=== PATIENT | female | born 1950 | race Caucasian/White ===

== ENCOUNTER 2017-01-07 12:59 | Emergency (ER) | payer SELFPAY ==
[2016-08-10 17:13] VITALS: BMI 21.3
[~2017-01-07 12:59] MED LIST: CARAFATE1 G PO; KLONOPIN1 MG PO; PEPCID INJ20 MG/2 ML PO
[2017-01-07 14:33] LABS: APPEARANCE HAZY (CLEAR); BACTERIA FEW /hpf (NONE SEEN); BILIRUBIN NEGATIVE (NEGATIVE); COLOR YELLOW (YELLOW); GLUCOSE NEGATIVE (NEGATIVE); GRANULAR CAST RARE /lpf (NONE SEEN); HYALINE CAST RARE /lpf (NONE SEEN); KETONE NEGATIVE (NEGATIVE); LEUKOCYTE ESTERASE NEGATIVE (NEGATIVE); MUCUS <1+ /lpf (NONE SEEN); NITRITE NEGATIVE (NEGATIVE); PROTEIN TRACE mg/dL (NEGATIVE); RED CELLS - URINE 0-5 /hpf (0-5); UROBILINOGEN NORMAL (NORMAL); WHITE CELLS - URINE 0-5 /hpf (0-5)
== END 2017-01-07 15:41 | disposition home or self-care (01) ==
LOC: D.ER 12:59
PROVIDERS: Emergency Medicine
DX: R10.9 Unspecified abdominal pain (principal); K29.00 Acute gastritis without bleeding; M79.1 Myalgia

== ENCOUNTER 2017-02-20 10:49 | Inpatient (IN) | payer SELFPAY ==
[~2017-02-20] VITALS: Ht 172.7 cm; Wt 64.4 kg
[2017-02-20 11:18] LABS: APPEARANCE CLEAR (CLEAR); BILIRUBIN NEGATIVE (NEGATIVE); COLOR STRAW (YELLOW); GLUCOSE NEGATIVE (NEGATIVE); KETONE NEGATIVE (NEGATIVE); LEUKOCYTE ESTERASE TRACE (NEGATIVE); NITRITE NEGATIVE (NEGATIVE); PROTEIN NEGATIVE (NEGATIVE); UROBILINOGEN NORMAL (NORMAL)
[2017-02-20 11:19] LABS: BACTERIA MODERATE /hpf (NONE SEEN); EPITHELIAL CELLS RARE /hpf (0-5); MUCUS <1+ /lpf (NONE SEEN); RED CELLS - URINE 0-5 /hpf (0-5); WHITE CELLS - URINE OCC /hpf (0-5)
[2017-02-20 11:22] LABS: BASOPHILS 0.2 % (0.0-2.0); EOSINOPHILS 0.2 % (0-7); HEMATOCRIT 42.8 % (36.0-48.0); HEMOGLOBIN 14.5 g/dL (12-16); IMMATURE GRANULOCYTES 0.3 % (0-5); LYMPHOCYTES 15.1 % (15-50); MCH 30.4 pg (26.0-34.0); MCHC 33.9 g/dL (31.0-37.0); MCV 89.7 fL (80.0-100.0); MEAN PLATELET VOLUME 11.1 fL (7.4-10.4); MONOCYTES 8.4 % (2-11); NEUTROPHILS 75.8 % (40-80); RBC 4.77 10x6/uL (4.00-5.40); RDW 13.6 % (11.5-14.5)
[2017-02-20 11:23] LABS: PLATELET COUNT 224 10x3/uL (130-400)
[2017-02-20 11:37] LABS: ALBUMIN 3.7 g/dL (3.4-5.0); ANION GAP 14.9 mmol/L (8-16); BILIRUBIN - TOTAL 1.02 mg/dL (0.2-1.3); CALCIUM 9.4 mg/dL (8.5-10.1); CARBON DIOXIDE 26.5 mmol/L (21.0-32.0); CREATININE - SERUM 0.9 mg/dL (0.6-1.3); POTASSIUM - SERUM 3.4 mmol/L (3.5-5.1); PROTEIN - SERUM 7.9 g/dL (6.4-8.2)
--- NOTE | 2017-02-20 13:50 | NUR ---
PATIENT RECEIVED TO FLOOR FROM ER VIA STRETCHER. PATIENT TRANSFERRED SELF TO STRETCHER. IV TO RIGHT HAND WITH NS@[address] AND VERIFIED WITH AIR BOLUS. CONNECT TO LIWS. PATIENT ORIENTED TO ROOM. STATES UNDERSTANDING. RATES PAIN 10/10. ASSESSMENT COMPLETE. SIDE RAILS UP X2. BED IN LOW POSITION. CALL LIGHT IN REACH.
--- NOTE | 2017-02-20 13:56 | NUR ---
2MG MORPHINE ADMINISTERED SLOW IVP PER PRN ORDER. WELL TOLERATED. DENIES FURTHER NEEDS. SIDE RAILS UP X2. BED IN LOW POSITION. CALL LIGHT IN REACH.
[2017-02-20 14:04] VITALS: BP 137/81; BMI 21.6
[2017-02-20 14:15] VITALS: BP 137/84
--- NOTE | 2017-02-20 16:30 | NUR ---
ALERT IN BED RESTING QUIETLY. RESPIRATIONS EVEN AND UNLABORED. SIDE RAILS UP X2. BED IN LOW POSITION. CALL LIGHT IN REACH.
--- NOTE | 2017-02-20 17:43 | NUR ---
PATIENT ALERT IN BED. C/O PAIN 07/17. MORPHINE ADMINISTERED PER ORDER. DENIES FURTHER NEEDS. SIDE RAILS UP X2. BED IN LOW POSITION. CALL LIGHT IN REACH.
--- NOTE | 2017-02-20 19:40 | NUR ---
RECIEVED SHIFT REPORT. PT IS LYING IN BED. ALERT AND ORIENTED AND ABLE TO VERBALIZE NEEDS. IV IS PATENT AND FLUIDS ARE RUNNING PER ORDER. NGT TO RIGHT NARE PATENT AND CONNECTED TO LIWS. PT IS AMBULATORY BUT WAS INSTRUCTED TO CALL FOR ANY ASSISTANCE NEEDED. PT STATES PAIN IS 7/10. NO NEEDS ARE VERBALIZED AT THIS TIME. WILL CONTINUE TO MONITOR. SIDE RAILS ARE UP X 2. BED IS IN LOWEST POSITION. CALL LIGHT IS WITHIN REACH.
[2017-02-20 20:00] VITALS: BP 127/63
--- NOTE | 2017-02-20 20:19 | NUR ---
CALLED SOLID PLASTERER IVY FOR PT REQUESTING HER HOME MEDICATION OF KLONOPIN. SOLID PLASTERER STATED THAT SHE WAS IN REPORT AND WOULD TAKE CARE OF IT.
--- NOTE | 2017-02-20 20:52 | NUR ---
SHIFT ASSESSMENT COMPLETED. PT C/O PAIN 05/16. ADMINISTERED PRESCRIBED PRN MORPHINE PER ORDER. DENIES FURTHER NEEDS. WILL MONITOR. SIDE RAILS X 2. BED LOW. CALL LIGHT IN REACH.
[2017-02-21] VITALS: BP 122/62
--- NOTE | 2017-02-21 01:20 | NUR ---
PT IV RESITED BY ANOTHER NURSE ON FLOOR. PT IV TO RIGHT HAND CATHETER TIP WAS OUT AND PUMP CONTINUED TO SAY OCCLUDED. D/C'D WITH CATHETER TIP INTACT. FLUIDS HOOKED BACK UP PER ORDER. SIDE RAILS X 2. BED LOW. CALL LIGHT IN REACH.
[2017-02-21 04:00] VITALS: BP 130/66
[2017-02-21 06:12] LABS: BASOPHILS 0.3 % (0.0-2.0); EOSINOPHILS 0.9 % (0-7); HEMATOCRIT 36.8 % (36.0-48.0); HEMOGLOBIN 12.2 g/dL (12-16); IMMATURE GRANULOCYTES 0.1 % (0-5); LYMPHOCYTES 27.7 % (15-50); MCH 30.3 pg (26.0-34.0); MCHC 33.2 g/dL (31.0-37.0); MCV 91.5 fL (80.0-100.0); MEAN PLATELET VOLUME 11.6 fL (7.4-10.4); MONOCYTES 11.4 % (2-11); NEUTROPHILS 59.6 % (40-80); PLATELET COUNT 206 10x3/uL (130-400); RBC 4.02 10x6/uL (4.00-5.40); RDW 13.5 % (11.5-14.5)
[2017-02-21 06:23] LABS: CALC OSMOLALITY 279 mosm/kg (275-300); CALCIUM 8.7 mg/dL (8.5-10.1); CHLORIDE - SERUM 106 mmol/L (98-107); CREATININE - SERUM 0.8 mg/dL (0.6-1.3); GLUCOSE 114 mg/dL (74-106); POTASSIUM - SERUM 3.2 mmol/L (3.5-5.1); SODIUM 141 mmol/L (136-145); eGFR NON AFRICAN AMERICAN 76 mL/min (90-120)
[2017-02-21 06:28] LABS: UREA NITROGEN 6 mg/dL (7-18)
--- NOTE | 2017-02-21 07:00 | NUR ---
REPORT RECIEVED ASSUMED CARE. PATIENT IN BED WITH IV INTACT. NO COMPLAINTS AT THIS TIME. NGT LIWS. CALL LIGHT WITHIN REACH.
[2017-02-21 08:26] VITALS: BP 121/73
--- NOTE | 2017-02-21 08:45 | NUR ---
PATIENT IV INFILTRATED. REMOVED WITH CATH TIP INTACT.
--- NOTE | 2017-02-21 11:01 | NUR ---
IV ACCESS-20 GAUGE INSERTED IN LEFT UPPER ARM FOR ACCESS. AMY LEONARD RN
--- NOTE | 2017-02-21 11:15 | NUR ---
PATIENT RECIEVED PAIN MED IVP SLOWLY OVER 2 MINUTES. NGT LIWS. NO COMPLAINTS. CALL LIGHT WITHIN REACH.
[2017-02-21 11:39] VITALS: BP 119/72
--- NOTE | 2017-02-21 13:35 | NUR ---
Patient Name: FABIAN CORTEZ Admission Status: ER Accout number: [id number] Admission Date: 02-20-2017 : 1950 Admission Diagnosis: Attending: SESAR Current LOS: 1 Anticipated DC Date: 02-24-2017 Planned Disposition: Home Primary Insurance: UNINSURED DISCOUNT PLAN Discharge Planning Comments: CM MET WITH PATIENT REGARDING D/C NEEDS AND PLANS. PATIENT STATED SHE LIVES WITH HER SISTER (MERLY) AND SHE WILL DRIVE HER HOME AT DISCHARGE. PATIENT STATED SHE HAS 8 STEPS W/RAILS TO ENTER HOME AND NO STAIRS INSIDE. PATIENT STATED SHE IS INDEPENDENT WITH HER CARE AND HAS NO DME AT HOME. PATIENTS PCP IS DR. GRAF AND PHARMACY IS [facility] [address]. PATIENT HAS NOT HAD HOME HEALTH AND DOES NOT WANT IT WHEN DISCHARGED. CM WILL CONTINUE TO FOLLOW PATIENT WITH D/C NEEDS AND PLANS. PCP DR[facility] [id number] MERLY MORRELL (SISTER) [phone] Spanish Linguist: Rukhsana Heath Is the patient Alert and Oriented? Yes 0 * How many steps to enter\exit or inside your home? 8 W/RAILS 0 * PCP DR. GRAF 0 * Pharmacy [facility] [address] 0 * Preadmission Environment Home with Family 0 * ADLs Independent 0 * Equipment None 0 * List name and contact numbers for known caregivers / representatives who currently or will assist patient after discharge: MERLY MORRELL (SISTER) [phone] 0 * Community resources currently utilized None 0 * Additional services required to return to the preadmission environment? Yes 0 * Can the patient safely return to the preadmission environment? Yes 0 * Has this patient been hospitalized within the prior 30 days at any hospital? No 0 Grand Total: 0
[2017-02-21 13:43] VITALS: Ht 172.7 cm; Wt 64.4 kg
[2017-02-21 15:26] VITALS: BP 120/78
--- NOTE | 2017-02-21 16:42 | NUR ---
PATIENT IN BED WITH IV INTACT. NGT LIWS. NO COMPLAINTS OR SIGNS OF DISTRESS AT THIS TIME. CALL LIGHTW ARMEN TY.
--- NOTE | 2017-02-21 18:50 | NUR ---
PATIENT IN BED WITH IV INTACT. COMPLAINTS OF NAUSEA REGLAN TO BE GIVEN. NGT INTACT AND TO LIWS. CALL LIGHT WITHIN REACH.
--- NOTE | 2017-02-21 19:35 | NUR ---
RECIEVED SHIFT REPORT. PT IS LYING IN BED. ALERT AND ORIENTED AND ABLE TO VERBALIZE NEEDS. IV IS PATENT AND FLUIDS ARE RUNNING PER ORDER. NGT TO RIGHT NARE PATENT AND CONNECTED TO LIWS. PT IS AMBULATORY BUT WAS INSTRUCTED TO CALL FOR ANY ASSISTANCE NEEDED. PT STATES PAIN IS 9/10. PT REQUESTING PRN ATIVAN AND MORPHINE. INSTRUCTED PT THAT I WOULD RETURN WITH MEDICATION AFTER MY ROUNDS. VERBALIZED UNDERSTANDING. NO FURTHER NEEDS VOICED AT THIS TIME. WILL CONTINUE TO MONITOR. SIDE RAILS ARE UP X 2. BED IS IN LOWEST POSITION. CALL LIGHT IS WITHIN REACH.
[2017-02-21 20:00] VITALS: BP 139/73
--- NOTE | 2017-02-21 20:17 | NUR ---
SHIFT ASSESSMENT COMPLETED. PT C/O PAIN 07/17 AND ANXIETY. ADMINISTERED PRN MORPHINE AND ATIVAN PER ORDER. DENIES FURTHER NEEDS. WILL MONITOR. SIDE RAILS X 2. BED LOW. CALL LIGHT IN REACH.
[2017-02-22] VITALS: BP 136/81
[2017-02-22 06:03] LABS: BASOPHILS 0.3 % (0.0-2.0); EOSINOPHILS 1.6 % (0-7); HEMATOCRIT 36.2 % (36.0-48.0); LYMPHOCYTES 33.7 % (15-50); MCH 30.2 pg (26.0-34.0); MCHC 33.1 g/dL (31.0-37.0); MEAN PLATELET VOLUME 11.2 fL (7.4-10.4); MONOCYTES 9.8 % (2-11); NEUTROPHILS 54.6 % (40-80); PLATELET COUNT 208 10x3/uL (130-400); RBC 3.98 10x6/uL (4.00-5.40); RDW 13.2 % (11.5-14.5); WBC 6.8 10x3/uL (4.8-10.8)
--- NOTE | 2017-02-22 07:00 | NUR ---
REPORT RECIEVED ASSUMED CARE. PATIENT IN BED WITH IV INTACT. NO COMPLAINTS. NGT LIWS. CALL LIGHT WITHIN REACH.
[2017-02-22 07:07] LABS: ALKALINE PHOSPHATASE 83 U/L (46-116); AMYLASE - SERUM 23 U/L (25-115); CALCIUM 9.1 mg/dL (8.5-10.1); CARBON DIOXIDE 28.5 mmol/L (21.0-32.0); CHLORIDE - SERUM 108 mmol/L (98-107); CREATININE - SERUM 0.6 mg/dL (0.6-1.3); GLUCOSE 116 mg/dL (74-106); LIPASE 77 U/L (73-393); MAGNESIUM - SERUM 1.8 mg/dL (1.8-2.4); PHOSPHOROUS 3.3 mg/dL (2.5-4.9); POTASSIUM - SERUM 3.6 mmol/L (3.5-5.1); SODIUM 143 mmol/L (136-145); THYROID STIMULATING HORMONE 2.04 uIU/mL (0.36-3.74); eGFR NON AFRICAN AMERICAN > 90 mL/min (90-120)
[2017-02-22 07:17] LABS: ALBUMIN 2.7 g/dL (3.4-5.0); ALT (SGPT) 16 U/L (10-68); CALC OSMOLALITY 282 mosm/kg (275-300); PROTEIN - SERUM 5.6 g/dL (6.4-8.2); UREA NITROGEN 3 mg/dL (7-18)
[2017-02-22 08:19] VITALS: BP 116/80
[2017-02-22 12:16] VITALS: BP 127/85
[2017-02-22 16:44] VITALS: BP 124/70
--- NOTE | 2017-02-22 18:30 | NUR ---
IV REMOVED BY STUDNET AND INSTRUCTOR DUE TO PATIENT IV HURTING. CATH TIP INTACT. PATIENT CALL LIGHT WITHIN REACH.
--- NOTE | 2017-02-22 18:50 | NUR ---
TRIED RESTARTING PATIENTS IV IN LUE X 3 STICKS. UNABLE TO START. TREVON TURNER WILL COME OVER AND TRY TO START PATIENT IV. PATIENT IN BED WITH NGT TO LIWS. FRIEND AT BEDSIDE. CALL LIGHT WITHIN REACH.
--- NOTE | 2017-02-22 19:40 | NUR ---
RECIEVED SHIFT REPORT. PT IS LYING IN BED. ALERT AND ORIENTED AND ABLE TO VERBALIZE NEEDS. PT WITHOUT IV ACCESS AT THIS TIME. DAY SHIFT ATTEMPTED MULTIPLE TIMES WITH NO SUCCESS. NGT TO RIGHT NARE INTACT AND CONNECTED TO LIWS. PT IS AMBULATORY BUT WAS INSTRUCTED TO CALL FOR ANY ASSISTANCE NEEDED. PT STATES PAIN IS 9/10. INSTRUCTED PT THAT SOON AN IV IS IN PLACE PAIN MEDICATION COULD BE ADMINISTERED. UNDERSTANDING VERBALIZED. NO NEEDS ARE VERBALIZED AT THIS TIME. WILL CONTINUE TO MONITOR. VISITOR AT BEDSIDE. SIDE RAILS ARE UP X 1. BED IS IN LOWEST POSITION. CALL LIGHT IS WITHIN REACH.
[2017-02-22 20:00] VITALS: BP 151/74
--- NOTE | 2017-02-22 20:44 | NUR ---
SHIFT ASSESSMENT COMPLETED. IV STARTTED BY ED NURSE. PT C/O PAIN 07/17. ADMINISTERED PRN MORPHINE PER ORDER. FLUIDS HOOKED BACK UP PER ORDER. DENIES FURTHER NEEDS. VISITOR AT BEDSIDE. WILL MONITOR. SIDE RAILS X 2. BED LOW. CALL LIGHT IN REACH.
[2017-02-23] VITALS: BP 114/65
[2017-02-23 04:00] VITALS: BP 113/68
[2017-02-23 05:37] LABS: BASOPHILS 0.8 % (0.0-2.0); EOSINOPHILS 1.8 % (0-7); HEMATOCRIT 36.4 % (36.0-48.0); IMMATURE GRANULOCYTES 0.3 % (0-5); LYMPHOCYTES 38.4 % (15-50); MCH 30.2 pg (26.0-34.0); MCV 91.5 fL (80.0-100.0); MEAN PLATELET VOLUME 12.1 fL (7.4-10.4); MONOCYTES 9.2 % (2-11); NEUTROPHILS 49.5 % (40-80); PLATELET COUNT 170 10x3/uL (130-400); RBC 3.98 10x6/uL (4.00-5.40); RDW 13.1 % (11.5-14.5); WBC 6.5 10x3/uL (4.8-10.8)
[2017-02-23 06:03] LABS: ALBUMIN 2.6 g/dL (3.4-5.0); ALKALINE PHOSPHATASE 75 U/L (46-116); ALT (SGPT) 13 U/L (10-68); CALCIUM 9.2 mg/dL (8.5-10.1); CARBON DIOXIDE 26.2 mmol/L (21.0-32.0); CREATININE - SERUM 0.7 mg/dL (0.6-1.3); GLUCOSE 107 mg/dL (74-106); UREA NITROGEN 3 mg/dL (7-18); eGFR NON AFRICAN AMERICAN 89 mL/min (90-120)
[2017-02-23 06:43] LABS: CALC OSMOLALITY 279 mosm/kg (275-300); CHLORIDE - SERUM 107 mmol/L (98-107); POTASSIUM - SERUM 3.2 mmol/L (3.5-5.1); SODIUM 142 mmol/L (136-145)
[2017-02-23 08:15] VITALS: BP 118/61
[2017-02-23 12:11] VITALS: BP 126/80
--- NOTE | 2017-02-23 13:16 | NUR ---
NUTRITION MONITORING & EVAL NOW WITH CLEAR LIQUID DIET>AAT. WILL MONITOR DIET ADVANCEMENT, PO INTAKE. RD FOLLOWING
[2017-02-23 20:00] VITALS: BP 136/68
--- NOTE | 2017-02-23 20:07 | NUR ---
PATIENT REQUESTED PAIN MEDICATION WHEN IT IS DUE. BED IN LOWEST POSITION AND CALL LIGHT WITHIN REACH. ENCOURAGED PATIENT TO CALL IF SHE HAS FURTHER NEEDS.
[2017-02-24] VITALS: BP 136/79
[2017-02-24 03:00] VITALS: BP 132/81
[2017-02-24 05:50] LABS: ALBUMIN 2.8 g/dL (3.4-5.0); ALKALINE PHOSPHATASE 77 U/L (46-116); ALT (SGPT) 13 U/L (10-68); BILIRUBIN - TOTAL 0.37 mg/dL (0.2-1.3); CALC OSMOLALITY 285 mosm/kg (275-300); CALCIUM 9.3 mg/dL (8.5-10.1); CARBON DIOXIDE 24.7 mmol/L (21.0-32.0); CHLORIDE - SERUM 111 mmol/L (98-107); CREATININE - SERUM 0.7 mg/dL (0.6-1.3); GLUCOSE 101 mg/dL (74-106); POTASSIUM - SERUM 3.4 mmol/L (3.5-5.1); PROTEIN - SERUM 6.4 g/dL (6.4-8.2); SODIUM 145 mmol/L (136-145); UREA NITROGEN 3 mg/dL (7-18); eGFR NON AFRICAN AMERICAN 89 mL/min (90-120)
[2017-02-24 06:19] LABS: BASOPHILS 0.9 % (0.0-2.0); EOSINOPHILS 2.1 % (0-7); HEMOGLOBIN 12.7 g/dL (12-16); IMMATURE GRANULOCYTES 0.6 % (0-5); LYMPHOCYTES 34.7 % (15-50); MCHC 33.4 g/dL (31.0-37.0); MCV 89.6 fL (80.0-100.0); MEAN PLATELET VOLUME 12.3 fL (7.4-10.4); MONOCYTES 8.2 % (2-11); NEUTROPHILS 53.5 % (40-80); RBC 4.24 10x6/uL (4.00-5.40); RDW 13.1 % (11.5-14.5); WBC 6.6 10x3/uL (4.8-10.8)
[2017-02-24 06:20] LABS: PLATELET COUNT 129 10x3/uL (130-400)
--- NOTE | 2017-02-24 07:20 | NUR ---
PATIENT RECEIVED IN BED ALERT. NO SIGNS OF DISTRESS NOTED. SIDE RAILS UP X2. BED IN LOW POSITION. CALL LIGHT IN REACH. DENIES NEEDS.
--- NOTE | 2017-02-24 07:43 | NUR ---
ALERT IN BED. KLONOPIN ADMINISTERED PER PRN ORDER. NGT CLAMPED. DENIES FURTHER NEEDS. SIDE RAILS UP X2. BED IN LOW POSITION. CALL LIGHT IN REACH.
--- NOTE | 2017-02-24 08:00 | NUR ---
PATIENT UP AMBULATING IN HALLWAY WITHOUT ASSIST. NO SIGNS OF DISTRESS NOTED. WILL CONTINUE TO MONITOR.
[2017-02-24 09:08] VITALS: BP 114/86
--- NOTE | 2017-02-24 11:02 | NUR ---
PATIENT C/O PAIN 06/16. MORPHINE ADMINISTERED PER PRN ORDER. DENIES FURTHER NEEDS. SIDE RAILS UP X2. BED IN LOW POSITION. CALL LIGHT IN REACH.
--- NOTE | 2017-02-24 11:05 | NUR ---
NGT D/C PER ORDER. TIP INTACT. WELL TOLERATED.
[2017-02-24 12:55] VITALS: BP 123/80
--- NOTE | 2017-02-24 12:55 | NUR ---
PATIENT SITTING UPRIGHT IN BED ALERT. NO SIGNS OF DISTRESS NOTED. STATES SHE'S TOLERATING CLEAR LIQUIDS WITHOUT DIFFICULTY. SIDE RAILS UP X2. BED IN LOW POSITION. CALL LIGHT IN REACH. DENIES NEEDS.
--- NOTE | 2017-02-24 14:30 | NUR ---
ALERT IN BED. NORCO ADMINISTERED PER PRN ORDER. POTASSIUM REPLACED PER PROTOCOL. DENIES NEEDS. BED IN LOW POSITION. SIDE RAILS UP X2. BED IN LOW POSITION. CALL LIGHT IN REACH.
--- NOTE | 2017-02-24 16:30 | NUR ---
PATIENT IN RIGHT LATERAL POSITION RESTING WITH EYES CLOSED. RESPIRATIONS EVEN AND UNLABORED. SIDE RAILS UP X2. BED IN LOW POSITION. CALL LIGHT IN REACH.
[2017-02-24 16:59] VITALS: BP 112/70
--- NOTE | 2017-02-24 18:07 | NUR ---
PATIENT IN MID KABA POSITION RESTING QUIETLY WITH EYES CLOSED. RESPIRATIONS EVEN AND UNLABORED. SIDE RAILS UP X2. BED IN LOW POSITION. CALL LIGHT IN REACH.
--- NOTE | 2017-02-24 19:38 | NUR ---
SITTING UP IN BED AWAKE, ASSESSMENT COMPLETED, NO ACUTE DISTRESS NOTED, DENIES NEEDS, LAB IN ROOM, SR'S UP, CL IN REACH, WILL MONITOR
[2017-02-24 20:00] VITALS: BP 114/61
--- NOTE | 2017-02-24 20:17 | NUR ---
PRN KLONOPIN GIVEN PER MAR, ABDIRIZAK WELL, DENIES FURTHER NEEDS AT THIS TIME, CL IN REACH
--- NOTE | 2017-02-24 22:37 | NUR ---
PRN NORCO GIVEN FOR C/O R SIDE PAIN 05/16, ABDIRIZAK WELL, DENIES OTHER NEEDS, FALL PRECAUTIONS IN PLACE, CL IN REACH
[2017-02-25] VITALS: BP 102/49
--- NOTE | 2017-02-25 00:37 | NUR ---
REGLAN GIVEN PER MAR, ABDIRIZAK WELL, RESTING WITH EYES CLOSED, RESP WITH EASE, SAFETY MEASURES IN PLACE, CL IN REACH
--- NOTE | 2017-02-25 01:58 | NUR ---
RESTING WITH EYES CLOSED, RESP WITH EASE, NO DISTRESS NOTED, SR'S UP X2, CL IN REACH
[2017-02-25 04:00] VITALS: BP 100/58
--- NOTE | 2017-02-25 05:20 | NUR ---
REGLAN GIVEN PER MAR, ABDIRIZAK WELL, LAB IN ROOM, CL IN REACH
[2017-02-25 06:22] LABS: BASOPHILS 0.9 % (0.0-2.0); EOSINOPHILS 2.3 % (0-7); HEMATOCRIT 33.5 % (36.0-48.0); HEMOGLOBIN 11.4 g/dL (12-16); LYMPHOCYTES 47.2 % (15-50); MCH 30.9 pg (26.0-34.0); MCV 90.8 fL (80.0-100.0); MEAN PLATELET VOLUME 11.2 fL (7.4-10.4); MONOCYTES 8.7 % (2-11); NEUTROPHILS 40.9 % (40-80); RBC 3.69 10x6/uL (4.00-5.40); RDW 13.3 % (11.5-14.5); WBC 5.3 10x3/uL (4.8-10.8)
[2017-02-25 06:26] LABS: PLATELET COUNT 255 10x3/uL (130-400)
[2017-02-25 06:49] LABS: ALBUMIN 2.4 g/dL (3.4-5.0); ALKALINE PHOSPHATASE 65 U/L (46-116); ALT (SGPT) 14 U/L (10-68); CALC OSMOLALITY 281 mosm/kg (275-300); CARBON DIOXIDE 26.9 mmol/L (21.0-32.0); CHLORIDE - SERUM 109 mmol/L (98-107); CREATININE - SERUM 0.7 mg/dL (0.6-1.3); GLUCOSE 96 mg/dL (74-106); POTASSIUM - SERUM 3.6 mmol/L (3.5-5.1); PROTEIN - SERUM 5.7 g/dL (6.4-8.2); SODIUM 143 mmol/L (136-145); eGFR NON AFRICAN AMERICAN 89 mL/min (90-120)
[2017-02-25 06:54] LABS: UREA NITROGEN 4 mg/dL (7-18)
--- NOTE | 2017-02-25 06:55 | NUR ---
PATIENT RECEIVED ALERT IN HIGH KABA POSITION. RESPIRATIONS EVEN AND UNLABORED. DENIES NEEDS. SIDE RAILS UP X2. BED IN LOW POSITION. CALL LIGHT IN REACH.
[2017-02-25 07:52] VITALS: BP 139/55
[2017-02-25] MEDS ORDERED: MIRALAX17 GM PO (11:26)
--- NOTE | 2017-02-25 11:45 | NUR ---
IV TO RIGHT FOREARM D/C WITH CATH TIP INTACT. SITE COVERED WITH GAUZE AND BANDAID. D/C TEACHING PROVIDED. STATES UNDERSTANDING.
--- NOTE | 2017-02-25 11:52 | NUR ---
PATIENT D/C HOME WITH SISTER. TRANSFERRED DOWNSTAIRS VIA WHEELCHAIR
--- NOTE | 2017-02-25 14:29 | NUR ---
LATE ENTRY: PATIENT D/C HOME WITH HOUSE CALLS-NO OTHER NEEDS-FAMILY DROVE HER HOME.
== END 2017-02-25 11:52 | disposition home or self-care (01) | DRG 389 ==
LOC: D.ER 10:49 → D.MS 12:00
PROVIDERS: Emergency Medicine; Family Medicine; ADMIT Emergency Medicine
PROC: 0D9670Z Drainage of Stomach with Drainage Device, Via Natural or Artificial Opening (ICD-10-PCS; principal; 2017-02-20)
DX: K56.7 Ileus, unspecified (principal); F10.239 Alcohol dependence with withdrawal, unspecified; F41.9 Anxiety disorder, unspecified; K58.9 Irritable bowel syndrome, unspecified; R00.0 Tachycardia, unspecified

== ENCOUNTER 2017-03-10 21:28 | Inpatient (IN) | payer SELFPAY ==
[~2017-03-10] VITALS: Ht 172.7 cm; Wt 64.4 kg
[~2017-03-10 21:28] MED LIST changes: +MIRALAX17 GM PO
[2017-03-10 23:00] LABS: BASOPHILS 0.6 % (0-2); EOSINOPHILS 1.8 % (0-7); HEMATOCRIT 47.6 % (36.0-48.0); HEMOGLOBIN 15.6 g/dL (12-16); IMMATURE GRANULOCYTES 0.3 % (0-5); LYMPHOCYTES 46.3 % (15-50); MCHC 32.8 g/dL (31.0-37.0); MCV 91.5 fL (80.0-100.0); MONOCYTES 5.4 % (2-11); NEUTROPHILS 45.6 % (40-80); RDW 13.7 % (11.5-14.5); WBC 8.7 10x3/uL (4.8-10.8)
[2017-03-10 23:01] LABS: PLATELET COUNT 400 10x3/uL (130-400)
[2017-03-10 23:19] LABS: ALBUMIN 3.7 g/dL (3.4-5.0); ALKALINE PHOSPHATASE 136 U/L (46-116); ALT (SGPT) 19 U/L (10-68); BILIRUBIN - TOTAL 0.18 mg/dL (0.2-1.3); CALC OSMOLALITY 285 mosm/kg (275-300); CALCIUM 9.4 mg/dL (8.5-10.1); CHLORIDE - SERUM 108 mmol/L (98-107); CREATININE - SERUM 0.7 mg/dL (0.6-1.3); GLUCOSE 107 mg/dL (74-106); POTASSIUM - SERUM 4.5 mmol/L (3.5-5.1); PROTEIN - SERUM 7.7 g/dL (6.4-8.2); SODIUM 144 mmol/L (136-145); UREA NITROGEN 10 mg/dL (7-18); eGFR NON AFRICAN AMERICAN 89 mL/min (90-120)
[2017-03-10 23:22] LABS: CREATINE KINASE 55 UL (21-215); MAGNESIUM - SERUM 2.3 mg/dL (1.8-2.4)
[2017-03-10 23:23] LABS: TROPONIN-I < 0.017 ng/mL (0.000-0.060)
[2017-03-10 23:43] LABS: APPEARANCE CLEAR (CLEAR); BILIRUBIN NEGATIVE (NEGATIVE); COLOR YELLOW (YELLOW); GLUCOSE NEGATIVE (NEGATIVE); KETONE NEGATIVE (NEGATIVE); LEUKOCYTE ESTERASE NEGATIVE (NEGATIVE); NITRITE NEGATIVE (NEGATIVE); PROTEIN NEGATIVE (NEGATIVE); UROBILINOGEN NORMAL (NORMAL)
--- NOTE | 2017-03-11 03:40 | NUR ---
PATIENT RECEIVED TO ROOM VIA STRETCHER. ALERT AND ORIENTED. C/O ABD PAIN 05/16. ORIENTED TO ROOM AND USE OF CALL LIGHT. ORDERED MEDICATIONS STARTED AND EDUCATED ON PHARMACY CONSULTANT USE. DENIES ANY NEEDS AT THIS TIME. BED LOW. CALL LIGHT IN REACH
[2017-03-11 04:00] VITALS: BP 118/48
[2017-03-11 04:09] VITALS: BP 118/48; BMI 21.6
[2017-03-11 08:05] VITALS: BP 119/59
--- NOTE | 2017-03-11 08:09 | NUR ---
PRINTER TECHNICIAN STATED "THE PATIENT SAID THE ATIVAN DID NOTHING FOR HER. AND HER OXYGEN LEVEL IS 88% ON ROOM AIR." WENT IN PATIENT'S ROOM. PATIENT RESTING QUIETLY WITH EYES CLOSED. PATIENT AROUSED EASILY, OXYGEN SATURATION 79% ON ROOM AIR. GRABBED NASAL CANNULA, PUT HER ON 2L/MIN, ABOUT 45 SECONDS LATER, OXYGEN SATURATION 91% ON 2L/MIN. EXPLAINED TO PATIENT THAT SHE IS GETTING A STRONG MEDICATION WITH THE BURRITO MAKER AND THE IV ATIVAN IS ALSO A SEDATIVE AND CAN LEAD TO OVER SEDATION AND RESPIRATORY DEPRESSION. MOVED BURRITO MAKER BUTTON OUT OF REACH. TOLD PATIENT I AM MOVING IT OUT OF REACH FOR NOW. SHE VERBALIZED UNDERSTANDING.
[2017-03-11 11:51] VITALS: BP 125/74
[2017-03-11 11:55] LABS: BASOPHILS 0.6 % (0-2); EOSINOPHILS 0.2 % (0-7); HEMATOCRIT 40.8 % (36.0-48.0); HEMOGLOBIN 13.4 g/dL (12-16); IMMATURE GRANULOCYTES 0.2 % (0-5); LYMPHOCYTES 15.1 % (15-50); MCH 30.2 pg (26.0-34.0); MCHC 32.8 g/dL (31.0-37.0); MCV 92.1 fL (80.0-100.0); MEAN PLATELET VOLUME 10.8 fL (7.4-10.4); MONOCYTES 4.6 % (2-11); NEUTROPHILS 79.3 % (40-80); PLATELET COUNT 341 10x3/uL (130-400); RBC 4.43 10x6/uL (4.00-5.40); RDW 13.8 % (11.5-14.5); WBC 9.5 10x3/uL (4.8-10.8)
--- NOTE | 2017-03-11 12:00 | NUR ---
IV TO LEFT BREAST GROUP HOME OUT. WILL NOT FLUSH. D/V IV. CALLED AMY VASCULAR ACCESS NURSE.
--- NOTE | 2017-03-11 12:05 | NUR ---
OBTAINED ORDER FOR IM ZOFRAN DUE TO PATIENT NAUSEOUS AND NO IV ACCESS AT THIS TIME
[2017-03-11 12:26] VITALS: Ht 172.7 cm; Wt 64.4 kg
[2017-03-11 15:48] VITALS: BP 109/73
[2017-03-11 20:00] VITALS: BP 138/71
[2017-03-12] VITALS: BP 136/71
[2017-03-12 04:00] VITALS: BP 122/60
[2017-03-12 06:52] LABS: BASOPHILS 0.6 % (0-2); EOSINOPHILS 1.9 % (0-7); HEMATOCRIT 37.3 % (36.0-48.0); HEMOGLOBIN 12.1 g/dL (12-16); IMMATURE GRANULOCYTES 0.6 % (0-5); MCHC 32.4 g/dL (31.0-37.0); MCV 92.3 fL (80.0-100.0); MONOCYTES 6.6 % (2-11); NEUTROPHILS 52.3 % (40-80); RBC 4.04 10x6/uL (4.00-5.40); RDW 13.5 % (11.5-14.5)
[2017-03-12 06:54] LABS: PLATELET COUNT 269 10x3/uL (130-400); WBC 6.4 10x3/uL (4.8-10.8)
[2017-03-12 07:10] LABS: ALBUMIN 2.9 g/dL (3.4-5.0); ALKALINE PHOSPHATASE 104 U/L (46-116); ALT (SGPT) 15 U/L (10-68); BILIRUBIN - TOTAL 0.78 mg/dL (0.2-1.3); CALC OSMOLALITY 276 mosm/kg (275-300); CALCIUM 9.2 mg/dL (8.5-10.1); CARBON DIOXIDE 27.6 mmol/L (21.0-32.0); CHLORIDE - SERUM 107 mmol/L (98-107); CREATININE - SERUM 0.6 mg/dL (0.6-1.3); GLUCOSE 102 mg/dL (74-106); POTASSIUM - SERUM 4.3 mmol/L (3.5-5.1); SODIUM 140 mmol/L (136-145); UREA NITROGEN 8 mg/dL (7-18); eGFR NON AFRICAN AMERICAN > 90 mL/min (90-120)
--- NOTE | 2017-03-12 08:25 | NUR ---
PATIENT RESTING IN THE BED. AWAKE, ALERT, AND ORIENTED X4. SCHEDULED MORNING MEDICATIONS GIVEN TO PATIENT. PATIENT TOLERATED WELL. PATIENT DENIES ANY NEEDS AT PRESENT TIME. CALL LIGHT IN PATIENT'S REACH. WILL MONITOR.
[2017-03-12 09:57] VITALS: BP 128/74
--- NOTE | 2017-03-12 11:34 | NUR ---
PATIENT COMPLAINS OF PAIN IN HER ABDOMEN. PATIENT RATES HER PAIN LEVEL AN "8" ON A 0-10 SCALE. PRN DILAUDID GIVEN TO PATIENT FOR PAIN. PATIENT TOLERATED WELL. CALL LIGHT IN PATIENT'S REACH. WILL MONITOR.
[2017-03-12 11:56] VITALS: BP 135/66
--- NOTE | 2017-03-12 14:00 | NUR ---
BECKER CATHETER DC'D. BULB DEFLATED WITH 10 ML OF SALINE NOTED. PATIENT TOLERATED WELL. URINE CULTURE SENT TO THE LAB. WILL MONITOR PATIENT FOR VOIDING.
[2017-03-12 16:32] VITALS: BP 138/64
--- NOTE | 2017-03-12 19:30 | NUR ---
PT. IN BED WITH HOB UP FOR COMFORT. IV AT RT A.C. INFUSING WITHOUT ALARMS. PT. C/O RIGHT KNEE PAIN THAT WAS NOTICIED WHEN SHE FIRST GOT OOB TODAY. PT. STATES SHE FELL AT HOME AND THINKS SHE LANDED ON IT. NO VISIBLE DISCOLORATION BUT SLIGHT SWELLING OBSERVED. CALL LIGHT WITHIN REACH. ASSESSMENT COMPLETED.
[2017-03-12 20:00] VITALS: BP 126/78
--- NOTE | 2017-03-12 23:05 | NUR ---
PT. IN BED WITH HOB UP FOR COMFORT AND WATCHING TV. NO VOICED NEEDS AT THIS TIME AND WILL CONTINUE TO MONITOR PT. FOR PAIN. CALL LIGHT WITHIN REACH.
--- NOTE | 2017-03-13 03:01 | NUR ---
PT. IN BED WITH HOB UP FOR COMFORT WITH EYES CLOSED AND RESP. DEEP AND EVEN. CALL LIGHT WITHIN REACH.
[2017-03-13 04:00] VITALS: BP 129/68
[2017-03-13 06:47] LABS: BASOPHILS 0.3 % (0-2); EOSINOPHILS 1.4 % (0-7); HEMATOCRIT 37.1 % (36.0-48.0); IMMATURE GRANULOCYTES 0.1 % (0-5); LYMPHOCYTES 30.4 % (15-50); MCH 29.9 pg (26.0-34.0); MCHC 32.3 g/dL (31.0-37.0); MCV 92.5 fL (80.0-100.0); MEAN PLATELET VOLUME 10.7 fL (7.4-10.4); MONOCYTES 8.9 % (2-11); NEUTROPHILS 58.9 % (40-80); PLATELET COUNT 254 10x3/uL (130-400); RBC 4.01 10x6/uL (4.00-5.40); RDW 13.2 % (11.5-14.5); WBC 7.4 10x3/uL (4.8-10.8)
[2017-03-13 07:00] VITALS: BP 107/67
[2017-03-13 07:10] LABS: ALBUMIN 2.7 g/dL (3.4-5.0); ALKALINE PHOSPHATASE 91 U/L (46-116); ALT (SGPT) 14 U/L (10-68); BILIRUBIN - TOTAL 0.91 mg/dL (0.2-1.3); CALC OSMOLALITY 276 mosm/kg (275-300); CALCIUM 9.1 mg/dL (8.5-10.1); CHLORIDE - SERUM 106 mmol/L (98-107); CREATININE - SERUM 0.6 mg/dL (0.6-1.3); GLUCOSE 113 mg/dL (74-106); POTASSIUM - SERUM 3.7 mmol/L (3.5-5.1); PROTEIN - SERUM 6.2 g/dL (6.4-8.2); SODIUM 140 mmol/L (136-145); UREA NITROGEN 5 mg/dL (7-18); eGFR NON AFRICAN AMERICAN > 90 mL/min (90-120)
--- NOTE | 2017-03-13 07:20 | NUR ---
PATIENT IS AWAKE, ALERT, AND ORIENTED X4. NO COMPLAINTS OF PAIN AT PRESENT TIME. PATIENT DENIES ANY NEEDS. CALL LIGHT IN PATIENT'S REACH. WILL MONITOR PATIENT.
--- NOTE | 2017-03-13 07:42 | NUR ---
PATIENT IS RESTING IN HER BED. PATIENT IS AWAKE, ALERT, AND ORIENTED X4. SCHEDULED MORNING MEDICATIONS GIVEN TO PATIENT. PATIENT TOLERATED WELL. ASSESSMENT COMPLETED. SEE FLOWSHEET FOR ANY DETAILS. PATIENT DENIES ANY NEEDS AT PRESENT TIME. CALL LIGHT IN PATIENT'S REACH. SCD'S ON PATIENT'S BILATERAL LOWER EXTREMITIES. WILL MONITOR PATIENT.
--- NOTE | 2017-03-13 12:15 | NUR ---
PATIENT TRANSFERRED VIA WHEELCHAIR TO HAVE AN MRI OF HER RIGHT KNEE.
[2017-03-13 12:32] VITALS: BP 126/76
--- NOTE | 2017-03-13 12:49 | NUR ---
PATIENT RETURNED TO HER ROOM VIA WHEELCHAIR FROM THE MRI CENTER.
--- NOTE | 2017-03-13 14:35 | NUR ---
DR HARDEN HERE. BLADDER SCAN PERFORMED SHOWING 204 ML OF URINE IN PATIENT'S BLADDER.
[2017-03-13 14:57] VITALS: BP 125/72
--- NOTE | 2017-03-13 19:30 | NUR ---
RECIEVED SHIFT REPORT. PT IS LYING IN BED. ALERT AND ORIENTED AND ABLE TO VERBALIZE NEEDS. IV IS PATENT AND FLUIDS ARE RUNNING PER ORDER. SCD'S OFF AT THIS TIME. PT IS AMBULATORY BUT WAS INSTRUCTED TO CALL FOR ANY ASSISTANCE NEEDED. PT STATES PAIN IS 9/10. NO NEEDS ARE VERBALIZED AT THIS TIME. WILL CONTINUE TO MONITOR. SIDE RAILS ARE UP X 2. BED IS IN LOWEST POSITION. CALL LIGHT IS WITHIN REACH.
[2017-03-13 20:00] VITALS: BP 125/70
--- NOTE | 2017-03-13 20:39 | NUR ---
SHIFT ASSESSMENT COMPLETED. NIGHT MEDS GIVEN WITH NO PROBLEMS. PT C/O PAIN 06/16. ADMINISTERED PRESCRIBED PRN DILAUDID PER ORDER. DENIES FURTHER NEEDS. WILL MONITOR. SIDE RAILS X 2. BED LOW. CALL LIGHT IN REACH.
[2017-03-14] VITALS: BP 122/66
[2017-03-14 04:00] VITALS: BP 117/72
[2017-03-14 06:13] LABS: BASOPHILS 0.5 % (0-2); EOSINOPHILS 2.2 % (0-7); HEMATOCRIT 36.5 % (36.0-48.0); IMMATURE GRANULOCYTES 0.2 % (0-5); LYMPHOCYTES 34.4 % (15-50); MCH 30.3 pg (26.0-34.0); MCHC 32.9 g/dL (31.0-37.0); MCV 92.2 fL (80.0-100.0); MEAN PLATELET VOLUME 11.1 fL (7.4-10.4); MONOCYTES 8.7 % (2-11); PLATELET COUNT 236 10x3/uL (130-400); RBC 3.96 10x6/uL (4.00-5.40); RDW 13.3 % (11.5-14.5); WBC 6.3 10x3/uL (4.8-10.8)
[2017-03-14 06:36] LABS: ALBUMIN 2.7 g/dL (3.4-5.0); ALKALINE PHOSPHATASE 89 U/L (46-116); ALT (SGPT) 11 U/L (10-68); BILIRUBIN - TOTAL 0.36 mg/dL (0.2-1.3); CALC OSMOLALITY 279 mosm/kg (275-300); CALCIUM 9.3 mg/dL (8.5-10.1); CARBON DIOXIDE 28.9 mmol/L (21.0-32.0); CHLORIDE - SERUM 107 mmol/L (98-107); CREATININE - SERUM 0.7 mg/dL (0.6-1.3); GLUCOSE 109 mg/dL (74-106); POTASSIUM - SERUM 4.2 mmol/L (3.5-5.1); PROTEIN - SERUM 5.8 g/dL (6.4-8.2); SODIUM 141 mmol/L (136-145); eGFR NON AFRICAN AMERICAN 89 mL/min (90-120)
[2017-03-14 06:38] LABS: UREA NITROGEN 7 mg/dL (7-18)
--- NOTE | 2017-03-14 08:11 | NUR ---
FLAGYL IVPB STARTED INFUSING. ADMINISTERED KLONOPIN AND LIBRIUM, ALL OTHER MEDS HELD SINCE PT IN NPO. PT IN BED, DENIES ANY NEEDS AT THIS TIME. CALL LIGHT IN REACH, NAD NOTED, WILL CONTINUE TO MONITOR.
[2017-03-14 08:23] VITALS: BP 123/65
--- NOTE | 2017-03-14 09:56 | NUR ---
ADMINSTERED 0.5 OF DILAUDID FOR PAIN LEVEL OF 8/10. ALSO GAVE 4MG OF ZOFRAN PER PT REQUEST. PT DENIES ANY OTHER NEEDS AT THIS TIME. CALL LIGHT IN REACH, NAD NOTED, WILL CONTINUE TO MONITOR.
--- NOTE | 2017-03-14 10:43 | NUR ---
PT PRE-OP AT THIS TIME, WITH PECID. NAD NOTED, WILL CONTINUE TO MONITOR.
--- NOTE | 2017-03-14 12:30 | NUR ---
PT TRANSFERED TO GI LAB VIA BED, NAD NOTED.
[2017-03-14 13:35] VITALS: BP 113/73
--- NOTE | 2017-03-14 14:18 | NUR ---
PT TRANSFERED BACK TO ROOM 2202 VIA BED, VITAL SIGNS STABLE. PT DENIES ANY NEEDS AT THIS TIME. CALL LIGHT IN REACH, NAD NTOED, WILL CONTINUE TO MONITOR.
--- NOTE | 2017-03-14 16:53 | NUR ---
ADMINISTERED NORCO 10MG FOR PAIN LEVEL OF 8/10. PT STATES THAT SHE WANT THE DILUADID SHOT. INFORMED PT THAT SHE NEEDS TO TRY THE HYDROCODONE BECAUSE SHE IS NOT GOING BE DISCHARGE ON DILAUDID FOR PAIN WHEN SHE GOES HOME. PT DENIES ANY OTHER NEEDS AT THIS TIME. CALL LIGHT IN REACH, NAD NOTED, WILL CONTINUE TO MONITOR.
--- NOTE | 2017-03-14 17:56 | NUR ---
Patient Name: FABIAN CORTEZ Admission Status: ER Accout number: [id number] Admission Date: 03-11-2017 : 1950 Admission Diagnosis: Attending: SAÚL Current LOS: 3 Anticipated DC Date: 03-16-2017 Planned Disposition: Home Primary Insurance: UNINSURED DISCOUNT PLAN Discharge Planning Comments: CM MET WITH PATIENT REGARDING D/C NEEDS AND PLANS. PATIENT STATED SHE LIVES WITH HER SISTER (MERLY MORRELL) AND SHE WILL DRIVE HER HOME AT DISCHARGE. PATIENT HAS 8 STEPS W/RAILS TO ENTER HOME AND NO STAIRS INSIDE. PATIENT IS INDEPENDENT WITH HER CARE AND HAS NO DME AT HOME. PATIENTS PCP IS DR. GRAF AND PHARMACY IS [facility]. ON [address] PATIENT HAS REFUSED HOME HEALTH OR ANY OTHER NEEDS FOR D/C. CM WILL CONTINUE TO FOLLOW PATIENT WITH D/C NEEDS AND PLANS. PCP DR. GRAF [facility]. [phone] MERLY MORRELL (SISTER) [phone] Face Painter: Rukhsana Heath Is the patient Alert and Oriented? Yes 0 * How many steps to enter\exit or inside your home? 8 W/RAILS 0 * PCP DR. GRAF 0 * Pharmacy [facility]. ON [address] 0 * Preadmission Environment Home with Family 0 * ADLs Independent 0 * Equipment None 0 * List name and contact numbers for known caregivers / representatives who currently or will assist patient after discharge: MERLY MORRELL (SISTER) [phone] 0 * Community resources currently utilized None 0 * Additional services required to return to the preadmission environment? Yes 0 * Can the patient safely return to the preadmission environment? Yes 0 * Has this patient been hospitalized within the prior 30 days at any hospital? No 0 Grand Total: 0
--- NOTE | 2017-03-14 18:40 | NUR ---
PT WAS RECEIVED BY WHEELCHAIR TO 1218. PT VOIDED BEFORE GETTING IN BED. PT IS A VERY PLEASNT 66 Y/O FEMALE. GEN- AWAKE AND ALERT. LUNGS CLEAR. HEART- RRR. ABD- SOFT WITH TENDERNESS LOWER ABDOMEN. BS+. EXT - NO EDEMA. WARM AND DRY PULSES PALPABLE. IV R MIDLINE PATENT WITH D5 LR AT 30 CC/HR. PT REQUESTED DILAUDID. STATES SHE RECEIVED A NORCO AND IT DID NOT HELP AT ALL. DILAUDID GIVEN. BED IS LOW, SIDE RAILS UP X 2 AND CALL LIGHT IN REACH.
--- NOTE | 2017-03-14 19:15 | NUR ---
PM ROUNDS MADE, INFORMED PT THAT I WILL RETURN SHORTLY TO DO ASSESSMENT, PT VERBALIZES UNDERSTANDING, DENIES NEEDS AT THIS TIME
[2017-03-14 20:40] VITALS: BP 113/65
--- NOTE | 2017-03-14 20:40 | NUR ---
ASSESSMENT PER FLOW SHEET, VS OBTAINED, IV IN RIGHT AC INTACT WITH NO REDNESS OR EDEMA INFUSING VIA PUMP NS AT 30 ML/HR, PT REPORTS FLATUS, BM TODAY AND VOIDING BY SELF WITH NO DIFFICULTY, PT RATES ABD PAIN 04/16, PT REQUESTED DILAUDID, BUT INFORMED PT THAT I WILL ADM NORCO THIS TIME SINCE THATS WHAT SHE WILL BE GOING ON NORCO, PT VERBALIZES UNDERSTANDING, PT DENIES NEEDS AT THIS TIME
--- NOTE | 2017-03-14 21:10 | NUR ---
INFORMED PT THAT I WILL ADM 2100 WHEN RECEIVED FROM PHARMACY, PT VERBALIZES UNDERSTANDING, SCD'S APPLIED AND WORKING PROPERLY, PT DENIES NEEDS AT THIS TIME
--- NOTE | 2017-03-14 21:58 | NUR ---
PT UP TO BR WITH ASSISTANCE, GAIT STEADY, VOIDED BY SELF WITH NO DIFFICULTY, PT BACK TO BED, INFORMED PT THAT I WAS STILL WAITING ON HER MEDS FROM THE PHARMACY, PT VERBALIZES UNDERSTANDING, SCD'S BACK ON AND WORKING PROPERLY, PT DENIES FURTHER NEEDS
--- NOTE | 2017-03-14 22:30 | NUR ---
PT RESTING WITH EYES CLOSED, AROUSES TO SOFT VERBAL STIMULATION, ADM 2100 MEDS, NORCO, AND ZOFRAN PER MD ORDERS, SEE EMAR, JOS[facility]E HER[facility]ULES, PT DENIES FURTHER NEEDS
--- NOTE | 2017-03-14 23:32 | NUR ---
FLAGYL HUND VIA SECONDARY PER MD ORDERS, SEE EMAR
[2017-03-15 01:12] VITALS: BP 115/69
--- NOTE | 2017-03-15 01:12 | NUR ---
PT AWAKE, SCD'S DISCONNECTED, UP TO BR WITH ASSISTANCE, VOIDED BY SELF WITH NO DIFFICULTY, PT BACK TO BED, VS OBTAINED, SCD'S RECONNECTED AND WORKING PROPERLY, DENIES FURTHER NEEDS OR PAIN
--- NOTE | 2017-03-15 02:00 | NUR ---
PT RESTING WITH EYES CLOSED, RESP QUIET, NO DISTRESS NOTED, LEFT UNDISTURBED AT THIS TIME
--- NOTE | 2017-03-15 02:38 | NUR ---
PT CREW CALLER LIGHT, PT C/O ABD PAIN, ADM DILAUDID SIVP PER MD ORDERS, SEE EMAR, PT REQUESTED AND SERVED LEMON STEBBINS SODA, DENIES FURTHER NEEDS
--- NOTE | 2017-03-15 04:00 | NUR ---
PT RESTING WITH EYES CLOSED, RESP QUIET, NO DISTRESS NOTED, LEFT UNDISTURBED AT THIS TIME
--- NOTE | 2017-03-15 05:00 | NUR ---
PT RESTING WITH EYES CLOSED, RESP QUIET, NO DISTRESS NOTED, LEFT UNDISTURBED AT THIS TIME
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
[2017-03-15 06:43] LABS: BASOPHILS 0.5 % (0-2); EOSINOPHILS 3.4 % (0-7); HEMATOCRIT 38.8 % (36.0-48.0); HEMOGLOBIN 12.5 g/dL (12-16); LYMPHOCYTES 36.3 % (15-50); MCH 29.9 pg (26.0-34.0); MCHC 32.2 g/dL (31.0-37.0); MCV 92.8 fL (80.0-100.0); MONOCYTES 8.8 % (2-11); PLATELET COUNT 232 10x3/uL (130-400); RBC 4.18 10x6/uL (4.00-5.40); RDW 13.4 % (11.5-14.5); WBC 5.6 10x3/uL (4.8-10.8)
[2017-03-15 06:59] LABS: ALBUMIN 2.7 g/dL (3.4-5.0); ALKALINE PHOSPHATASE 77 U/L (46-116); CALCIUM 9.5 mg/dL (8.5-10.1); CARBON DIOXIDE 27.2 mmol/L (21.0-32.0); CHLORIDE - SERUM 107 mmol/L (98-107); CREATININE - SERUM 0.8 mg/dL (0.6-1.3); GLUCOSE 109 mg/dL (74-106); POTASSIUM - SERUM 3.7 mmol/L (3.5-5.1); PROTEIN - SERUM 6.3 g/dL (6.4-8.2); SODIUM 142 mmol/L (136-145); eGFR NON AFRICAN AMERICAN 76 mL/min (90-120)
--- NOTE | 2017-03-15 07:00 | NUR ---
SHIFT REPORT TO ANNA HOLLY RN
[2017-03-15 07:02] LABS: ALT (SGPT) 18 U/L (10-68); CALC OSMOLALITY 282 mosm/kg (275-300); UREA NITROGEN 10 mg/dL (7-18)
[2017-03-15 07:15] VITALS: BP 117/73
--- NOTE | 2017-03-15 07:15 | NUR ---
PT WAS RECEIVED THIS AM LYING IN BED SLEEPING. EASILY AWAKENED. VSS. GEN- AWAKE AND ALERT. LUNGS- CLEAR. HEART- RRR. ABD- SOFT WITH TENDERNESS LOWER ABDOMEN. BS+. EXT- NO EDEMA WITH SCD'S INTACT. IV PATENT R MIDLINE IV WITH NS INFUSING AT 30 CC/HR. BED IS LOW, SIDE RAILS UP X 2 AND CALL LIGHT IN REACH.
--- NOTE | 2017-03-15 09:47 | NUR ---
pt is resting in bed. c/o nausea. zofran given.
--- NOTE | 2017-03-15 11:38 | OP ---
PATIENT NAME: FABIAN CORTEZ MEDICAL RECORD: [id number] :54 LOCATION:[facility].1218 ADMISSION DATE:03/11/17 SURGEON: NIKO HARDEN MD DATE OF OPERATION: 03/14/2017 SURGEON: Niko Harden MD. ANESTHESIA: MAC by Dr. Pepper. PREOPERATIVE DIAGNOSES: Gross hematuria. POSTOPERATIVE DIAGNOSIS: Catheter irritation of the bladder mucosa. PROCEDURES PERFORMED: Cystoscopy, bilateral retrograde pyelogram. COMPLICATIONS: None. ESTIMATED BLOOD LOSS: None. CLINICAL HISTORY: The patient is a 66-year-old female, who presented to the Emergency Room with abdominal pain and diarrhea. On CT scan, she was found to have sigmoid diverticulitis. She has been started on IV antibiotics around the clock. While she was in the hospital, she was found to have urinary retention with a postvoid residual of 800 mL. She had an indwelling Castro catheter for some time and I discussed with her performance of intermittent catheterization. Prior to removing the Castro catheter, we noted that she had gross hematuria. Urine was sent for culture and the culture has shown no growth. Her latest post-void residual was 204 mL and she was taught how to perform self intermittent catheterization. Her CT scan shows no stones in the kidneys and no renal lesions. There is no hydronephrosis. Because she is a 2-pack per day smoker, we are performing cystoscopy to rule out any bladder tumors. Because she is already on IV antibiotics, no further antibiotics were given to the patient. Due to the expected brevity of this procedure, we did not give her general anesthetic, but used only MAC. DESCRIPTION OF PROCEDURE: The patient was given IV sedation. She was then placed in the dorsal lithotomy position and prepped and draped. A 21-Spanish cystoscope with 30-degree lens was used for visualization. She has single ureteral orifices on each side. No bladder tumors were seen. The bladder mucosa was inflamed and on the dome, there were some areas of irritation and previous bleeding from catheter irritation. An open-ended ureteral catheter was inserted into the right ureteral orifice and a retrograde pyelogram was performed with contrast diluted 1:1 with normal saline. No hydronephrosis, no filling defects were seen. The same procedure was repeated on the left side and again everything looked normal. The scope was then removed and the procedure was terminated. The entire procedure took 2-1/2 minutes. TRANSINT:[id number] Voice Confirmation ID: [id number] DOCUMENT ID: [id number] OPERATIVE REPORT [id number] FABIAN CORTEZ ROBERT S MD at 1138 CC: [id number] DICTATION DATE: 03/14/17 1439 MANAGER CATH LAB: 03/15/17 0010 ADM IN [place] [id number] [place] [address]
--- NOTE | 2017-03-15 11:41 | NUR ---
DR HARDEN IS HERE TO SEE PT. HE WOULD LIKE TO SEE HER FOR FOLLOW UP IN 2 WEEKS.
[2017-03-15] MEDS ORDERED: THIAMINE HCL50 MG PO (11:54)
[2017-03-15] MEDS ORDERED: FOLIC ACID1 MG PO (11:54)
[2017-03-15] MEDS ORDERED: LEVAQUIN750 MG PO (11:55)
[2017-03-15] MEDS ORDERED: FLAGYL500 MG PO (11:56)
--- NOTE | 2017-03-15 12:45 | NUR ---
PTS DISCHARGE INSTRUCTIONS WERE GIVEN AND DISCUSSED WITH PT. FU APPT WITH DR HARDEN WAS ALSO GIVEN. SHE HAS AN APPT TODAY WITH DR GRAF FOR HER YEARLY VISIT AND REFILL ON HER MEDS.
--- NOTE | 2017-03-15 13:15 | NUR ---
PTS IV R UPPER ARMD MIDLINE IV D'CD. TIP INTACT. PRESSURE DRESSING APPLIED.
--- NOTE | 2017-03-15 13:50 | NUR ---
PT DISCHARGED HOME. TAKEN TO VEHICLE BY WHEELCHAIR. HER SISTER PICKED HER UP.
--- NOTE | 2017-03-21 13:19 | EC ---
PATIENT:FABIAN CORTEZ DATE OF SERVICE: 03/11/17 SEX: F MEDICAL RECORD: [id number] DATE OF : [birth year] LOCATION:[place] [address] AGE OF PATIENT: 66 ADMISSION DATE: 03/11/17 REFERRING PHYSICIAN: INTERPRETING PHYSICIAN: ANASTASIA PANIAGUA MD ECHOCARDIOGRAM REPORT ECHO CHARGES 4 ECHO COMPLETE CLINICAL DIAGNOSIS: MURMUR/SYNCOPE ECHOCARDIOGRAPHIC MEASUREMENTS (adult normal given) AC root (d.<3.7cm) 3.2 LV Septum d (<1.2 cm> 1.8 Valve Excursion 1.8 LV Septum (systole) 2.4 Left Atria (s.<4.0cm> 3.5 LVPW d(<1.2cm) 1.3 RV (d.<2.3cm) 2.6 LVPW (sytole) 1.7 LV diastole(<5.6CM) 5.9 MV E-F(>70mm/sec) LV systole 3.9 LVOT Diameter 1.8 MV exc.(>10mm) Est.ejection fraction (50-75%) Pericardial Effusion N DOPPLER: LVIT A 67.0 E 121 LA RVSP 48.3 LVOT 108 AOP1/2T Asc. Ao 178 RVOT 87.0 RA PA 82.0 AV Gradient Peak 13.0 AV Mean 6.7 AV Area 2.1 MV Gradient Peak 6.5 MV Mean 2.7 MV Area COMMENTS: Breakdown Mill Operator: Anyi COREA BERKLEY Traffic Recorder:Dillon Ann TAPE# PACS DATE OF SERVICE: 03/12/2017 Adequate 2D echo, color flow, spectral Doppler, and M-mode. LVH present. LV internal dimensions are normal. Wall motion is normal. EF is greater than or equal to 55%. Aortic valve is tricuspid. No stenosis by Doppler interrogation. The left atrium is normal at 3.5 cm. The mitral valve shows no prolapse. Moderate MR. Right-sided chamber is normal. Mild TR. TRANSINT:[id number] Voice Confirmation ID: [id number] DOCUMENT ID: [id number] 03/18/2017 Edited to correct date of service, dmm. ECHOCARDIOGRAM REPORT [id number] LUCASFABIAN WILLSON JAM ANASTASIA PANIAGUA MD at 1319 CC: [id number] DICTATION DATE: 03/13/17816 INGOT PASSER: 03/13/17 1840 DIS IN 03/15/17 [facility] [address] [place] [address]
== END 2017-03-15 13:50 | disposition home or self-care (01) | DRG 392 ==
LOC: D.ER 21:28 → OBSVTIME 03-11 01:32 → D.MS 03-11 01:32 → D.WS 03-14 18:10
PROVIDERS: Emergency Medicine; ADMIT Family Medicine Adult Medicine
PROC: 0T9B70Z Drainage of Bladder with Drainage Device, Via Natural or Artificial Opening (ICD-10-PCS; principal; 2017-03-10)
PROC: 05HB33Z Insertion of Infusion Device into Right Basilic Vein, Percutaneous Approach (ICD-10-PCS; 2017-03-11)
PROC: B54MZZA Ultrasonography of Right Upper Extremity Veins, Guidance (ICD-10-PCS; 2017-03-11)
PROC: BT141ZZ Fluoroscopy of Kidneys, Ureters and Bladder using Low Osmolar Contrast (ICD-10-PCS; 2017-03-14)
DX: K57.92 Diverticulitis of intestine, part unspecified, without perforation or abscess without bleeding (principal); F10.239 Alcohol dependence with withdrawal, unspecified; R55 Syncope and collapse; F41.9 Anxiety disorder, unspecified; K58.9 Irritable bowel syndrome, unspecified; R10.9 Unspecified abdominal pain; R33.9 Retention of urine, unspecified; M25.461 Effusion, right knee; K59.00 Constipation, unspecified

== ENCOUNTER 2017-04-06 12:45 | Emergency (ER) | payer SELFPAY ==
[2017-03-11 12:26] VITALS: BMI 21.5
[~2017-04-06 12:45] MED LIST changes: +FLAGYL500 MG PO; +FOLIC ACID1 MG PO; +LEVAQUIN750 MG PO; +THIAMINE HCL50 MG PO
[2017-04-06 13:58] LABS: MCH 30.8 pg (26.0-34.0); MCHC 33.3 g/dL (31.0-37.0); MCV 92.3 fL (80.0-100.0); MEAN PLATELET VOLUME 10.9 fL (7.4-10.4); RBC 4.55 10x6/uL (4.00-5.40); RDW 13.8 % (11.5-14.5); WBC 6.9 10x3/uL (4.8-10.8)
[2017-04-06 13:59] LABS: PLATELET COUNT 313 10x3/uL (130-400)
[2017-04-06 14:00] LABS: APTT 26.4 SECONDS (22.8-39.4)
[2017-04-06 14:08] LABS: ALBUMIN 3.4 g/dL (3.4-5.0); ALKALINE PHOSPHATASE 97 U/L (46-116); ALT (SGPT) 18 U/L (10-68); BILIRUBIN - TOTAL 0.53 mg/dL (0.2-1.3); CALC OSMOLALITY 283 mosm/kg (275-300); CALCIUM 9.4 mg/dL (8.5-10.1); CARBON DIOXIDE 22.5 mmol/L (21.0-32.0); CHLORIDE - SERUM 108 mmol/L (98-107); CREATININE - SERUM 0.6 mg/dL (0.6-1.3); GLUCOSE 93 mg/dL (74-106); PROTEIN - SERUM 6.8 g/dL (6.4-8.2); SODIUM 143 mmol/L (136-145); UREA NITROGEN 10 mg/dL (7-18); eGFR NON AFRICAN AMERICAN > 90 mL/min (90-120)
[2017-04-06 14:40] LABS: ANISOCYTOSIS OCC; LYMPHOCYTES 53 % (15-50); MONOCYTES 5 % (2-11); NEUTROPHILS 41 % (40-80); PLATELET ESTIMATE NORMAL; ROULEAUX OCC
[2017-04-06 16:12] LABS: APPEARANCE CLEAR (CLEAR); BILIRUBIN NEGATIVE (NEGATIVE); COLOR YELLOW (YELLOW); GLUCOSE NEGATIVE (NEGATIVE); KETONE NEGATIVE (NEGATIVE); LEUKOCYTE ESTERASE NEGATIVE (NEGATIVE); NITRITE NEGATIVE (NEGATIVE); PROTEIN NEGATIVE (NEGATIVE); SPECIFIC GRAVITY 1.015 (1.005-1.020); UROBILINOGEN NORMAL (NORMAL)
== END 2017-04-06 16:55 | disposition home or self-care (01) ==
LOC: D.ER 12:45
PROVIDERS: Emergency Medicine
DX: R10.9 Unspecified abdominal pain (principal)

== ENCOUNTER 2017-04-17 13:15 | Emergency (ER) | payer SELFPAY ==
[2017-03-11 12:26] VITALS: BMI 21.5
[2017-04-17 14:32] LABS: BASOPHILS 0.2 % (0-2); EOSINOPHILS 0.2 % (0-7); HEMATOCRIT 48.2 % (36.0-48.0); HEMOGLOBIN 16.3 g/dL (12-16); IMMATURE GRANULOCYTES 0.1 % (0-5); LYMPHOCYTES 17.9 % (15-50); MCH 30.7 pg (26.0-34.0); MCHC 33.8 g/dL (31.0-37.0); MCV 90.8 fL (80.0-100.0); MEAN PLATELET VOLUME 11.5 fL (7.4-10.4); MONOCYTES 5.4 % (2-11); NEUTROPHILS 76.2 % (40-80); RBC 5.31 10x6/uL (4.00-5.40); RDW 14.1 % (11.5-14.5); WBC 9.1 10x3/uL (4.8-10.8)
[2017-04-17 14:34] LABS: PLATELET COUNT 229 10x3/uL (130-400)
[2017-04-17 14:43] LABS: ALBUMIN 4.2 g/dL (3.4-5.0); ANION GAP 16.7 mmol/L (8-16); BILIRUBIN - TOTAL 1.38 mg/dL (0.2-1.3); CARBON DIOXIDE 23.6 mmol/L (21.0-32.0); CREATININE - SERUM 0.9 mg/dL (0.6-1.3); POTASSIUM - SERUM 4.3 mmol/L (3.5-5.1); PROTEIN - SERUM 8.2 g/dL (6.4-8.2)
[2017-04-17 20:14] LABS: APPEARANCE CLEAR (CLEAR); BILIRUBIN NEGATIVE (NEGATIVE); COLOR YELLOW (YELLOW); GLUCOSE NEGATIVE (NEGATIVE); KETONE NEGATIVE (NEGATIVE); LEUKOCYTE ESTERASE NEGATIVE (NEGATIVE); NITRITE NEGATIVE (NEGATIVE); PROTEIN NEGATIVE (NEGATIVE); SPECIFIC GRAVITY 1.025 (1.005-1.020); UROBILINOGEN NORMAL (NORMAL)
[2017-04-17 20:16] LABS: BACTERIA FEW /hpf (NONE SEEN); EPITHELIAL CELLS 0-5 /hpf (0-5); RED CELLS - URINE 0-5 /hpf (0-5); WHITE CELLS - URINE 0-5 /hpf (0-5)
== END 2017-04-17 21:10 | disposition home or self-care (01) ==
LOC: D.ER 13:15
PROVIDERS: Family Medicine
DX: R10.9 Unspecified abdominal pain (principal); K52.9 Noninfective gastroenteritis and colitis, unspecified; R11.2 Nausea with vomiting, unspecified; R19.7 Diarrhea, unspecified; R68.83 Chills (without fever)

== ENCOUNTER 2017-05-02 14:27 | Emergency (ER) | payer SELFPAY ==
[2017-03-11 12:26] VITALS: BMI 21.5
[2017-05-02 15:21] LABS: BASOPHILS 0.6 % (0-2); EOSINOPHILS 1.2 % (0-7); HEMATOCRIT 42.7 % (36.0-48.0); HEMOGLOBIN 14.5 g/dL (12-16); IMMATURE GRANULOCYTES 0.1 % (0-5); LYMPHOCYTES 34.1 % (15-50); MCH 31.4 pg (26.0-34.0); MCV 92.4 fL (80.0-100.0); MEAN PLATELET VOLUME 10.8 fL (7.4-10.4); MONOCYTES 6.5 % (2-11); NEUTROPHILS 57.5 % (40-80); RBC 4.62 10x6/uL (4.00-5.40); RDW 13.9 % (11.5-14.5); WBC 6.8 10x3/uL (4.8-10.8)
[2017-05-02 15:23] LABS: APPEARANCE CLEAR (CLEAR); BILIRUBIN NEGATIVE (NEGATIVE); COLOR YELLOW (YELLOW); GLUCOSE NEGATIVE (NEGATIVE); KETONE NEGATIVE (NEGATIVE); LEUKOCYTE ESTERASE NEGATIVE (NEGATIVE); NITRITE NEGATIVE (NEGATIVE); PROTEIN NEGATIVE (NEGATIVE); SPECIFIC GRAVITY 1.015 (1.005-1.020); UROBILINOGEN NORMAL (NORMAL)
[2017-05-02 15:27] LABS: PLATELET COUNT 277 10x3/uL (130-400)
[2017-05-02 16:07] LABS: UDS - AMPHET NEGATIVE QUAL (NEGATIVE); UDS - BARB NEGATIVE QUAL (NEGATIVE); UDS - BENZO POSITIVE QUAL (NEGATIVE); UDS - COCAINE NEGATIVE QUAL (NEGATIVE); UDS - METH NEGATIVE QUAL (NEGATIVE); UDS - OPIATE NEGATIVE QUAL (NEGATIVE); UDS - PCP NEGATIVE QUAL (NEGATIVE); UDS - THC NEGATIVE QUAL (NEGATIVE)
[2017-05-02 16:08] LABS: ALBUMIN 4.3 g/dL (3.4-5.0); ALKALINE PHOSPHATASE 103 U/L (46-116); ALT (SGPT) 21 U/L (10-68); BILIRUBIN - TOTAL 0.59 mg/dL (0.2-1.3); CALC OSMOLALITY 274 mosm/kg (275-300); CALCIUM 10.1 mg/dL (8.5-10.1); CARBON DIOXIDE 24.2 mmol/L (21.0-32.0); CHLORIDE - SERUM 103 mmol/L (98-107); CREATININE - SERUM 0.8 mg/dL (0.6-1.3); GLUCOSE 96 mg/dL (74-106); POTASSIUM - SERUM 3.6 mmol/L (3.5-5.1); PROTEIN - SERUM 8.2 g/dL (6.4-8.2); SODIUM 138 mmol/L (136-145); UREA NITROGEN 9 mg/dL (7-18); eGFR NON AFRICAN AMERICAN 76 mL/min (90-120)
== END 2017-05-03 04:33 | disposition short-term general hospital (02) ==
LOC: D.ER 14:27
PROVIDERS: Emergency Medicine
DX: F32.9 Major depressive disorder, single episode, unspecified (principal); R45.851 Suicidal ideations

== ENCOUNTER 2017-06-14 15:48 | Inpatient (IN) | payer MEDICARE ==
[~2017-06-14] VITALS: Ht 172.7 cm; Wt 68.0 kg
[2017-06-14 17:46] LABS: BASOPHILS 0.4 % (0-2); EOSINOPHILS 2.2 % (0-7); HEMATOCRIT 38.5 % (36.0-48.0); HEMOGLOBIN 13.1 g/dL (12-16); IMMATURE GRANULOCYTES 0.2 % (0-5); LYMPHOCYTES 42.1 % (15-50); MCH 30.9 pg (26.0-34.0); MCV 90.8 fL (80.0-100.0); MONOCYTES 3.6 % (2-11); NEUTROPHILS 51.5 % (40-80); RBC 4.24 10x6/uL (4.00-5.40); RDW 13.6 % (11.5-14.5); WBC 5.5 10x3/uL (4.8-10.8)
[2017-06-14 17:48] LABS: ALBUMIN 3.4 g/dL (3.4-5.0); ALKALINE PHOSPHATASE 106 U/L (46-116); ALT (SGPT) 17 U/L (10-68); BILIRUBIN - TOTAL 0.41 mg/dL (0.2-1.3); CALC OSMOLALITY 280 mosm/kg (275-300); CALCIUM 8.8 mg/dL (8.5-10.1); CARBON DIOXIDE 25.9 mmol/L (21.0-32.0); CHLORIDE - SERUM 107 mmol/L (98-107); CREATININE - SERUM 0.8 mg/dL (0.6-1.3); GLUCOSE 92 mg/dL (74-106); MAGNESIUM - SERUM 2.6 mg/dL (1.8-2.4); POTASSIUM - SERUM 3.8 mmol/L (3.5-5.1); PROTEIN - SERUM 7.1 g/dL (6.4-8.2); SODIUM 142 mmol/L (136-145); UREA NITROGEN 8 mg/dL (7-18); eGFR NON AFRICAN AMERICAN 76 mL/min (90-120)
[2017-06-14 17:49] LABS: PLATELET COUNT 95 10x3/uL (130-400)
[2017-06-14 18:09] LABS: PLATELET ESTIMATE DECREASED
[2017-06-14 23:37] LABS: INR 0.98 (0.85-1.17); PROTIME 12.8 SECONDS (11.6-15.0)
[2017-06-15] VITALS: BP 125/73
[2017-06-15 04:00] VITALS: BP 124/43
[2017-06-15 04:51] VITALS: BP 125/73; BMI 22.8
--- NOTE | 2017-06-15 07:25 | NUR ---
PATIENT RECEIVED IN LOW POSITION ALERT. NO SIGNS OF DISTRESS NOTED. DENIES NEEDS. SIDE RAILS UP X2. BED IN LOW POSITION. CALL LIGHT IN REACH.
[2017-06-15 08:38] VITALS: BP 120/62
--- NOTE | 2017-06-15 09:35 | NUR ---
ALERT IN BED. NO SIGNS OF DISTRESS NOTED. SCHEDULED MEDICATION ADMINISTERED. DENIES NEEDS. SIDE RAILS UP X2. BED IN LOW POSITION. CALL LIGHT IN REACH.
[2017-06-15 10:01] LABS: BASOPHILS 0.5 % (0-2); EOSINOPHILS 1.8 % (0-7); HEMATOCRIT 38.9 % (36.0-48.0); HEMOGLOBIN 12.7 g/dL (12-16); IMMATURE GRANULOCYTES 0.2 % (0-5); LYMPHOCYTES 37.8 % (15-50); MCH 30.5 pg (26.0-34.0); MCHC 32.6 g/dL (31.0-37.0); MEAN PLATELET VOLUME 10.9 fL (7.4-10.4); MONOCYTES 7.5 % (2-11); NEUTROPHILS 52.2 % (40-80); RBC 4.16 10x6/uL (4.00-5.40); RDW 13.7 % (11.5-14.5)
[2017-06-15 10:12] LABS: MCV 93.5 fL (80.0-100.0); PLATELET COUNT 261 10x3/uL (130-400)
[2017-06-15] MEDS ORDERED: PAXIL CR25 MG PO (10:14)
[2017-06-15] MEDS ORDERED: SEROQUEL50 MG PO (10:14)
[2017-06-15] MEDS ORDERED: KLONOPIN1 MG PO (10:14)
[2017-06-15 10:35] LABS: ALBUMIN 3.3 g/dL (3.4-5.0); ANION GAP 11.2 mmol/L (8-16); BILIRUBIN - TOTAL 0.75 mg/dL (0.2-1.3); CALCIUM 8.5 mg/dL (8.5-10.1); CARBON DIOXIDE 29.1 mmol/L (21.0-32.0); CREATININE - SERUM 0.9 mg/dL (0.6-1.3); POTASSIUM - SERUM 4.3 mmol/L (3.5-5.1); PROTEIN - SERUM 6.8 g/dL (6.4-8.2)
[2017-06-15 11:06] VITALS: Ht 172.7 cm; Wt 68.0 kg
--- NOTE | 2017-06-15 11:55 | NUR ---
PATIENT C/O PAIN 07/17. DILAUDID ADMINISTERED SLOW IVP PER PRN ORDER. WELL TOLERATED. DENIES FURTHER NEEDS. SIDE RAILS UP X2. BED IN LOW POSITION. CALL LIGHT IN REACH.
[2017-06-15 12:57] VITALS: BP 128/76
--- NOTE | 2017-06-15 14:11 | NUR ---
SCD PLACED BILATERALLY ON PATIENT. INSTRUCTED ON USE. STATES UNDERSTANDING. DENIES NEEDS. SIDE RAILS UP X2. BED IN LOW POSITION. CALL LIGHT IN REACH.
--- NOTE | 2017-06-15 18:33 | NUR ---
ALERT IN BED. C/O PAIN 07/17. DILAUDID PER PRN ORDER. DENIES FURTHER NEEDS. SIDE RAILS UP X2. BED IN LOW POSITION. CALL LIGHT IN REACH.
[2017-06-15 20:00] VITALS: BP 131/86
[2017-06-16] VITALS (12 sets, daily range): BP systolic 114–150; BP diastolic 49–90
--- NOTE | 2017-06-16 00:23 | NUR ---
REC'D. AT [facility]. OF SHIFT IN BATHRM. REFUSED BSC REINFORCED TO CALL FOR ASSIT WHEN NEEDING TO GET UP VOICES UNDERSTANDING WILL CONTINUE TO MONITOR FOR ANY CHGES. IN NEUROVASCULAR STATUS AND FOLLOW CURRENT PLAN OF CARE
--- NOTE | 2017-06-16 03:34 | NUR ---
EYES CLOSED RESPIRATIONS WITH EASE AND UNLABORED.
[2017-06-16 05:50] LABS: BASOPHILS 0.5 % (0-2); EOSINOPHILS 3.4 % (0-7); HEMATOCRIT 37.7 % (36.0-48.0); HEMOGLOBIN 12.4 g/dL (12-16); IMMATURE GRANULOCYTES 0.2 % (0-5); LYMPHOCYTES 47.4 % (15-50); MCH 30.8 pg (26.0-34.0); MCHC 32.9 g/dL (31.0-37.0); MCV 93.5 fL (80.0-100.0); MONOCYTES 6.4 % (2-11); NEUTROPHILS 42.1 % (40-80); PLATELET COUNT 239 10x3/uL (130-400); RBC 4.03 10x6/uL (4.00-5.40); RDW 13.4 % (11.5-14.5); WBC 5.7 10x3/uL (4.8-10.8)
[2017-06-16 06:11] LABS: ALBUMIN 3.2 g/dL (3.4-5.0); ALKALINE PHOSPHATASE 165 U/L (46-116); CALC OSMOLALITY 284 mosm/kg (275-300); CALCIUM 8.8 mg/dL (8.5-10.1); CARBON DIOXIDE 30.1 mmol/L (21.0-32.0); CHLORIDE - SERUM 107 mmol/L (98-107); CREATININE - SERUM 0.8 mg/dL (0.6-1.3); GLUCOSE 92 mg/dL (74-106); PROTEIN - SERUM 6.6 g/dL (6.4-8.2); SODIUM 143 mmol/L (136-145); UREA NITROGEN 13 mg/dL (7-18); eGFR NON AFRICAN AMERICAN 76 mL/min (90-120)
[2017-06-16 06:19] LABS: ALT (SGPT) 49 U/L (10-68)
--- NOTE | 2017-06-16 07:20 | NUR ---
PATIENT RECEIVED ALERT IN MID KABA POSITION. RESPIRATIONS EVEN AND UNLABORED. SIDE RAILS UP X2. BED IN LOW POSITION. CALL LIGHT IN REACH. BED ALARM ON.
--- NOTE | 2017-06-16 08:45 | NUR ---
SITTING UP ON SIDE OF BED ALERT. NO SIGNS OF DISTRESS NOTED. DENIES NEEDS. BED IN LOW POSITION. CALL LIGHT IN REACH.
[2017-06-16 09:21] LABS: APPEARANCE CLEAR (CLEAR); BILIRUBIN NEGATIVE (NEGATIVE); COLOR YELLOW (YELLOW); GLUCOSE NEGATIVE (NEGATIVE); KETONE NEGATIVE (NEGATIVE); LEUKOCYTE ESTERASE 1+ (NEGATIVE); NITRITE NEGATIVE (NEGATIVE); PROTEIN NEGATIVE (NEGATIVE); SPECIFIC GRAVITY 1.015 (1.005-1.020); UROBILINOGEN NORMAL (NORMAL)
[2017-06-16 09:23] LABS: BACTERIA MODERATE /hpf (NONE SEEN); EPITHELIAL CELLS 0-5 /hpf (0-5); MUCUS <1+ /lpf (NONE SEEN)
--- NOTE | 2017-06-16 10:43 | NUR ---
ALERT IN BED. NO SIGNS OF DISTRESS NOTED. PRE PROCEDURE MEDICATION GIVEN WITH SIP OF WATER. WELL TOLERATED. DENIES NEEDS. JEWELRY REMOVED AND PLACED IN BAG WITH PATIENT LABEL. REFUSES TO HAVE PERSONAL BELONGINGS LOCKED IN SAFE. BED IN LOW POSITION. CALL LIGHT IN REACH.
--- NOTE | 2017-06-16 10:50 | NUR ---
Patient Name: FABIAN CORTEZ Admission Status: ER Accout number: [id number] Admission Date: 06-14-2017 : 1950 Admission Diagnosis: Attending: JEFERSON Current LOS: 2 Anticipated DC Date: Planned Disposition: Home Primary Insurance: MEDICARE A & B Discharge Planning Comments: CM met with patient to assess discharge planning needs. Patient lives in [facility] with her sister. Ngozi Elizondo ([phone]). She has a walker, shower chair, cane, and elevated toilet seat. Patient's plan is to return home with her sister (who is a nurse). Spoke a little about therapy options and she stated she would wait and talk to Dr Pham. CM will continue to follow and assist with discharge planning needs. PCP: Ryder Oscar on [address] Ngozi Elizondo ([phone]) sister Scrap Separator: Lissett De Paz * Is the patient Alert and Oriented? Yes 0 * How many steps to enter\exit or inside your home? 6 0 * PCP RYDER 0 * [facility] [address] [facility] * Preadmission Environment Home with Family 0 * ADLs Independent 0 * Equipment Cane Elevated [place] Seat Rolling Walker Shower Chair 0 * List name and contact numbers for known caregivers / representatives who currently or will assist patient after discharge: JOJO Elizondo (sister) [phone] 0 * Additional services required to return to the preadmission environment? Yes 0 * Can the patient safely return to the preadmission environment? Yes 0 * Has this patient been hospitalized within the prior 30 days at any hospital? No 0 Grand Total: 0
--- NOTE | 2017-06-16 11:40 | NUR ---
PATIENT OFF FLOOR TO SURGERY VIA BED.
--- NOTE | 2017-06-16 14:10 | NUR ---
PATIENT RECEIVED TO FLOOR FROM PACU. WAKES EASY. VITAL SIGNS STABLE. SIDE RAILS UP X2. BED IN LOW POSITION. CALL LIGHT IN REACH.
--- NOTE | 2017-06-16 14:20 | NUR ---
SCDS APPLIED BILATERALLY. ICE PACK IN PLACED. HEELS BRIDGED.
--- NOTE | 2017-06-16 14:25 | NUR ---
BUILT IN ALARM ON BED ON NOT WORKING. BOX ALARM ON ATTACHED TO PATIENT.
--- NOTE | 2017-06-16 17:23 | NUR ---
DILAUDID RN EMPLOYEE HEALTH SET UP. USE EXPLAINED. INCENTIVE SPIROMETER AND TEACHING PROVIDED. STATES UNDERSTANDING. DINNER TRAY SET UP. DENIES NEEDS. SIDE RAILS UP X2. BED IN LOW POSITION. CALL LIGHT AND RN EMPLOYEE HEALTH BUTTON IN REACH. BOX ALARM ON AND ATTACHED TO PATIENT.
--- NOTE | 2017-06-16 18:15 | NUR ---
CPM TO RIGHT LEG. INSTRUCTED PATIENT ON USE AND ROUTINE OF USING THEM TWICE A DAILY WHILE IN HOSPITAL. STATES UNDERSATNDING. SIDE RAILS UP X3. BED IN LOW POSITION. CALL LIGHT IN REACH. BOX ALARM ON.
--- NOTE | 2017-06-16 19:31 | NUR ---
AWAKE, ALERT AND ORIENTED X'S 4. NO SIGNS OF DISTRESS NOTED. CPM TO RIGHT LEG. ASSISTED PATIENT ON AND OFF OF THE BEDPAN. BROUGHT PATIENT A SPRITE. PATIENT DENIES FURTHER NEEDS AT THIS TIME. BOX ALARM ON. DOOR OPEN. BED IN LOWEST POSITION, CALL LIGHT IN REACH.
[2017-06-17] VITALS: BP 135/75
--- NOTE | 2017-06-17 03:36 | NUR ---
RESTING QUIETLY WITH EYES CLOSED.
[2017-06-17 04:00] VITALS: BP 126/67
--- NOTE | 2017-06-17 05:30 | NUR ---
CPM WILL NOT COME ON.
--- NOTE | 2017-06-17 06:50 | NUR ---
HEARD PATIENT YELLING HELP. WENT IN PATIENT'S ROOM, SHE IS SITTING ON THE FLOOR BESIDE THE BED, LEANING TO HER RIGHT SIDE, RIGHT KNEE IS BENT, LATERAL LEG IS TOUCHING THE FLOOR. THERE IS A PUDDLE OF BLOOD UNDER THE KNEE. PATIENT'S MIDLINE IS LAYING ON THE BED. MIDLINE CATHETER TIP INTACT, 13CM. WITH ASSIST FROM 2 OTHER NURSES GOT PATIENT BACK IN THE BED, PATIENT DID NOT STRAIGHTEN HER LEGS TO ASSIST WITH STANDING. PATIENT HAS A BOX ALARM STILL ATTACHED TO HER GOWN, BOX ALARM ON, STILL INTACT. HELD PRESSURE TO LEFT ARM UNTIL IT STOPPED BLEEDING. THE OTHER NURSES ASSISTED CLEANING THE BLOOD OFF OF PATIENT'S BODY. REMOVED DRESSING TO RIGHT KNEE. ALL CHRISTINE ARE INTACT. IT IS STILL BLEEDING. CLEANED WITH STERILE WOUND DIRECT OF REAL ESTATE AND STERILE GAUZE. PATTED DRY. APPLIED A NEW AQUACEL DRESSING. APPLIED 4X4 GAUZE, 2 ABD PADS, WRAPPED WITH KERLIX AND AN ERNESTO WRAP. CHANGED PATIENT'S LINENS. APPLIED A TAM MAT ALARM TO BED. CHECKED FUNCTIONING, IT IS TURNED ON. BED IN LOWEST POSITION, CALL LIGHT IN REACH. BED RAILS UP X'S 2. CLEANED THE BLOOD UP OFF OF THE FLOOR. PATIENT ASKED TO URINATE, ASSISTED PATIENT ON AND OFF OF THE BEDPAN. PATIENT DENIES FURTHER NEEDS.
--- NOTE | 2017-06-17 07:22 | NUR ---
LYING IN BED,WITHOUT DISTRESS.PT HAS FELL THIS AM.SOME BLEEDING FROM RIGHT KNEE. CECELIA VARGAS RN IS FOLLOWING UP WITH BOAT DESIGNER AND MD.
[2017-06-17 08:25] LABS: BASOPHILS 0 % (0-2); EOSINOPHILS 0 % (0-7); IMMATURE GRANULOCYTES 0.1 % (0-5); LYMPHOCYTES 13.7 % (15-50); MCH 31.2 pg (26.0-34.0); MCHC 34.4 g/dL (31.0-37.0); MEAN PLATELET VOLUME 11.9 fL (7.4-10.4); MONOCYTES 13.7 % (2-11); NEUTROPHILS 72.5 % (40-80)
[2017-06-17 08:28] LABS: HEMATOCRIT 28.2 % (36.0-48.0); HEMOGLOBIN 9.7 g/dL (12-16); MCV 90.7 fL (80.0-100.0); PLATELET COUNT 185 10x3/uL (130-400); RBC 3.11 10x6/uL (4.00-5.40); WBC 7.3 10x3/uL (4.8-10.8)
[2017-06-17 08:35] LABS: ALBUMIN 2.8 g/dL (3.4-5.0); ALKALINE PHOSPHATASE 106 U/L (46-116); CALCIUM 8.3 mg/dL (8.5-10.1); CARBON DIOXIDE 26.8 mmol/L (21.0-32.0); CHLORIDE - SERUM 101 mmol/L (98-107); CREATININE - SERUM 0.8 mg/dL (0.6-1.3); GLUCOSE 131 mg/dL (74-106); SODIUM 136 mmol/L (136-145); eGFR NON AFRICAN AMERICAN 76 mL/min (90-120)
[2017-06-17 08:40] LABS: CALC OSMOLALITY 272 mosm/kg (275-300); UREA NITROGEN 9 mg/dL (7-18)
[2017-06-17 08:41] LABS: ALT (SGPT) 32 U/L (10-68)
[2017-06-17 08:54] VITALS: BP 116/64
--- NOTE | 2017-06-17 10:08 | NUR ---
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
[2017-06-17 13:03] VITALS: BP 121/60
--- NOTE | 2017-06-17 16:21 | OP ---
PATIENT NAME: FABIAN CORTEZ MEDICAL RECORD: [id number] :[birth year] LOCATION:[id number] ADMISSION DATE:06/14/17 SURGEON: MECCA THOMAS MD DATE OF OPERATION: 06/16/2017 PREOPERATIVE DIAGNOSIS: Severe degenerative arthritis of the right knee. POSTOPERATIVE DIAGNOSIS: Severe degenerative arthritis of the right knee. PROCEDURE: Right total knee arthroplasty. SURGEON: Dayo Thomas MD ANESTHESIA: General. INTRAOPERATIVE COMPLICATIONS: None. SUMMARY OF PATHOLOGIC FINDINGS: The patient had severe tricompartmental osteoarthritis consistent with the preoperative diagnosis. IMPLANTS USED: [place]gemont triathlon total knee arthroplasty, press fit size 4 distal femur, size 16 polyethylene insert, size 4 tibial baseplate, and size 31 patellar component. OPERATIVE SUMMARY IN DETAIL: After obtaining the appropriate preoperative orthopedic surgery consent as well as anesthetic consultation, evaluation and clearance, the patient was brought to the operating room and placed on table in supine position. After general laryngeal mask was administered, tourniquet was placed about the proximal aspect of the right lower extremity. Right lower extremity was prepped and draped in routine sterile fashion. The leg was elevated and exsanguinated, tourniquet inflated to 350 mmHg. Routine midline incision was taken down for paramedian arthrotomy. Patella was everted, distal femur was exposed. Soft tissue excision was done in the usual fashion. Distal femoral intramedullary guide hole was created for distal femoral cutting. Proximal tibia was likewise exposed. Proximal tibial cut was made using intramedullary guidance as well. Appropriate measurements were taken. Chamfer cuts were made on the distal femur. Trials were put into place, taken through a range of motion and found to be stable in all planes. Final distal femoral and proximal tibial preparations were made for a press fit implant. The patella was likewise prepared for press fit patellar implant. Wound was copiously irrigated and the final components were put into place with good press-fit. The tibial, patellar and femoral components of the knee were taken through a range of motion and found to be stable in all planes. Paramedian arthrotomy was closed with #2 Vicryl followed by #1 Vicryl, 2-0 Vicryl and skin with narayan. Sterile dressings were applied. The patient was awakened and taken to recovery in stable condition. All final needle and sponge counts were correct. TRANSINT:[id number] Voice Confirmation ID: [id number] DOCUMENT ID: [id number] OPERATIVE REPORT [id number] FABIAN CORTEZ MD, MECCA BIGGS at 1621 CC: [id number] DICTATION DATE: 06/16/17 1347 TRUCK CHAUFFEUR: 06/16/17 1933 ADM IN [place] [id number] [place] [address]
[2017-06-17 20:00] VITALS: BP 119/71
--- NOTE | 2017-06-17 20:30 | NUR ---
SPOKE WITH , NOTIFIED HIM THAT THE CPM IS NOT WORKING
[2017-06-18] VITALS (7 sets, daily range): BP systolic 108–146; BP diastolic 51–652
[2017-06-18 04:48] LABS: BASOPHILS 0.2 % (0-2); EOSINOPHILS 0.2 % (0-7); HEMATOCRIT 26.8 % (36.0-48.0); IMMATURE GRANULOCYTES 0.1 % (0-5); LYMPHOCYTES 21.2 % (15-50); MCH 30.7 pg (26.0-34.0); MCHC 33.6 g/dL (31.0-37.0); MCV 91.5 fL (80.0-100.0); MONOCYTES 11.2 % (2-11); NEUTROPHILS 67.1 % (40-80); RBC 2.93 10x6/uL (4.00-5.40)
[2017-06-18 04:56] LABS: PLATELET COUNT 231 10x3/uL (130-400)
[2017-06-18 04:58] LABS: ALBUMIN 2.8 g/dL (3.4-5.0); ALKALINE PHOSPHATASE 96 U/L (46-116); ALT (SGPT) 24 U/L (10-68); BILIRUBIN - TOTAL 0.96 mg/dL (0.2-1.3); CALC OSMOLALITY 272 mosm/kg (275-300); CALCIUM 8.8 mg/dL (8.5-10.1); CARBON DIOXIDE 27.4 mmol/L (21.0-32.0); CHLORIDE - SERUM 104 mmol/L (98-107); CREATININE - SERUM 0.7 mg/dL (0.6-1.3); GLUCOSE 118 mg/dL (74-106); POTASSIUM - SERUM 3.4 mmol/L (3.5-5.1); PROTEIN - SERUM 6.6 g/dL (6.4-8.2); SODIUM 137 mmol/L (136-145); UREA NITROGEN 7 mg/dL (7-18); eGFR NON AFRICAN AMERICAN 89 mL/min (90-120)
--- NOTE | 2017-06-18 07:35 | NUR ---
ASSESSMENT COMPLETE. MIDLINE TO R ARM SL. DRESSING INTACT TO R LEG.TAM MAT IN USE. SCD IN USE TO L LEG. DISORIENTED TO TIME,PLACE AND SITUATION.
--- NOTE | 2017-06-18 11:05 | NUR ---
ASSISTED BACK TO BED.
[2017-06-19 04:02] VITALS: BP 120/59
[2017-06-19 06:23] LABS: BASOPHILS 0.1 % (0-2); EOSINOPHILS 0.7 % (0-7); HEMATOCRIT 24.2 % (36.0-48.0); HEMOGLOBIN 7.9 g/dL (12-16); IMMATURE GRANULOCYTES 0.2 % (0-5); MCH 29.9 pg (26.0-34.0); MCHC 32.6 g/dL (31.0-37.0); MCV 91.7 fL (80.0-100.0); MEAN PLATELET VOLUME 11.3 fL (7.4-10.4); MONOCYTES 8.8 % (2-11); NEUTROPHILS 69.2 % (40-80); PLATELET COUNT 209 10x3/uL (130-400); RBC 2.64 10x6/uL (4.00-5.40); RDW 12.9 % (11.5-14.5); WBC 8.4 10x3/uL (4.8-10.8)
[2017-06-19 06:35] LABS: ALBUMIN 2.4 g/dL (3.4-5.0); ALKALINE PHOSPHATASE 90 U/L (46-116); ALT (SGPT) 19 U/L (10-68); BILIRUBIN - TOTAL 0.66 mg/dL (0.2-1.3); CALC OSMOLALITY 270 mosm/kg (275-300); CALCIUM 8.6 mg/dL (8.5-10.1); CARBON DIOXIDE 27.3 mmol/L (21.0-32.0); CHLORIDE - SERUM 103 mmol/L (98-107); CREATININE - SERUM 0.6 mg/dL (0.6-1.3); GLUCOSE 112 mg/dL (74-106); POTASSIUM - SERUM 3.9 mmol/L (3.5-5.1); PROTEIN - SERUM 5.8 g/dL (6.4-8.2); SODIUM 136 mmol/L (136-145); UREA NITROGEN 7 mg/dL (7-18); eGFR NON AFRICAN AMERICAN > 90 mL/min (90-120)
--- NOTE | 2017-06-19 07:35 | NUR ---
ASSESSMENT COMPLETE. R MIDLINE SL. DRESSING C/D/I TO R KNEE. SCD IN USE TO L LEG. TAM MAT IN USE. COMPLAINING OF PAIN TO L KNEE.
[2017-06-19 08:32] VITALS: BP 121/68
--- NOTE | 2017-06-19 10:23 | NUR ---
1ST UNIT PRBC INFUSION STARTED. VSS. SITTING UP IN CHAIR. DENIES ANY NEEDS AT THIS TIME.
[2017-06-19 11:56] VITALS: BP 121/72
[2017-06-19 16:42] VITALS: BP 128/60
--- NOTE | 2017-06-19 17:20 | NUR ---
2ND UNIT PRBC INFUSION COMPLETED. VSS. DENIES ANY NEEDS AT THIS TIME.
[2017-06-19 19:00] VITALS: BP 103/55
--- NOTE | 2017-06-19 20:27 | NUR ---
ALERT AND ORIENTED X'S 4. RIGHT LEG IN CPM. ASSISTED PATIENT ON AND OFF OF THE BED MARKHAM, SHE VOIDED 300ML. TAM MAT ALARM ON. CALL LIGHT IN REACH. BED RAILS UP X'S 2.
--- NOTE | 2017-06-19 21:30 | NUR ---
ENTERED PATIENT'S ROOM, SHE HAD THE STRAPS OFF OF THE CPM AND HER FOOT OUT. ASSISTED HER GETTING ALL THE WAY OFF OF THE CPM. SHE STATED "I AM SORRY, I JUST COULD NOT STAND TO BE ON THERE FOR 1 MORE MINUTE." REMINDED HER TO USE THE CALL LIGHT IF SHE NEEDS ASSISTANCE. SHE VERBALIZED UNDERSTANDING.
--- NOTE | 2017-06-19 22:55 | NUR ---
RESTING QUIETLY WITH EYES CLOSED. NO SIGNS OF DISTRESS NOTED. BED IN LOWEST POSITION, CALL LIGHT IN REACH. BED RAILS UP X'S 2. TAM MAT ALARM ON. DOOR OPEN.
[2017-06-20] VITALS: BP 117/62
[2017-06-20 04:00] VITALS: BP 123/62
--- NOTE | 2017-06-20 05:30 | NUR ---
APPLIED CPM TO RIGHT LEG. ASSISTED PATIENT GETTING SET UP TO BRUSH HER TEETH. STAYED WITH HER UNTIL SHE FINISHED. CLEANED UP. PATIENT DENIES FURTHER NEEDS. BED IN LOWEST POSITION, CALL LIGHT IN REACH. BED RIALS UP X'S 2.
[2017-06-20 06:21] LABS: BASOPHILS 0.1 % (0-2); EOSINOPHILS 2.3 % (0-7); IMMATURE GRANULOCYTES 1.3 % (0-5); LYMPHOCYTES 27.4 % (15-50); MCHC 34.4 g/dL (31.0-37.0); MCV 90.1 fL (80.0-100.0); MEAN PLATELET VOLUME 11.7 fL (7.4-10.4); NEUTROPHILS 59.9 % (40-80); PLATELET COUNT 209 10x3/uL (130-400); RDW 13.9 % (11.5-14.5); WBC 7.9 10x3/uL (4.8-10.8)
[2017-06-20 06:24] LABS: HEMATOCRIT 31.7 % (36.0-48.0); HEMOGLOBIN 10.9 g/dL (12-16); RBC 3.52 10x6/uL (4.00-5.40)
[2017-06-20 06:37] LABS: BILIRUBIN - TOTAL 0.98 mg/dL (0.2-1.3); CARBON DIOXIDE 20.7 mmol/L (21.0-32.0)
[2017-06-20 06:38] LABS: ALKALINE PHOSPHATASE 4 U/L (46-116); ALT (SGPT) 2 U/L (10-68)
[2017-06-20 06:39] LABS: PROTEIN - SERUM 2.4 g/dL (6.4-8.2)
--- NOTE | 2017-06-20 07:20 | NUR ---
PATIENT RECEIVED IN MID KABA POSITION RESTING WITH EYES CLOSED. RESPIRATIONS EVEN AND UNLABORED. WAKES EASY. SCHEDULED MEDICATION ADMINISTERED. SIDE RAILS UP X2. BED IN LOW POSITION. CALL LIGHT IN REACH. TAM ALARM ON.
[2017-06-20 07:43] LABS: CALC OSMOLALITY 278 mosm/kg (275-300); CREATININE - SERUM 0.5 mg/dL (0.6-1.3); GLUCOSE 108 mg/dL (74-106); SODIUM 140 mmol/L (136-145); UREA NITROGEN 10 mg/dL (7-18); eGFR NON AFRICAN AMERICAN > 90 mL/min (90-120)
[2017-06-20 07:44] LABS: CALCIUM 8.8 mg/dL (8.5-10.1); CHLORIDE - SERUM 105 mmol/L (98-107); POTASSIUM - SERUM 4.1 mmol/L (3.5-5.1)
[2017-06-20 07:45] LABS: ALBUMIN 2.5 g/dL (3.4-5.0)
--- NOTE | 2017-06-20 08:24 | NUR ---
PATIENT ALERT IN BED. NO SIGNS OF DISTRESS NOTED. SCHEDULED MEDICATION ADMINSITERED. SIDE RAILS UP X3. BED IN LOW POSITION. CALL LIGHT IN REACH. TAM ALARM ON. DENIES NEEDS.
[2017-06-20 08:38] VITALS: BP 99/55
--- NOTE | 2017-06-20 10:06 | NUR ---
PATIENT SITTING UP IN CHAIR AT BEDSIDE. NO SIGNS OF DISTRESS NOTED. RATES PAIN 8/10. PERCOCET PER PRN ORDER. TAM ALARM ON. CALL LIGHT IN REACH. DOOR OPEN.
--- NOTE | 2017-06-20 11:19 | NUR ---
Rehab Prescreening Consult recieved and the chart has been reviewed. She meets IRF criteria, but the nurses notes indicate she is confused, disoriented and tries to get out of the bed. Discussed this with the RADHA Ching. She must be alert and able to co-operative enough to do 3 hrs of therapy every day 5 days a week. Vale Davila RN Clinical Liaison, Rehab
--- NOTE | 2017-06-20 11:26 | NUR ---
OT NOTE: PROVIDED PT WITH BS COMMODE TO PERFORM TOILETING WITH ASSIST OF STAFF. SAFETY AWARENESS EDUCATION PERFORMED WITH PT WITH INSTRUCTION TO USE CALL BUTTON BEFORE GETTING UP AND WHEN NEEDING TO USE BS COMMODE. REFER TO NANNETTE FOR FULL REPORT. DARIA HIGH, OTR/L
[2017-06-20 13:30] VITALS: BP 93/52
--- NOTE | 2017-06-20 14:00 | NUR ---
PATIENT IN MID KABA POSITION RESTING WITH EYES CLOSED. RESPIRATIONS EVEN AND UNLABORED. SIDE RAILS UP X2. BED IN LOW POSITION. CALL LIGHT IN REACH.
--- NOTE | 2017-06-20 16:56 | NUR ---
ALERT IN BED. C/O PAIN 07/17. PERCOCET PER PRN ORDER. NO FURTHER NEEDS VOICED. SIDE RAILS UP X3. BED IN LOW POSITION. CALL LIGHT IN REACH. TAM ALARM ON.
[2017-06-20 17:05] VITALS: BP 104/69
--- NOTE | 2017-06-20 17:43 | NUR ---
OT NOTE: PT COMPLETED BED MOB AND EOB SITTING BALANCE WITH SBA. PT COMPLETED BUE STRENGTHENING EXS FOR INCREASED I WITH RW. PT COMPLETED SIMPLE GROOMING WITH SBA. THANK YOU, MICHELE PÉREZ/Amanda
[2017-06-20 20:00] VITALS: BP 117/67
[2017-06-21] VITALS: BP 114/61
--- NOTE | 2017-06-21 02:00 | NUR ---
PATIENT STATED "WE ARE JUST PULLING SNAKES OUT OF MY BED. WE ALREADY GOT ONE OUT." REORIENTED PATIENT. SHE STATED "WHAT COULD BE CAUSING ME TO HAVE HALLUCINATIONS? I NEVER WOULD HAVE IMAGINED THAT IT COULD HAPPEN TO ME." BED IN LOWEST POSITION, CALL LIGHT IN REACH. BED RIALS UP X'S 2. TAM MAT ALARM ON.
--- NOTE | 2017-06-21 02:05 | NUR ---
HEARD A NOISE, WENT TO CHECK ON PATIENT, SHE WAS IN THE PROCESSES OF BRING HER LEGS OUT OF THE BED WHEN I WALKED IN. REMINDED PATIENT THAT SHE IS A MARILY FALL RISK, AND NOT SUPPOSED TO BE UP ALONE. SHE STATED "I KNOW. I AM NOT GETTING UP. WHAT IS THIS?" PATIENT PICKED UP AN ICE PACK, I TOLD HER IT IS AN ICE PACK. SHE STATED "SO IT IS NOT A SNAKE?" I STATED "NO. THERE ARE NO SNAKES. WE ARE IN THE HOSPITAL." LOWERED HOB THE BED FROM A 30 DEGREE ANGLE TO A 10 DEGREE ANGLE TO SEE IF THAT WILL HELP PATIENT GET SOME SLEEP.
[2017-06-21 04:00] VITALS: BP 104/54
[2017-06-21 06:10] LABS: BASOPHILS 0.4 % (0-2); EOSINOPHILS 2.3 % (0-7); HEMATOCRIT 31.2 % (36.0-48.0); HEMOGLOBIN 10.4 g/dL (12-16); IMMATURE GRANULOCYTES 0.3 % (0-5); LYMPHOCYTES 30.1 % (15-50); MCH 29.8 pg (26.0-34.0); MCHC 33.3 g/dL (31.0-37.0); MCV 89.4 fL (80.0-100.0); MONOCYTES 10.7 % (2-11); NEUTROPHILS 56.2 % (40-80); PLATELET COUNT 243 10x3/uL (130-400); RBC 3.49 10x6/uL (4.00-5.40); RDW 13.4 % (11.5-14.5); WBC 7.1 10x3/uL (4.8-10.8)
--- NOTE | 2017-06-21 06:15 | NUR ---
PATIENT BACK IN BED AFTER USING THE BEDSIDE COMMODE TO VOID. PATIENT REQUIRED MINIMAL ASSISTANCE TRANSFERING FROM THE BED TO THE BEDSIDE COMMODE USING THE WALKER. APPLIED CPM TO RIGHT LEG. PATIENT VERBALIZING PAIN FROM THE CPM. THE CPM IS IN CORRECT POSITION. SHE VERBALIZES PAIN WHEN THE ANGLE GOES ABOVE 60 DEGREES. TAM MAT ALARM ON. BED IN LOWEST POSITION, CALL LIGHT IN REACH. BED RIALS UP X'S 2.
[2017-06-21 06:40] LABS: ALBUMIN 2.5 g/dL (3.4-5.0); ALKALINE PHOSPHATASE 108 U/L (46-116); BILIRUBIN - TOTAL 1.19 mg/dL (0.2-1.3); CALC OSMOLALITY 275 mosm/kg (275-300); CALCIUM 8.8 mg/dL (8.5-10.1); CHLORIDE - SERUM 103 mmol/L (98-107); CREATININE - SERUM 0.6 mg/dL (0.6-1.3); GLUCOSE 114 mg/dL (74-106); POTASSIUM - SERUM 3.5 mmol/L (3.5-5.1); SODIUM 138 mmol/L (136-145); UREA NITROGEN 9 mg/dL (7-18); eGFR NON AFRICAN AMERICAN > 90 mL/min (90-120)
[2017-06-21 06:41] LABS: ALT (SGPT) 21 U/L (10-68); CARBON DIOXIDE 26.2 mmol/L (21.0-32.0)
--- NOTE | 2017-06-21 07:15 | NUR ---
PATIENT RECEIVED IN MID KABA POSITION RESTING WITH EYES CLOSED. RESPIRATIONS EVEN AND UNLABORED. CPM TO RIGHT LEG. SIDE RAILS UP X3. BED IN LOW POSITION. CALL LIGHT IN REACH. TAM ALARM ON.
--- NOTE | 2017-06-21 07:29 | NUR ---
PT SEEN AND ASSESSED. ORIENTED AT PRESENT WITH NO COMPLAINTS OF PAIN. STATES WAS UP BY HERSELF DURING NIGHT TO BSC-INSTRUCTED PT SHE WAS NOT TO BE UP WITHOUT NURSING ASSIST FROM STAFF. BED ALARM ON PER TAM MAT. DRESSING NOTED RIGHT KNEE WITH OLD BLEEDING NOTED ON DRESSING. CURRENTLY IN CPM MACHINE. WILL REMOVE AROUND 0900. CALL LIGHT IN PLACE.
[2017-06-21 09:23] VITALS: BP 121/65
--- NOTE | 2017-06-21 11:00 | NUR ---
PATIENT ASSISTED UP TO BSC THEN BACK TO BED. REDNESS NOTED BUTTOCK, BUT NO OPEN AREAS. POSITIONED FOR COMFORT. SIDE RAILS UP X2. BED IN LOW POSITION. CALL LIGHT IN REACH. TAM ALARM ON.
--- NOTE | 2017-06-21 11:33 | NUR ---
In Patient rehab stated that they would accept the patient today. Imm served to patient CM will continue to assist as needed.
[2017-06-21 12:59] VITALS: BP 93/63
[2017-06-21] MEDS ORDERED: ELIQUIS2.5 MG PO (14:39)
[2017-06-21] MEDS ORDERED: ZOFRAN ODT4 MG/UDTAB PO (14:40)
[2017-06-21] MEDS ORDERED: THIAMINE HCL50 MG PO (14:40)
[2017-06-21] MEDS ORDERED: FOLIC ACID1 MG PO (14:40)
[2017-06-21] MEDS ORDERED: PROTONIX40 MG PO (14:40)
[2017-06-21] MEDS ORDERED: PERCOCET 10/3251 TA1 PO (16:03)
--- NOTE | 2017-06-21 16:26 | NUR ---
Rehab Note- Visited with the patient concerning acute inpatient rehab. Plan to admit today. Thank you for this referral! Marine Bhandari RN Clinical Liaison, [facility] Rehab
[2017-06-21 16:58] VITALS: BP 116/89
--- NOTE | 2017-06-21 17:02 | NUR ---
REPORT CALL TO [facility]. BRIAN LUCIANO RECEIVED REPORT
--- NOTE | 2017-06-21 17:09 | NUR ---
OT NOTE: PT SEEN IN AM AND WAS INITITALLY ON THE PHONE AND MADE NO EFFORT TO END CALL. PT SEEN LATER IN AM, PRACTICED TRANSFER FROM BED TO TOILET WITH MIN ASSIST; CUES REQURIED FOR SAFETY AND WALKER MGMT; ABLE TO PERFORM GROOMING TASKS WITH SET UP AND VC; PT REMAINS CONFUSED THROUGHOUT SESSION. PRACTICED STANDING ACT WITH MOD ASSIST DUE TO LOSS OF BALANCE; BED MOB WITH MIN ASSIST. PT TO BE TRANSFERRED TO REHAB LATER TODAY
--- NOTE | 2017-06-21 17:20 | NUR ---
DRESSING TO RIGHT KNEE CHANGED. CHRISTINE INTACT. NO REDNESS, INFLAMMATION OR DRAINAGE NOTED. NEW AQUACEL AG APPLIED. WELL TOLERATED.
--- NOTE | 2017-06-21 17:45 | NUR ---
PATIENT D/C TO REHAB. TRANSFERRED DOWNSTAIRS VIA WHEELCHAIR WITH STAFF.
== END 2017-06-21 17:45 | DRG 470 ==
LOC: D.ER 15:48 → D.MS 19:30
PROVIDERS: Emergency Medicine; Orthopaedic Surgery; ADMIT Family Medicine
PROC: 05HC33Z Insertion of Infusion Device into Left Basilic Vein, Percutaneous Approach (ICD-10-PCS; principal; 2017-06-15)
PROC: B54NZZA Ultrasonography of Left Upper Extremity Veins, Guidance (ICD-10-PCS; 2017-06-15)
PROC: 0SRD0JA Replacement of Left Knee Joint with Synthetic Substitute, Uncemented, Open Approach (ICD-10-PCS; 2017-06-16)
DX: M17.11 Unilateral primary osteoarthritis, right knee (principal); D62 Acute posthemorrhagic anemia; F10.20 Alcohol dependence, uncomplicated; K58.9 Irritable bowel syndrome, unspecified; G62.9 Polyneuropathy, unspecified

== ENCOUNTER 2017-06-21 16:49 | Inpatient (IN) | payer MEDICARE ==
[~2017-06-21] VITALS: Ht 172.7 cm; Wt 65.8 kg
[~2017-06-21 16:49] MED LIST changes: +ELIQUIS2.5 MG PO; +PAXIL CR25 MG PO; +PERCOCET 10/3251 TA1 PO; +PROTONIX40 MG PO; +SEROQUEL50 MG PO; +ZOFRAN ODT4 MG/UDTAB PO
--- NOTE | 2017-06-21 19:07 | NUR ---
RECIEVED LYING IN BED WITH HOB ELEVATED AND TV ON. NO S/S OF DISTRESS OBSERVED. PLEASANT AND TALKATIVE. CALL LIGHT IN REACH.
--- NOTE | 2017-06-21 19:54 | NUR ---
PATIENT DISCHARGED TO PCU. REPORT CALLED TO [facility]UNCION TORRES. TRANSFERED UP IN WHEEL CHAIR. FAMILY AWARE.
[2017-06-21 20:45] VITALS: BP 118/59; BMI 22.0
--- NOTE | 2017-06-21 22:40 | NUR ---
RESTING IN BED WITH EYES CLOSED AT THIS TIME. NO S/S OF DISTRESS OBSERVED. HOB ELEVATED. CALL LIGHT AND OVERBED TABLE IN REACH.
--- NOTE | 2017-06-22 00:40 | NUR ---
RESTING IN BED WITH EYES CLOSED. NO S/S OF DISTRESS OBSERVED. CALL LIGHT AND OVERBED TABLE IN REACH.
--- NOTE | 2017-06-22 02:19 | NUR ---
RESTING IN BED WITH EYES CLOSED. NO S/S OF DISTRESS OBSERVED. CALL LIGHT AND OVERBED TABLE IN REACH.
[2017-06-22 05:47] LABS: BASOPHILS 0.3 % (0-2); EOSINOPHILS 2.3 % (0-7); HEMATOCRIT 30.3 % (36.0-48.0); HEMOGLOBIN 10.2 g/dL (12-16); IMMATURE GRANULOCYTES 0.4 % (0-5); LYMPHOCYTES 19.6 % (15-50); MCH 30.4 pg (26.0-34.0); MCHC 33.7 g/dL (31.0-37.0); MCV 90.2 fL (80.0-100.0); MEAN PLATELET VOLUME 10.6 fL (7.4-10.4); MONOCYTES 12.6 % (2-11); NEUTROPHILS 64.8 % (40-80); RBC 3.36 10x6/uL (4.00-5.40); RDW 13.1 % (11.5-14.5); WBC 6.9 10x3/uL (4.8-10.8)
[2017-06-22 05:56] LABS: PLATELET COUNT 325 10x3/uL (130-400)
[2017-06-22 06:02] LABS: CALC OSMOLALITY 279 mosm/kg (275-300); CARBON DIOXIDE 26.1 mmol/L (21.0-32.0); CHLORIDE - SERUM 103 mmol/L (98-107); CREATININE - SERUM 0.7 mg/dL (0.6-1.3); GLUCOSE 142 mg/dL (74-106); SODIUM 140 mmol/L (136-145); UREA NITROGEN 9 mg/dL (7-18); eGFR NON AFRICAN AMERICAN 89 mL/min (90-120)
--- NOTE | 2017-06-22 07:20 | NUR ---
SITTING UP IN BED RESTING COMFORTABLY. C/O OF PAIN IN LEFT KNEE AND REQUEST PAIN MEDS. WILL ADMINISTER MEDS AT NEXT TIME AVAILABLE WHICH WILL BE 0730. NO OTHER CONCERNS VOICED. CALL LIGHT IN REACH. WILL CONTINUE TO MONITOR
[2017-06-22 07:54] VITALS: BP 103/59
--- NOTE | 2017-06-22 08:35 | NUR ---
IN BATHROOM.SBA NOTED.DENIES NEEDS.
--- NOTE | 2017-06-22 09:24 | NUR ---
ADMINISTERED MORNING MEDS WITHOUT DIFFICULTY. OFFERS NO COMPLAINTS. OT IN ROOM WITH PT. WILL CONTINUE TO MONITOR.
[2017-06-22 09:34] VITALS: BMI 22.0
--- NOTE | 2017-06-22 13:02 | NUR ---
SITTING UP IN BED VISITING WITH SISTER. OFFERS NO COMPLAINTS. WILL CONTINUE TO MONITOR CALL LIGHT IN REACH
--- NOTE | 2017-06-22 16:43 | NUR ---
C/O OF PAIN RIGHT KNEE 9/10 THROBBING. OFFERS NO OTHER COMPLAINTS. CALL LIGHT IN REACH. WILL CONTINUE TO MONITOR
--- NOTE | 2017-06-22 19:55 | NUR ---
PT. IN BED WITH HOB UP FOR COMFORT AND IS WATCHING TV. ASSESSMENT COMPLETED. NO VOICED NEEDS AT THIS TIME AND HER CALL LIGHT IS WITHIN REACH.
[2017-06-22 20:30] VITALS: BP 113/66
--- NOTE | 2017-06-22 23:01 | NUR ---
PT. IN BED WITH HOB UP FOR COMFORT WITH EYES CLOSED AND RESP. DEEP AND EVEN. CALL LIGHT WITHIN REACH.
--- NOTE | 2017-06-23 03:00 | NUR ---
PT. IN BED WITH HOB UP FOR COMFORT. EYES CLOSED AND RESP. EVEN. CALL LIGHT WITHIN REACH.
--- NOTE | 2017-06-23 07:25 | NUR ---
ASSISTED TO RESTROOM AND BACK TO BED WITH STANDBY ASSIST. OFFERS NO COMPLAINTS AND DENIES PAIN. NO S/SX OF DISTRESS. CALL LIGHT IN REACH. WILL CONTINUE TO MONITOR
[2017-06-23 08:29] VITALS: BP 113/61
--- NOTE | 2017-06-23 09:50 | NUR ---
ADMINISTERED MORNING MEDS C/O PAIN IN RIGHT KNEE 07/17. PERCOCET ADMINISTERED PER PT REQUEST. NO OTHER CONCERNS VOICED. CALL LIGHT IN REACH.
--- NOTE | 2017-06-23 11:20 | NUR ---
POSITIONED RTLE UP ON PILLOW.CL IN REACH.
--- NOTE | 2017-06-23 12:22 | NUR ---
SITTING UP IN BED EATING LUNCH. OFFERS NO COMPLAINTS. CALL LIGHT IN REACH. WILL CONTINUE TO MONITOR
--- NOTE | 2017-06-23 13:27 | NUR ---
C/O INCREASED PAIN IN RIGHT KNEE, THUY INFORMED EARLIER THAT PT STATED THAT PAIN WAS DIFFERENT TODAY WHILE IN THERAPY. ICE AND HEAT WAS USED AND PT SEEMED TO GET MINIMUM RELIEF. ORDERED 2 VIEW XR OF RIGHT KNEE TO ENSURE NO CHANGES HAVE OCCURRED. WILL CONSULT WITH DR. ALDRICH IF INCREASED PAIN CONTINUES. ADMINISTERED PERCOCET 10MG PER PT REQUEST. WILL CONTINUE TO MONITOR
--- NOTE | 2017-06-23 14:09 | NUR ---
LYING IN BED C/O OF PAIN RIGHT KNEE 8/10 THROBBING, SOME SWELLING AND WARM TO THE TOUCH. XR HAS BEEN PERFORMED. LEGS ELEVATED AND ICE APPLIED TO RIGHT KNEE. WILL CONTINUE TO MONITOR. CALL LIGHT IN REACH
--- NOTE | 2017-06-23 15:47 | NUR ---
SITTING UP IN BED RESTING COMFORTABLY. INFORMED PT OF MIDLINE DRESSING CHANGE PT VERBALLY CONSENTED TO DRESSING CHANGE. REMOVED OLD DRESSING. CLEANED AREA NO REDNESS OR SWELLING AT INSERTION SITE. APPLIED STERILE DRESSING. PT TOLERATED WELL. CALL LIGHT IN REACH. WILL CONTINUE TO MONITOR
--- NOTE | 2017-06-23 17:17 | NUR ---
C/O RIGHT KNEE PAIN 8/10 THROBBING ADMINISTERED PERCOCET 10MG PER PT REQUEST. NO OTHER CONCERNS VOICED. CALL LIGHT IN REACH. WILL CONTINUE TO MONITOR
--- NOTE | 2017-06-23 19:10 | NUR ---
PT. IN BED WITH HOB UP FOR COMFORT. ASSISTED PT. TO BR. NO OTHER VOICED NEEDS. PT. INSTRUCTED TO PULL EMERGENCY CORD WHEN FINISHED. PT. ACKNOWLEDGED UNDERSTANDING.
--- NOTE | 2017-06-23 19:30 | NUR ---
REST IN BED AND WATCH TV.
[2017-06-24 00:12] VITALS: BP 108/62
--- NOTE | 2017-06-24 02:20 | NUR ---
ASSISTED PT TO BATHROOM AND BACK TO BED.
--- NOTE | 2017-06-24 03:14 | NUR ---
REST IN BED, EYE CLOSE, HARRIS LIGHT WITHIN REACH.
[2017-06-24 07:23] LABS: BASOPHILS 0.3 % (0-2); EOSINOPHILS 2.7 % (0-7); HEMATOCRIT 29.9 % (36.0-48.0); HEMOGLOBIN 9.9 g/dL (12-16); IMMATURE GRANULOCYTES 0.1 % (0-5); LYMPHOCYTES 24.6 % (15-50); MCH 30.2 pg (26.0-34.0); MCHC 33.1 g/dL (31.0-37.0); MCV 91.2 fL (80.0-100.0); MEAN PLATELET VOLUME 10.6 fL (7.4-10.4); MONOCYTES 10.1 % (2-11); NEUTROPHILS 62.2 % (40-80); PLATELET COUNT 403 10x3/uL (130-400); RBC 3.28 10x6/uL (4.00-5.40); RDW 12.8 % (11.5-14.5); WBC 8.6 10x3/uL (4.8-10.8)
[2017-06-24 07:31] LABS: CALC OSMOLALITY 274 mosm/kg (275-300); CALCIUM 8.9 mg/dL (8.5-10.1); CARBON DIOXIDE 27.7 mmol/L (21.0-32.0); CHLORIDE - SERUM 105 mmol/L (98-107); CREATININE - SERUM 0.5 mg/dL (0.6-1.3); GLUCOSE 99 mg/dL (74-106); POTASSIUM - SERUM 4.3 mmol/L (3.5-5.1); SODIUM 138 mmol/L (136-145); UREA NITROGEN 9 mg/dL (7-18); eGFR NON AFRICAN AMERICAN > 90 mL/min (90-120)
[2017-06-24 08:00] VITALS: BP 111/61
--- NOTE | 2017-06-24 08:10 | NUR ---
SITTING UP IN BED.BREAKFAST TRAY GIVEN.
--- NOTE | 2017-06-24 08:15 | NUR ---
PT RESTING IN BED WITH EYES OPEN CALL LIGHT IN REACH NO PROBLEMS WILL MONITER
--- NOTE | 2017-06-24 18:04 | NUR ---
PT RESTING IN BED WITH EYES OPEN CALL LIGHT IN REACH WILL MONITER
--- NOTE | 2017-06-24 19:20 | NUR ---
REST IN BED AND WATCH TV.
[2017-06-24 23:51] VITALS: BP 104/48
--- NOTE | 2017-06-25 02:35 | NUR ---
ASSISTED PT TO BATHROOM AND BACK TO BED.
--- NOTE | 2017-06-25 04:17 | NUR ---
REST IN BED, EYE CLOSE, CALL LIGHT IN REACH.
--- NOTE | 2017-06-25 07:34 | NUR ---
PT RESTING IN BED WITH EYES OPEN CALL LIGHT IN REACH NO PROBLEMS WILL MONITER
[2017-06-25 08:00] VITALS: BP 101/61
--- NOTE | 2017-06-25 16:50 | NUR ---
PT RESTING IN BED WITH EYES OPEN CALL LIGHT IN REACH NO PROBLEMS WILL MONITER
--- NOTE | 2017-06-25 18:21 | NUR ---
JUST FINISHED SUPPER. DENIES NEEDS. CALL LIGHT IN REACH
--- NOTE | 2017-06-25 19:30 | NUR ---
REST IN BED AND WATCH TV.
--- NOTE | 2017-06-25 22:19 | NUR ---
REST IN BED AND WATCH TV.
[2017-06-25 23:08] VITALS: BP 110/65
--- NOTE | 2017-06-26 00:15 | NUR ---
ASSISTED PT TO BATHROOM AND BACK TO BED.
--- NOTE | 2017-06-26 02:20 | NUR ---
REST IN BED, EYE CLOSE, CALL LIGHT IN REACH.
--- NOTE | 2017-06-26 03:55 | NUR ---
PT REQ AND REC'D PRN PAIN MEDICATION AT THIS TIME FOR 9/10 PAIN TO RT LEG. WCTM.
--- NOTE | 2017-06-26 07:40 | NUR ---
PT IN BED WITH EYES CLOSED AND CHEST RISING. EASILY AROUSED TO VERBAL STIMULI. NO COMPLAINTS OF PAIN NOTED. NO SIGN/SYMPTOMS OF DISTRESS NOTED. N/C AT 2LPM. NO CONCERNS NOTED. CALL LIGHT IN REACH.
[2017-06-26 08:04] VITALS: BP 107/66
--- NOTE | 2017-06-26 12:03 | NUR ---
PT IN BED WITH EYES OPEN LYING ON LEFT SIDE TO RELEIVE PRESSURE WATCHING TV. NO CONCERNS NOTED AT THIS TIME. CALL LIGHT IN REACH.
--- NOTE | 2017-06-26 18:09 | NUR ---
SITTING UP EATING SUPPER. DENIES NEEDS. CALL LIGHT IN REACH
--- NOTE | 2017-06-26 18:21 | NUR ---
PT IN BED WITH EYES OPEN WATCHING TV. NO SIGN/SYMPTOMS OF DISTRESS NOTED. CALL LIGHT IN REACH.
--- NOTE | 2017-06-26 19:35 | NUR ---
REST IN BED AND WATCH TV.
[2017-06-26 22:42] VITALS: BP 114/58
--- NOTE | 2017-06-26 22:50 | NUR ---
ASSISTED PT TO BATHROOM AND BACK TO BED.
--- NOTE | 2017-06-27 02:44 | NUR ---
PT REQ AND REC'D PRN PAIN MEDICATION AFTER BEING ASSISTED TO BR. PT BACK IN BED. BED LOW. CL IN REACH. WCTM.
[2017-06-27 05:51] LABS: BASOPHILS 0.3 % (0-2); EOSINOPHILS 1.6 % (0-7); HEMATOCRIT 32.5 % (36.0-48.0); HEMOGLOBIN 10.4 g/dL (12-16); IMMATURE GRANULOCYTES 0.3 % (0-5); LYMPHOCYTES 18.6 % (15-50); MCH 29.3 pg (26.0-34.0); MCV 91.5 fL (80.0-100.0); MONOCYTES 8.1 % (2-11); NEUTROPHILS 71.1 % (40-80); RBC 3.55 10x6/uL (4.00-5.40); RDW 12.8 % (11.5-14.5); WBC 9.9 10x3/uL (4.8-10.8)
[2017-06-27 05:52] LABS: PLATELET COUNT 580 10x3/uL (130-400)
[2017-06-27 06:01] LABS: CALC OSMOLALITY 269 mosm/kg (275-300); CALCIUM 9.6 mg/dL (8.5-10.1); CARBON DIOXIDE 30.6 mmol/L (21.0-32.0); CHLORIDE - SERUM 101 mmol/L (98-107); CREATININE - SERUM 0.6 mg/dL (0.6-1.3); GLUCOSE 109 mg/dL (74-106); POTASSIUM - SERUM 4.1 mmol/L (3.5-5.1); SODIUM 135 mmol/L (136-145); UREA NITROGEN 9 mg/dL (7-18); eGFR NON AFRICAN AMERICAN > 90 mL/min (90-120)
--- NOTE | 2017-06-27 07:42 | NUR ---
PRN PAIN MEDICATION GIVEN FOR RIGHT KNEE PAIN. PRN ZOFRAN GIVEN FOR NAUSEA PER PATIENT REQUEST
--- NOTE | 2017-06-27 08:17 | NUR ---
SITTING UP EATING BREAKFAST. DENIES NEEDS. CALL LIGHT IN REACH
--- NOTE | 2017-06-27 09:52 | NUR ---
PATIENT AT SINK IN ROOM. BRUSHING TEETH. STATES RELIEF FRO PRN PAIN MEDICATIONA DN PRN ZOFRAN FOR NAUSEA.
[2017-06-27 09:56] VITALS: BP 117/62
--- NOTE | 2017-06-27 13:16 | NUR ---
PRN PAIN MEDICATION GIVEN FOR GENERALIZED ALL OVER PAIN/DISC
--- NOTE | 2017-06-27 13:20 | NUR ---
PATIENT IN BATHROOM AND HAD A BOWEL MOVEMENT. STATES SHE FEELS LIKE SHE IS GOING TO PASS OUT. VITAL SIGNS TAKEN. P 90, R 18, B/P 141/60, PO100 RA. PATIENT WAS IN OCCUPATIONAL THERAPY ET STATED SHE DOES NOT WANT TO GO BACK. HELPED BACK IN BED.
--- NOTE | 2017-06-27 13:35 | NUR ---
DR. GRAVES OFFICE CALLED DUE TO PATIENT STATES SHE HAS BEEN ON KLONAPIN 2MG AM AND 2MG HS. PATIENT IS NOT ON IT AT THIS TIME AND WOULD LIKE TO HAVE SINCE SHE HAD BEEN ON IT OF 16 TO 17 YEARS.
--- NOTE | 2017-06-27 14:52 | NUR ---
DR. GRAVES NURSE, DINO CALLED BACK AND STATED THAT PATIENT HAS BEEN ON KLONOPIN FOR YEARS. STATED THAT DR. GRAF DID NOT KNOW WHY IT WAS STOPED. DR Kiera ALDRICH CALLED IN REGARDS TO THIS MEDICATION. NEW ORDERS GIVEN TO RESTART KLONOPIN.
--- NOTE | 2017-06-27 16:29 | NUR ---
PATIENT IS A STANDBY ASST TO THE BATHROOM.
--- NOTE | 2017-06-27 19:40 | NUR ---
PT. LYING IN BED WITH HOB UP FOR COMFORT AND WATCHING TV. ASSESSMENT COMPLETED. NO VOICED NEEDS AT THIS TIME AND HER CALL LIGHT IS WITHIN REACH.
[2017-06-27 19:50] VITALS: BP 130/56
--- NOTE | 2017-06-27 23:11 | NUR ---
PT IN BED WITH HOB UP FOR COMFORT WITH EYES CLOSED AND RESP. EVEN. CALL LIGHT WITHIN REACH.
--- NOTE | 2017-06-27 23:12 | NUR ---
LEFT OUT DOCUMENTATION RE: PT'S RUE MIDLINE. DRESSING C/D/I WITH CLAMP CLOSED AND ORANGE CAP ON END OF LINE. BIO DISK IN PLACE AND LINE FLUSHES EASILY.
--- NOTE | 2017-06-28 03:09 | NUR ---
PT. IN BED WITH HOB UP FOR COMFORT. EYES CLOSED AND RESP. DEEP AND EVEN. CALL LIGHT WITHIN REACH.
--- NOTE | 2017-06-28 07:20 | NUR ---
LYING IN BED EYES CLOSED RESTING. APPROPRIATE RISE AND FALL OF CHEST. NO S/SX OF DISTRESS. CALL LIGHT IN REACH. WILL CONTINUE TO MONITOR
[2017-06-28 07:54] VITALS: BP 122/59
--- NOTE | 2017-06-28 08:25 | NUR ---
RESTING QUIETLY IN BED.CL IN REACH.
--- NOTE | 2017-06-28 09:19 | NUR ---
ADMINISTERED MORNING MEDS WITHOUT DIFFICULTY. PT STATED "I'M NOT WORRIED ABOUT GETTING ALL MY OTHER MEDS LONG I GET MY KLONOPIN AND PAIN MEDS, I JUST HAVE TO HAVE THOSE." ASKED PT WHY SHE WASN'T CONCERNED WITH THE OTHER MEDS BUT SHE WOULD NOT ELABORATE ON THE SUBJECT. ALL MEDS WERE GIVEN. PT SITTING UP EATING BREAKFAST AND LOOKING OUTSIDE. NO S/SX OF DISTRESS. CALL LIGHT IN REACH
[2017-06-28 10:45] VITALS: Ht 172.7 cm; Wt 65.8 kg
--- NOTE | 2017-06-28 12:36 | NUR ---
SITTING UP IN BED EATING LUNCH. OFFERS NO COMPLAINTS. CALL LIGHT IN REACH. WILL CONTINUE TO MONITOR
--- NOTE | 2017-06-28 12:50 | NUR ---
REMOVED SURGICAL DRESSING TO RIGHT KNEE PER ORDER. DRESSING DATED 06/21/17, MINIMAL BLOOD TINGED DRAINAGE. INCISION SITE WITHOUT ANY REDNESS, MINIMAL SWELLING, AND NO DRAINAGE NOTED. CHRISTINE INTACT. CLEANED INCISIONAL AREA WITH WOUND CLEANSER AND LEFT OPEN TO AIR.
[2017-06-28 19:31] VITALS: BP 147/65
--- NOTE | 2017-06-28 19:35 | NUR ---
PT. IN BED WITH HOB UP FOR COMFORT WATCHING TV. REINSTRUCTED PT. ON HER SAFETY WHILE SHE IS HERE IN THE REHAB UNIT AND THAT SHE IS TO USE HER CALL LIGHT FOR ANY TRANSFERS OUT OF HER BED. ALSO INFORMED PT. THAT HER BED HAS A TAM ALARM AND IT WILL ALARM IF SHE TRIES TO GET OOB WITHOUT ASSISTANCE AND THAT THIS IS ALL FOR HER SAFETY. PT. STATED SHE UNDERSTOOD. I THEN REINFORCED THE TEACHING THAT WHEN SHE IS FINISHED USING THE TOILET SHE IS TO PULL THE STRING FOR ASSISTANCE AND NOT TRY TO GET UP FROM THE TOILET AND GET INTO THE W/C WITHOUT ASSISTANCE. PT. AGAIN STATED SHE UNDERSTOOD. ASSISTED PT. TO THE BR FOR HER TO URINATE. WHILE I WAS STRAIGHTENING UP HER BED I HEARD THE TOILET FLUSH AND BEFORE I COULD GET INTO THE BR PT. WAS STANDING UP AND PULLING THE W/C TOWARDS HER. INFORMED PT. TO PLEASE NOT TRY AND GET THE W/C BUT USE THE EMERGENCY PULL CORD FOR ASSISTANCE I HAD EXPLAINED TO HER EARLIER. PT. STATED SHE UNDERSTOOD, BUT SHE HAD JUST FORGOT. ASSISTED PT. BACK TO BED AND POSITIONED TO COMFORT. ASSESSMENT COMPLETED. TAM ALARM TURNED ON AND PT. HAS HER CALL LIGHT WITHIN REACH.
--- NOTE | 2017-06-28 23:07 | NUR ---
PT. IN BED LYING ON HER LEFT SIDE. EYES CLOSED AND RESP. DEEP AND EVEN. CALL LIGHT WITHIN REACH.
--- NOTE | 2017-06-29 03:02 | NUR ---
PT. IN BED WITH HOB UP FOR COMFORT AND LYING ON HER LEFT SIDE. EYES CLOSED AND RESP. DEEP AND EVEN. CALL LIGHT WITHIN REACH.
[2017-06-29 07:42] LABS: BASOPHILS 0.4 % (0-2); EOSINOPHILS 1.5 % (0-7); HEMATOCRIT 32.5 % (36.0-48.0); HEMOGLOBIN 10.4 g/dL (12-16); IMMATURE GRANULOCYTES 0.4 % (0-5); LYMPHOCYTES 19.6 % (15-50); MCH 29.6 pg (26.0-34.0); MCV 92.6 fL (80.0-100.0); MEAN PLATELET VOLUME 10.1 fL (7.4-10.4); MONOCYTES 8.3 % (2-11); NEUTROPHILS 69.8 % (40-80); PLATELET COUNT 658 10x3/uL (130-400); RBC 3.51 10x6/uL (4.00-5.40); RDW 13.1 % (11.5-14.5); WBC 11.2 10x3/uL (4.8-10.8)
--- NOTE | 2017-06-29 07:42 | NUR ---
PT RESTING IN BED WITH EYES OPEN CALL LIGHT IN REACH NO PROBLEMS WILL MONITER
[2017-06-29 07:52] LABS: CALC OSMOLALITY 273 mosm/kg (275-300); CALCIUM 9.4 mg/dL (8.5-10.1); CARBON DIOXIDE 29.9 mmol/L (21.0-32.0); CHLORIDE - SERUM 100 mmol/L (98-107); CREATININE - SERUM 0.7 mg/dL (0.6-1.3); GLUCOSE 113 mg/dL (74-106); POTASSIUM - SERUM 4.1 mmol/L (3.5-5.1); SODIUM 137 mmol/L (136-145); UREA NITROGEN 9 mg/dL (7-18); eGFR NON AFRICAN AMERICAN 89 mL/min (90-120)
[2017-06-29 08:23] VITALS: BP 105/58
--- NOTE | 2017-06-29 11:43 | NUR ---
ACTIVE IN THERAPY.DENIES NEEDS.
--- NOTE | 2017-06-29 13:26 | NUR ---
PT RESTING IN BED WITH EYES OPEN CALL LIGHT IN REACH NO PROBLEMS WILL MONITER
--- NOTE | 2017-06-29 14:05 | RHP ---
PATIENT: FABIAN CORTEZ MEDICAL RECORD: [id number] ACCOUNT: [id number] LOCATION:[facility]1112 : 54 ADMISSION DATE: 06/21/17 REHABILITATION HISTORY AND PHYSICAL EXAMINATION POST ADMISSION PHYSICIAN EXAMINATION Post-admission Physical Examination and History and Physical DATE OF ADMISSION: 06/21/2017 ADMITTING DIAGNOSIS: Chronic pain in her right knee secondary to degenerative arthritis resulting in a right total knee replacement. HISTORY OF PRESENT ILLNESS: The patient is a 67-year-old female patient who presents to the inpatient rehab after having a total knee replacement. She had chronic pain in her knee secondary to severe degenerative arthritis. She was admitted to the acute hospital after right knee gave way on 06/13/2017. She was no longer able to bear weight. She noticed several years of pain in this knee. She was evaluated by the orthopedic surgeon and underwent a right total knee on 06/16/2017, noted postop complications of blood loss anemia requiring transfusion, hypotension and pain. She is currently receiving both IV and p.o. pain medications. She has decreased mobility, decreased range of motion, gait dysfunction, soreness, stiffness, weakness, sleep disturbance and anxiety due to the recent pain with her knee. She lives at home with her sister and was completely independent with ADLs and mobility. She is currently set up for max assist with ADLs and moderate assist to max assist for mobility. She plans to return home and get back with her sister and return to her prior level of functioning or hopefully better. COMORBIDITIES: Include blood loss anemia, hypotension, pain, degenerative arthritis, anxiety, neuropathy, alcohol dependence in the past, irritable bowel syndrome, diverticulosis and self-care deficit. PAST MEDICAL HISTORY: Significant for neuropathy, anxiety, irritable bowel syndrome, diverticulosis, alcohol abuse, insomnia and small bowel obstruction. PAST SURGICAL HISTORY: Includes gallbladder surgery, hysterectomy, neck surgery and back surgery. ALLERGIES: TALWIN, TETRACYCLINE, AND TRAMADOL. CURRENT MEDICATIONS: Include thiamine daily. She is on Paxil 25 mg daily, Protonix 40 mg daily, folic acid 1 mg daily, Seroquel 50 mg at bedtime, Percocet 1 tab q.4 hours p.r.n., Zofran 4 mg q.4 hours as needed, Eliquis 2.5 mg b.i.d., and polyethylene glycol 17 grams in 8 ounces of water daily. HABITS: No alcohol or tobacco use. FAMILY HISTORY: Noncontributory. SOCIAL HISTORY: The patient hopes to return back home with her sister, get back to her prior level of functioning and hopefully be able to get around. REVIEW OF SYSTEMS: GENERAL: Does complain of weakness and fatigue. HISTORY AND PHYSICAL [id number] ZEEFABIAN MCCONNELL HEENT: Denies cold, cough, or congestion. CARDIOVASCULAR: Denies chest pain. LUNGS: Denies any shortness of breath. PHYSICAL EXAMINATION: VITAL SIGNS: Stable, afebrile. GENERAL: Well-developed female in no acute distress, alert upon exam. HEENT: Normocephalic and atraumatic. Mucosa moist. NECK: Supple, with no lymphadenopathy. LUNGS: Clear at this time. HEART: Regular rate and rhythm. ABDOMEN: Benign. EXTREMITIES: Consistent with knee replacement. NEUROLOGIC: Intact. LABORATORY DATA: White count 6.9, H&H 10 and 30 and platelet count was noted to be 325. Her sodium is 140, potassium 3.0, BUN and creatinine of 9 and 0.7, blood sugar is noted to be 142. ASSESSMENT: This is a 67-year-old female patient who is status post total knee replacement secondary to severe degenerative arthritis and pain. The patient has potential to make improvement. We instituted the following multidisciplinary therapies including, but not limited to physical, occupational, respiratory, speech, nutritional services, prosthetics and orthotics. Given her complex condition and risk for more complications, rehabilitation services cannot be provided at a low level of care such as a longterm facility. PLAN: 1. Admit to [facility] rehab for intensive inpatient therapy to include the following disciplines: A. Physical therapy to improve gait, all transfer skills and bed mobility to a modified independent level. B. Occupational therapy to improve activities of daily living to a modified independent level. C. Case management to assist with discharge planning and placement options. D. Nutrition to assist with nutritional needs. E. Rehabilitation nursing to assist with monitoring the patient's underlying medical conditions and to assist with any type of bowel or bladder management. 2. The patient's current medication and medical care will be continued. 3. The patient will be placed on standard fall precautions. 4. The patient's estimated length of stay is approximately 7-10 days. 5. Discuss this patient during care team staff meeting this week. TRANSINT:[id number] Voice Confirmation ID: [id number] DOCUMENT ID: [id number] GUZMAN notes whether there has been none or any medical/functional change since admission: - GUZMAN attests patient continues to be appropriate for IRF: - HISTORY AND PHYSICAL [id number] FABIAN CORTEZ SCOTT MD at 1405 CC: [id number] DICTATION DATE: 06/22/17 0833 ASSEMBLY LINE INSPECTOR: 06/22/17 1047 ADM IN [facility] [address] [id number]
--- NOTE | 2017-06-29 15:35 | NUR ---
PATIENT ADMITTED TO REHAB FROM ACUTE FLOOR, HER PCP IS DR. GRAF, SHE USES [facility] [address] FOR HER PHARMACY. DME AT HOME WALKER, SHOWER CHAIRCANE AND ELEVATED TOILET SEAT.WILL CONTINUE TO FOLLOW WITH PATIENT.
--- NOTE | 2017-06-29 17:19 | NUR ---
PT RESTING IN BED WITH EYES OPEN CALL LIGHT IN REACH WILL MONITER
--- NOTE | 2017-06-29 19:29 | NUR ---
RECIEVED UP 9IN BED WITH EYES OPEN AND TV ON. PLEASANT AND TALKATIVE. DENIES ANY PAIN AT THIS TIME. CALL LIGHT AND OVERBED TABLE IN REACH. REQUESTED TO GO TO THE B/R. REQUIRED STANDY BY ASSIST. ABLE TO TRANSFER INDEPENDENTLY.
[2017-06-29 19:52] VITALS: BP 111/63
--- NOTE | 2017-06-29 21:28 | NUR ---
LYING IN BED WITH EYES CLOSED. NO S/S OF DISTRESS OBSERVED. HOB ELEVATED AND CALL LIGHT IN REACH.
--- NOTE | 2017-06-30 01:10 | NUR ---
RESTING IN BED WITH EYES CLOSED. NO S/S OF DISTRESS OBSERVED. HOB ELEVATED. CALL LIGHT AND OVERBED TABLE IN REACH.
--- NOTE | 2017-06-30 04:44 | NUR ---
ASSISTED TO TOILET AND BACK TO BED. REQUIRES STAND BY ASSIST. PLEASANT AND TALKATIVE WITH NO C/O VOICED. CALL LIGHT AND OVERBED TABLE IN REACH.
--- NOTE | 2017-06-30 08:59 | NUR ---
PT AM MEDS ADMINISTERED. PT DENIES NEEDS AT THIS TIME. BED LOW. CLIN REACH. WCTM.
[2017-06-30 09:04] VITALS: BP 111/53
--- NOTE | 2017-06-30 15:28 | NUR ---
PT REQ AND REC'D PRN PAIN MEDICATION. PT HAS JUST RETURNED FROM THERAPY AND IS RESTING IN BED. BED LOW. CL IN REACH.
--- NOTE | 2017-06-30 19:22 | NUR ---
UP IN BED WITH EYES CLOSED. NO S/S OF DISTRESS OBSERVED. CALL LIGHT AND OVERBED TABLE IN REACH.
[2017-06-30 19:37] VITALS: BP 101/59
--- NOTE | 2017-06-30 20:17 | NUR ---
UP IN BED WITH EYES OPEN. ASSISTED TO B/R. REQUIURES SUPERVISION ONLY. TRANSFERS INDEPENDENTLY. NO C/O VOICED. CALL LIGHT IN REACH.
--- NOTE | 2017-06-30 22:23 | NUR ---
ASSISTED TO TOILED WITH SUPERVISION ONLY. PLWASANT AND TALKATIVE. NO C/O VOICED. ASSISTED BACK TO BED.
--- NOTE | 2017-07-01 02:41 | NUR ---
RESTING IN BED WITH EYES CLOSED. LYING ON BACK. CALL LIGHT IN REACH NO S/S OF DISTRESS OBSERVED.
[2017-07-01 06:19] LABS: HEMATOCRIT 28.9 % (36.0-48.0); HEMOGLOBIN 9.6 g/dL (12-16); LYMPHOCYTES 28.5 % (15-50); MCH 29.9 pg (26.0-34.0); MCHC 33.2 g/dL (31.0-37.0); MEAN PLATELET VOLUME 9.8 fL (7.4-10.4); NEUTROPHILS 59.6 % (40-80); PLATELET COUNT 671 10x3/uL (130-400); RBC 3.21 10x6/uL (4.00-5.40); RDW 12.5 % (11.5-14.5); WBC 9.4 10x3/uL (4.8-10.8)
[2017-07-01 06:20] LABS: CALC OSMOLALITY 272 mosm/kg (275-300); CALCIUM 9.6 mg/dL (8.5-10.1); CARBON DIOXIDE 28.6 mmol/L (21.0-32.0); CHLORIDE - SERUM 102 mmol/L (98-107); CREATININE - SERUM 0.7 mg/dL (0.6-1.3); GLUCOSE 111 mg/dL (74-106); POTASSIUM - SERUM 4.2 mmol/L (3.5-5.1); SODIUM 136 mmol/L (136-145); eGFR NON AFRICAN AMERICAN 89 mL/min (90-120)
[2017-07-01 06:21] LABS: UREA NITROGEN 13 mg/dL (7-18)
[2017-07-01] MEDS ORDERED: KLONOPIN1 MG PO (08:24)
[2017-07-01] MEDS ORDERED: PERCOCET 10/3251 TA1 PO (08:25)
[2017-07-01 09:08] VITALS: BP 108/57
--- NOTE | 2017-07-01 09:26 | NUR ---
PATIENT DISCHRGING HOME TODAY WITH FAMILY. [facility] WILL FOLLOW WITH PATIENT AT HOME. [facility] WILL DELIVER A CPM TO THE HOME. DR. GRAF 07/08/17 @ 3:15, DR. THOMAS 07/13/17 @ 10:00. PATIENT CHOICE FORM FOR HOME HEALTH AND [facility] FORM SIGNED, EXPLAINED AND FILED IN CHART.FAMILY TO CALL [facility] TO INFORM THEM WHEN TO DELIVER CPM. ORDERS HAVE BEEN FAXED WITH CONFORMATION RECIEVED
--- NOTE | 2017-07-01 10:06 | NUR ---
PT DISCHARGE INSTRUCTIONS SIGNED. MIDLINE CATHER DC'D AND WAS 13 CM IN LENGTH. PT DENIES NEEDS AT THIS TIME. AWAITNG RIDE HOME.
--- NOTE | 2017-07-01 10:15 | NUR ---
27 CHRISTINE TO PT RT KNEE DC'D. PT KNEE STERI-STRIPPED AND GLUED. PT FRIEND HERE TO TAKE HER HOME. PT TAKEN TO VEHICLE VIA WC. PT SEATBELT IN PLACE. MEDS TO BE CALLED IN TO PHARMACY.
--- NOTE | 2017-07-01 11:21 | NUR ---
FACE TO FACE FAXED BACK TO [facility] FOR CPM WITH CONFORMATION RECIEVED, .
== END 2017-07-01 10:53 | disposition home health service (06) | DRG 560 ==
LOC: D.REHAB 16:49
PROVIDERS: ADMIT Emergency Medicine
DX: Z47.1 Aftercare following joint replacement surgery (principal); D62 Acute posthemorrhagic anemia; Z96.651 Presence of right artificial knee joint; M17.11 Unilateral primary osteoarthritis, right knee; I95.9 Hypotension, unspecified; F41.9 Anxiety disorder, unspecified; K58.9 Irritable bowel syndrome, unspecified; K57.90 Diverticulosis of intestine, part unspecified, without perforation or abscess without bleeding; R53.1 Weakness; R26.9 Unspecified abnormalities of gait and mobility

== ENCOUNTER → 2017-07-21 13:29 | Outpatient (CLI) | payer MEDICARE ==
[2017-06-28 10:45] VITALS: BMI 22.0
== END | disposition home or self-care (01) ==
LOC: D.US 13:29
DX: R60.0 Localized edema (principal)

== ENCOUNTER 2017-07-21 17:51 | Emergency (ER) | payer MEDICARE ==
[2017-06-28 10:45] VITALS: BMI 22.0
[2017-07-21 20:46] LABS: BASOPHILS 0.2 % (0-2); EOSINOPHILS 1.9 % (0-7); HEMATOCRIT 35.1 % (36.0-48.0); IMMATURE GRANULOCYTES 0.1 % (0-5); LYMPHOCYTES 32.8 % (15-50); MCH 28.4 pg (26.0-34.0); MCHC 31.3 g/dL (31.0-37.0); MCV 90.7 fL (80.0-100.0); MONOCYTES 6.4 % (2-11); NEUTROPHILS 58.6 % (40-80); RBC 3.87 10x6/uL (4.00-5.40); RDW 14.3 % (11.5-14.5); WBC 8.7 10x3/uL (4.8-10.8)
[2017-07-21 20:47] LABS: PLATELET COUNT 332 10x3/uL (130-400)
[2017-07-21 20:56] LABS: INR 1.04 (0.85-1.17); PROTIME 13.5 SECONDS (11.6-15.0)
[2017-07-21 20:58] LABS: D-DIMER-QUANTITATIVE 3.21 ug/mLFEU (0.20-0.54)
[2017-07-21 21:01] LABS: ALBUMIN 3.2 g/dL (3.4-5.0); ALKALINE PHOSPHATASE 133 U/L (46-116); ALT (SGPT) 14 U/L (10-68); BILIRUBIN - TOTAL 0.27 mg/dL (0.2-1.3); CALC OSMOLALITY 278 mosm/kg (275-300); CALCIUM 9.3 mg/dL (8.5-10.1); CHLORIDE - SERUM 107 mmol/L (98-107); CREATININE - SERUM 0.7 mg/dL (0.6-1.3); GLUCOSE 84 mg/dL (74-106); POTASSIUM - SERUM 3.7 mmol/L (3.5-5.1); PROTEIN - SERUM 7.3 g/dL (6.4-8.2); SODIUM 141 mmol/L (136-145); UREA NITROGEN 11 mg/dL (7-18); eGFR NON AFRICAN AMERICAN 89 mL/min (90-120)
[2017-07-21 21:15] LABS: AMORPHOUS SEDIMENT <1+ /lpf (NONE SEEN); APPEARANCE CLEAR (CLEAR); BACTERIA MODERATE /hpf (NONE SEEN); BILIRUBIN NEGATIVE (NEGATIVE); COLOR YELLOW (YELLOW); EPITHELIAL CELLS 0-5 /hpf (0-5); GLUCOSE NEGATIVE (NEGATIVE); GRANULAR CAST RARE /lpf (NONE SEEN); KETONE NEGATIVE (NEGATIVE); LEUKOCYTE ESTERASE TRACE (NEGATIVE); NITRITE NEGATIVE (NEGATIVE); PROTEIN NEGATIVE (NEGATIVE); RED CELLS - URINE 0-5 /hpf (0-5); SPECIFIC GRAVITY 1.015 (1.005-1.020); UROBILINOGEN NORMAL (NORMAL); WHITE CELLS - URINE 0-5 /hpf (0-5)
[2017-07-21 21:21] LABS: UDS - AMPHET NEGATIVE QUAL (NEGATIVE); UDS - BARB NEGATIVE QUAL (NEGATIVE); UDS - BENZO POSITIVE QUAL (NEGATIVE); UDS - COCAINE NEGATIVE QUAL (NEGATIVE); UDS - METH NEGATIVE QUAL (NEGATIVE); UDS - OPIATE POSITIVE QUAL (NEGATIVE); UDS - PCP NEGATIVE QUAL (NEGATIVE); UDS - THC NEGATIVE QUAL (NEGATIVE)
== END 2017-07-22 01:43 | disposition home or self-care (01) ==
LOC: D.ER 17:51
PROVIDERS: Nurse Practitioner Family
DX: G89.18 Other acute postprocedural pain (principal); M25.461 Effusion, right knee

== ENCOUNTER 2017-10-30 12:56 | Emergency (ER) | payer MEDICARE ==
[2017-06-28 10:45] VITALS: BMI 22.0
[2017-10-30 15:13] LABS: BASOPHILS 0.3 % (0-2); EOSINOPHILS 1.2 % (0-7); HEMATOCRIT 47.4 % (36.0-48.0); HEMOGLOBIN 15.9 g/dL (12-16); IMMATURE GRANULOCYTES 0.2 % (0-5); LYMPHOCYTES 36.6 % (15-50); MCH 29.1 pg (26.0-34.0); MCHC 33.5 g/dL (31.0-37.0); MCV 86.7 fL (80.0-100.0); MEAN PLATELET VOLUME 12.5 fL (7.4-10.4); MONOCYTES 6.2 % (2-11); NEUTROPHILS 55.5 % (40-80); RBC 5.47 10x6/uL (4.00-5.40); RDW 13.6 % (11.5-14.5); WBC 5.8 10x3/uL (4.8-10.8)
[2017-10-30 15:15] LABS: PLATELET COUNT 187 10x3/uL (130-400)
[2017-10-30 15:17] LABS: APPEARANCE CLEAR (CLEAR); BILIRUBIN NEGATIVE (NEGATIVE); COLOR YELLOW (YELLOW); GLUCOSE NEGATIVE (NEGATIVE); KETONE LARGE mg/dL (NEGATIVE); NITRITE NEGATIVE (NEGATIVE); PROTEIN NEGATIVE (NEGATIVE); UROBILINOGEN NORMAL (NORMAL)
[2017-10-30 15:19] LABS: BACTERIA FEW /hpf (NONE SEEN); RED CELLS - URINE 0-5 /hpf (0-5); WHITE CELLS - URINE 0-5 /hpf (0-5)
[2017-10-30 15:23] LABS: ALBUMIN 4.1 g/dL (3.4-5.0); ALKALINE PHOSPHATASE 84 U/L (46-116); ALT (SGPT) 15 U/L (10-68); AMYLASE - SERUM 33 U/L (25-115); BILIRUBIN - TOTAL 0.86 mg/dL (0.2-1.3); CALC OSMOLALITY 276 mosm/kg (275-300); CALCIUM 10.3 mg/dL (8.5-10.1); CARBON DIOXIDE 24.2 mmol/L (21.0-32.0); CHLORIDE - SERUM 103 mmol/L (98-107); CREATININE - SERUM 0.7 mg/dL (0.6-1.3); GLUCOSE 82 mg/dL (74-106); LIPASE 99 U/L (73-393); POTASSIUM - SERUM 4.7 mmol/L (3.5-5.1); PROTEIN - SERUM 7.5 g/dL (6.4-8.2); SODIUM 140 mmol/L (136-145); UREA NITROGEN 10 mg/dL (7-18); eGFR NON AFRICAN AMERICAN 89 mL/min (90-120)
== END 2017-10-30 17:10 | disposition home or self-care (01) ==
LOC: D.ER 12:56
PROVIDERS: Emergency Medicine
DX: K52.9 Noninfective gastroenteritis and colitis, unspecified (principal); F41.9 Anxiety disorder, unspecified

== ENCOUNTER 2017-12-29 19:04 | Inpatient (IN) | payer MEDICARE ==
[~2017-12-29] VITALS: Ht 172.7 cm; Wt 57.3 kg
--- NOTE | ~2017-12-29 | PSY ---
PATIENT NAME:FABIAN CORTEZ MEDICAL RECORD: [id number] : 54 LOCATION:[facility] ADMISSION DATE: 12/29/17 ACCOUNT: [id number] PSYCHIATRIC EVALUATION DATE OF EVALUATION: 12/30/17 IDENTIFYING DATA: First snf admission for this 67-year-old white female. HISTORY OF PRESENT ILLNESS: This patient was admitted on transfer from [facility] Emergency Department due to suicidal ideation and plan. The patient stated she had a plan to either shoot herself with a BB gun, burnt herself with hot plate, or cut herself with a knife. The patient had been admitted to [facility] at the of this month. Subsequent to that, she was sent to [facility] for 7 days. She had been discharged on the from [facility] and then presented to our Emergency Department on the following day. The patient has a long past history of benzodiazepine over usage. She also exhibits considerable drug seeking. Her boyfriend who was interviewed separately by staff indicates that she has an alcohol problem, although the patient herself denies this. The patient denies other substance abuse. The primary concern of course is her suicidal ideation. The patient is admitted for stabilization and development of ongoing treatment plan. PAST MEDICAL HISTORY: Significant for alcoholism, diverticulosis, neuropathy, degenerative arthritis of her right knee, electrolyte disturbance, hyperlipidemia. FAMILY HISTORY: Apparently is noncontributory. SOCIAL HISTORY: The patient denies tobacco use. She is not . She has no children. She resides in [place], [place]. ALLERGIES: INCLUDE PENTAZOCINE AND TETRACYCLINE. MENTAL STATUS: On interview, the patient is restless and hyperalert. She mentions drugs frequently. Mood is anxious. Affect is shallow. Speech is somewhat rambling and slightly pressured. Content of thought is predominated by somatic complaints as well as recent suicidal ideation. The patient is oriented to person, place, and time. Remote, intermediate, and short-term recall are fair. Concentration poor. DIAGNOSTIC IMPRESSION: AXIS I: Major depressive disorder by history, polysubstance abuse. AXIS II: Deferred. AXIS III: History of diverticulitis, history of right knee replacement, irritable bowel syndrome, degenerative arthritis, electrolyte disturbance, hyperlipidemia. AXIS IV: Moderate. AXIS V: 35. PLAN: 1. The patient is admitted for further medical and psychiatric workup. 2. Antidepressant and anxiolytic medication as indicated. 3. Supportive therapy. TRANSINT:[id number] Voice Confirmation ID: [id number] DOCUMENT ID: [id number] AUSTYN HORNE III, MD at 1733 CC: [id number] DICTATION DATE: 12/30/17 1343 SOFTWARE ASSET MANAGEMENT ANALYST: 12/30/17 1401 ADM IN [id number] [place] [address]
--- NOTE | ~2017-12-29 | PN ---
PATIENT:FABIAN CORTEZ MEDICAL RECORD: [id number] LOCATION:[facility] ADMISSION DATE: 12/29/17 PROGRESS NOTE DATE OF SERVICE: 01/09/2018 SUBJECTIVE: No new complaint. OBJECTIVE: The patient has done very well over the weekend. She has not had any further suicidal ideation or statements. On exam today, the patient is pleasant and alert. She was informed that plans to discharge her tomorrow and she was in agreement with this. She was told that she will be following up with [facility] as well as a 12-step program. She was also reminded that she needs to secure primary care physician in order to have medication management. On exam, mood is euthymic. Affect is bland. Speech is fluent. Content of thought is negative for suicidal ideation or psychosis. Sensorium is clear. ASSESSMENT: No change in diagnoses. PLAN: 1. Continue current medications. 2. Anticipate discharge tomorrow. TRANSINT:[id number] Voice Confirmation ID: [id number] DOCUMENT ID: [id number] AUSTYN HORNE III, MD at 1903 CC: [id number] DICTATION DATE: 01/09/18 0910 DBA MANAGER: 01/09/18 1138 ADM IN [facility] [address] [place] [address]
--- NOTE | ~2017-12-29 | PN ---
PATIENT:FABIAN CORTEZ MEDICAL RECORD: [id number] LOCATION:[facility] ADMISSION DATE: 12/29/17 PROGRESS NOTE DATE OF SERVICE: 01/07/2018 SUBJECTIVE: The patient's case was discussed with staff. She has no new complaint. OBJECTIVE: The patient is in good behavioral control with limited insight about her condition. She generally tolerates her medicines well. ASSESSMENT: No change in diagnoses. PLAN: Supportive and educational interventions were made. I anticipate she can be transitioned out of the hospital soon as she has no psychotic symptoms and no thoughts of harming herself or others. She does need substance abuse treatment, but lacks a significant amount of insight about this. TRANSINT:[id number] Voice Confirmation ID: [id number] DOCUMENT ID: [id number] PAIGE MURPHY MD at 1355 CC: [id number] DICTATION DATE: 01/07/18 0834 UPPER LINING CEMENTER: 01/07/18 1201 ADM IN [id number] [place] [address]
--- NOTE | ~2017-12-29 | DS ---
PATIENT:FABIAN CORTEZ :54 MEDICAL RECORD: [id number] DISCHARGE SUMMARY ADMISSION DATE: 12/29/17 DISCHARGE DATE: 01/10/18 DATE OF ADMISSION: 12/29/2017. DATE OF DISCHARGE: 01/12/2018. HISTORY OF PRESENT ILLNESS: This was the first long-term admission for this 67-year-old white female. She had been admitted on transfer from a local Emergency Department. She was having suicidal ideation and threats. The patient has a past history of both drug and alcohol abuse and had recently been hospitalized at another facility. For further details, please see previously dictated history. COURSE IN THE HOSPITAL: The patient was seen in consultation by Dr. Awad. He noted the presence of irritable bowel syndrome and electrolyte disturbance, diverticulosis, and history of right knee replacement, also hyperlipidemia. COURSE IN THE HOSPITAL: The patient was managed very conservatively. She was placed on a combination of chlorpromazine 25 mg 3 times a day and hydroxyzine 50 mg t.i.d. The patient was also maintained on the nonpsychiatric medications, which included K-Dur, hyoscyamine folate, vitamin B12, vitamin D supplements, trazodone 150 mg at bedtime, and hydrochlorothiazide 12.5 mg daily. The patient did show some early drug seeking behavior, but as the hospitalization progressed this diminished altogether. By the time of discharge, the patient was agreeable to outpatient followup both through [facility] outpatient services in a 12-step program. FINAL DIAGNOSES: AXIS I: Major depressive disorder, polysubstance abuse. AXIS II: No diagnosis. AXIS III: History of diverticulitis, right knee replacement, irritable bowel syndrome, degenerative arthritis, and electrolyte disturbance. AXIS IV: Moderate. AXIS V: 50. PLAN: 1. The patient is discharged on current medication. 2. Diet and activities as tolerated. 3. Follow up through 12-step program at [facility] outpatient and primary care physician. TRANSINT:[id number] Voice Confirmation ID: [id number] DOCUMENT ID: [id number] DISCHARGE SUMMARY REPORT [id number] FABIAN CORTEZ OZZIE CAGE, AUSTYN Qureshi MD at 2033 CC: [id number] DICTATION DATE: 01/10/18 1059 MOMD TEACHER: 01/10/18 1615 DIS IN 01/10/18 [facility] [address] [address]
--- NOTE | ~2017-12-29 | PN ---
PATIENT:FABIAN CORTEZ MEDICAL RECORD: [id number] LOCATION:[facility] ADMISSION DATE: 12/29/17 PROGRESS NOTE DATE OF SERVICE: 01/06/2018 SUBJECTIVE: The patient's case was discussed with staff. She has no new complaint. OBJECTIVE: The patient is in good behavioral control. She complains of anxiety. ASSESSMENT: No change in diagnoses. PLAN: Current medicines and therapies have been reviewed and will be maintained. Long-term prognosis is guarded. TRANSINT:[id number] Voice Confirmation ID: [id number] DOCUMENT ID: [id number] PAIGE MURPHY MD at 1355 CC: [id number] DICTATION DATE: 01/06/18 1340 FARM EQUIPMENT ENGINEER: 01/06/182028 ADM IN [id number] [place] [address]
--- NOTE | ~2017-12-29 | PN ---
PATIENT:FABIAN CORTEZ MEDICAL RECORD: [id number] LOCATION:[facility] ADMISSION DATE: 12/29/17 PROGRESS NOTE DATE OF SERVICE: 12/31/2017 SUBJECTIVE: The patient continues to complain of nervousness. OBJECTIVE: The patient so far is tolerating current medication regimen. On exam, mood is slightly anxious. Affect is somewhat brittle. Speech is fluent. Content of thought focuses only on somatic concerns. Sensorium shows no change. ASSESSMENT: No change in diagnosis. PLAN: 1. Maintain current medication. 2. Continue supportive therapy. TRANSINT:[id number] Voice Confirmation ID: [id number] DOCUMENT ID: [id number] AUSTYN HORNE III, MD at 1124 CC: [id number] DICTATION DATE: 12/31/17 1147 PULVERIZER OPERATOR: 12/31/17 1201 ADM IN [id number] [place] [address]
--- NOTE | ~2017-12-29 | PN ---
PATIENT:FABIAN CORTEZ MEDICAL RECORD: [id number] LOCATION:[facility] ADMISSION DATE: 12/29/17 PROGRESS NOTE DATE OF SERVICE: 01/04/2018 SUBJECTIVE: No new complaint voiced to the examiner. OBJECTIVE: Staff reports the patient has been giving differing counts of herself and her current status to different people who interview her. She approached staff member thor dramatically stating that her anxiety was the worst that it had ever been and received p.r.n. Ativan. However, on interview with this examiner, the patient states she is feeling much better. She also acknowledges that she has had alcohol abuse problems and agrees to have substance abuse treatment when she leaves the hospital. This is in direct opposition to what she had stated to the staff members. At any rate, the patient's vital signs are stable and she is participating reasonably well. On exam, mood is euthymic. Affect is somewhat shallow. Speech tends to be somewhat rambling at times. Content of thought focuses on somatic concerns. Sensorium shows no change. ASSESSMENT: No change in diagnosis. PLAN: 1. Maintain current medications. 2. Continue supportive therapy. TRANSINT:[id number] Voice Confirmation ID: [id number] DOCUMENT ID: [id number] AUSTYN HORNE III, MD at 1035 CC: [id number] DICTATION DATE: 01/04/18 1131 BROILER CHEF OR COOK: 01/04/18 1231 ADM IN [id number] [place] [address]
--- NOTE | ~2017-12-29 | PN ---
PATIENT:FABIAN CORTEZ MEDICAL RECORD: [id number] LOCATION:IngridNadineRICHARD Herrera112 ADMISSION DATE: 12/29/17 PROGRESS NOTE DATE OF SERVICE: 01/02/2018 SUBJECTIVE: No new complaint. OBJECTIVE: The patient has shown episodic agitation. She does complain of nervousness, but otherwise no new complaint. On exam, mood is pleasant. Affect is fairly bland. Speech is fluent. Content of thought focuses on somatic concerns. Sensorium shows no change. ASSESSMENT: No change in diagnosis. PLAN: 1. Add chlorpromazine 25 mg t.i.d. 2. Continue other medications. 3. Continue supportive therapy. TRANSINT:[id number] Voice Confirmation ID: [id number] DOCUMENT ID: [id number] AUSTYN HORNE III, MD at 0919 CC: [id number] DICTATION DATE: 01/02/18 1142 CUT OUT OPERATOR: 01/02/18 1202 ADM IN [place] [address] [place] [address]
--- NOTE | ~2017-12-29 | PN ---
PATIENT:FABIAN CORTEZ MEDICAL RECORD: [id number] LOCATION:DALLASJimy Herrera112 ADMISSION DATE: 12/29/17 PROGRESS NOTE DATE OF SERVICE: 01/03/2018 SUBJECTIVE: The patient complained of brief anxiety. OBJECTIVE: The patient did receive p.r.n. last night. Aside from this, she has been doing. On exam, mood is for the most part euthymic. Affect is occasionally brittle. Speech is fluent. Content of thought focuses on somatic concerns. Sensorium shows no change. ASSESSMENT: No change in diagnosis. PLAN: 1. Maintain current medication. 2. Continue supportive therapy. TRANSINT:[id number] Voice Confirmation ID: [id number] DOCUMENT ID: [id number] AUSTYN HORNE III, MD at 1056 CC: [id number] DICTATION DATE: 01/03/18 1015 PREASSEMBLER PRINTED CIRCUIT BOARD: 01/03/18 1312 ADM IN [place] [id number] [place] [address]
--- NOTE | ~2017-12-29 | PN ---
PATIENT:FABIAN CORTEZ MEDICAL RECORD: [id number] LOCATION:ABDULAZIZ QuinteroNadine112 ADMISSION DATE: 12/29/17 PROGRESS NOTE DATE OF SERVICE: 01/05/2018 SUBJECTIVE: The patient continues to make rather dramatic statements about perceived anxiety or difficulty concentrating. OBJECTIVE: Staff reports the patient continues to behave in a rather histrionic fashion from time to time. She becomes upset over some minor event and then immediately asks for Ativan. The patient has been redirected from this. The patient's mood today is slightly anxious. Affect is shallow. Speech is fluent. Content of thought is again focused on somatic concerns. Sensorium shows no change. ASSESSMENT: No change in diagnosis. PLAN: 1. Maintain current medication. 2. Continue supportive therapy. TRANSINT:[id number] Voice Confirmation ID: [id number] DOCUMENT ID: [id number] AUSTYN HORNE III, MD at 0816 CC: [id number] DICTATION DATE: 01/05/18 112 PERFORMANCE REPORTER: 01/05/18 1155 ADM IN [place] [id number] [place] [id number]
[2017-12-29] MEDS ORDERED: HYDROCHLOROTH12.5 M1 PO (21:14)
[2017-12-29 22:22] VITALS: BP 137/83; BMI 19.2
[2017-12-30 06:24] LABS: BASOPHILS 0.5 % (0-2); EOSINOPHILS 1.6 % (0-7); HEMATOCRIT 37.8 % (36.0-48.0); HEMOGLOBIN 12.7 g/dL (12-16); IMMATURE GRANULOCYTES 0.2 % (0-5); LYMPHOCYTES 45.9 % (15-50); MCH 29.5 pg (26.0-34.0); MCHC 33.6 g/dL (31.0-37.0); MCV 87.7 fL (80.0-100.0); MEAN PLATELET VOLUME 11.7 fL (7.4-10.4); MONOCYTES 8.3 % (2-11); NEUTROPHILS 43.5 % (40-80); RBC 4.31 10x6/uL (4.00-5.40); RDW 14.5 % (11.5-14.5); WBC 6.1 10x3/uL (4.8-10.8)
[2017-12-30 06:25] LABS: PLATELET COUNT 295 10x3/uL (130-400)
[2017-12-30 06:52] LABS: ALBUMIN 3.4 g/dL (3.4-5.0); ALKALINE PHOSPHATASE 68 U/L (46-116); ALT (SGPT) 16 U/L (10-68); BILIRUBIN - TOTAL 0.96 mg/dL (0.2-1.3); CALC OSMOLALITY 276 mosm/kg (275-300); CARBON DIOXIDE 23.4 mmol/L (21.0-32.0); CHLORIDE - SERUM 105 mmol/L (98-107); CHOL - HDL RATIO 4.5 ratio (2.3-4.1); CHOLESTEROL, TOTAL 220 mg/dL (0-200); CREATININE - SERUM 0.6 mg/dL (0.6-1.3); GLUCOSE 104 mg/dL (74-106); HDL CHOLESTEROL 49 mg/dL (32-96); LDL CHOLESTEROL 150 mg/dL (0-100); LDL-HDL RATIO 3.1 ratio (1.5-3.5); POTASSIUM - SERUM 3.2 mmol/L (3.5-5.1); PROTEIN - SERUM 6.7 g/dL (6.4-8.2); SODIUM 139 mmol/L (136-145); THYROID STIMULATING HORMONE 1.16 uIU/mL (0.36-3.74); TRIGLYCERIDE 105 mg/dL (30-200); UREA NITROGEN 10 mg/dL (7-18); eGFR NON AFRICAN AMERICAN > 90 mL/min (90-120)
[2017-12-30 09:28] VITALS: BP 122/54
[2017-12-30 11:10] VITALS: BMI 19.1
[2017-12-30 20:10] VITALS: BP 141/79
[2017-12-31 04:17] LABS: RAPID PLASMA REAGIN Non Reactive (Non Reactive)
[2017-12-31 06:02] LABS: CALC OSMOLALITY 282 mosm/kg (275-300); CALCIUM 9.5 mg/dL (8.5-10.1); CARBON DIOXIDE 23.6 mmol/L (21.0-32.0); CHLORIDE - SERUM 107 mmol/L (98-107); CREATININE - SERUM 0.7 mg/dL (0.6-1.3); GLUCOSE 99 mg/dL (74-106); SODIUM 142 mmol/L (136-145); UREA NITROGEN 12 mg/dL (7-18); eGFR NON AFRICAN AMERICAN 89 mL/min (90-120)
[2017-12-31 07:00] VITALS: BP 136/76
[2017-12-31 08:16] LABS: FOLATE (FOLIC ACID) - SERUM 18.3 ng/mL (>3.0)
[2017-12-31 10:58] LABS: APPEARANCE CLEAR (CLEAR); BILIRUBIN NEGATIVE (NEGATIVE); COLOR YELLOW (YELLOW); GLUCOSE NEGATIVE (NEGATIVE); KETONE NEGATIVE (NEGATIVE); NITRITE NEGATIVE (NEGATIVE); PROTEIN NEGATIVE (NEGATIVE); UROBILINOGEN NORMAL (NORMAL)
[2017-12-31 11:00] LABS: BACTERIA MODERATE /hpf (NONE SEEN); EPITHELIAL CELLS 0-5 /hpf (0-5); RED CELLS - URINE NONE SEEN /hpf (0-5); WHITE CELLS - URINE 0-5 /hpf (0-5)
[2017-12-31 19:57] VITALS: BP 139/69
[2017-12-31 21:06] LABS: VITAMIN D 25 HYDROXY 8.7 ng/mL (30.0-100.0)
[2018-01-01 07:06] LABS: BASOPHILS 0.7 % (0-2); HEMATOCRIT 40.1 % (36.0-48.0); HEMOGLOBIN 13.2 g/dL (12-16); IMMATURE GRANULOCYTES 0.2 % (0-5); LYMPHOCYTES 41.6 % (15-50); MCH 29.7 pg (26.0-34.0); MCHC 32.9 g/dL (31.0-37.0); MCV 90.1 fL (80.0-100.0); MEAN PLATELET VOLUME 10.7 fL (7.4-10.4); MONOCYTES 5.9 % (2-11); NEUTROPHILS 49.6 % (40-80); PLATELET COUNT 263 10x3/uL (130-400); RBC 4.45 10x6/uL (4.00-5.40); RDW 14.4 % (11.5-14.5); WBC 6.1 10x3/uL (4.8-10.8)
[2018-01-01 07:16] LABS: CARBON DIOXIDE 26.1 mmol/L (21.0-32.0); CREATININE - SERUM 0.9 mg/dL (0.6-1.3); MAGNESIUM - SERUM 2.3 mg/dL (1.8-2.4); PHOSPHOROUS 4.1 mg/dL (2.5-4.9); POTASSIUM - SERUM 4.1 mmol/L (3.5-5.1)
[2018-01-01 07:52] VITALS: BP 131/87
[2018-01-01 19:53] VITALS: BP 107/54
[2018-01-02 07:00] VITALS: BP 131/72
[2018-01-02 10:26] VITALS: BMI 19.2
[2018-01-03 07:00] VITALS: BP 136/73
[2018-01-03 20:08] VITALS: BP 117/65
[2018-01-04 10:47] VITALS: BP 113/63
[2018-01-04 20:06] VITALS: BP 104/62
[2018-01-05 09:31] VITALS: BP 108/76
[2018-01-05 19:44] VITALS: BP 116/56
[2018-01-06 09:32] VITALS: BP 118/58
[2018-01-06 20:22] VITALS: BP 103/60
[2018-01-07 09:57] VITALS: BP 138/74
[2018-01-07 20:01] VITALS: BP 102/60
[2018-01-08 07:00] VITALS: BP 97/62
[2018-01-08 19:30] VITALS: BP 101/068
[2018-01-09 07:00] VITALS: BP 110/52
[2018-01-09] MEDS ORDERED: THORAZINE25 MG PO (09:02)
[2018-01-09] MEDS ORDERED: LEVSIN/ANASP0.125 MG PO (09:02)
[2018-01-09] MEDS ORDERED: VISTARIL50 MG PO (09:03)
[2018-01-09] MEDS ORDERED: TRAZODONE HCL150 MG PO (09:03)
[2018-01-09] MEDS ORDERED: K-DUR20 MEQ PO (09:03)
[2018-01-09] MEDS ORDERED: FOLIC ACID1 MG PO (09:04)
[2018-01-09] MEDS ORDERED: VITAMIN B-121000 MCG PO (09:04)
[2018-01-09 19:49] VITALS: BP 112/57
[2018-01-10 09:52] VITALS: BP 127/73
[2018-01-10 11:05] VITALS: BP 127/73
[2018-01-10 19:42] VITALS: BP 135/72
[2018-01-10 23:01] VITALS: Ht 172.7 cm; Wt 57.3 kg
== END 2018-01-10 16:15 | disposition home or self-care (01) | DRG 881 ==
LOC: D.PSYCH 19:04
PROVIDERS: Family Medicine; Psychiatry & Neurology Psychiatry
DX: F32.9 Major depressive disorder, single episode, unspecified (principal); R45.851 Suicidal ideations; F19.10 Other psychoactive substance abuse, uncomplicated; K58.9 Irritable bowel syndrome, unspecified; K57.90 Diverticulosis of intestine, part unspecified, without perforation or abscess without bleeding; E78.5 Hyperlipidemia, unspecified; E87.6 Hypokalemia; G62.9 Polyneuropathy, unspecified; R82.71 Bacteriuria

== ENCOUNTER 2018-01-18 08:34 | Inpatient (IN) | payer MEDICARE ==
[~2018-01-18] VITALS: Ht 172.7 cm; Wt 59.9 kg
--- NOTE | ~2018-01-18 | EC ---
PATIENT:FABIAN CORTEZ DATE OF SERVICE: 01/18/18 SEX: F MEDICAL RECORD: [id number] DATE OF : 54 LOCATION:D.MS Hernandez AGE OF PATIENT: 67 ADMISSION DATE: 01/18/18 REFERRING PHYSICIAN: INTERPRETING PHYSICIAN: JESUS GARY MD ECHOCARDIOGRAM REPORT ECHO CHARGES 4 ECHO COMPLETE CLINICAL DIAGNOSIS: ACS ECHOCARDIOGRAPHIC MEASUREMENTS (adult normal given) AC root (d.<3.7cm) 3.4 cm LV Septum d (<1.2 cm> 1.3 cm Valve Excursion 1.4 cm LV Septum (systole) 1.4 cm Left Atria (s.<4.0cm> 3.5 cm LVPW d(<1.2cm) 1.3 cm RV (d.<2.3cm) 5.1 cm LVPW (sytole) 1.7 cm LV diastole(<5.6CM) 5.4 cm MV E-F(>70mm/sec) cm LV systole 4.2 cm LVOT Diameter 1.8 cm MV exc.(>10mm) 2.5 cm Est.ejection fraction (50-75%) % Pericardial Effusion N DOPPLER: LVIT cm/sec A 72.0 cm/sec E 96.0 cm/sec LA cm/sec RVSP 35 mmHg LVOT 94 cm/sec AOP1/2T m/s Asc. Ao 249 cm/sec RVOT 80 cm/sec RA cm/sec PA 181 cm/sec AV Gradient Peak 24.84mmHg AV Mean 11.25mmHg AV Area 2.2 cm MV Gradient Peak 6.36 mmHg MV Mean 2.46 mmHg MV Area cm COMMENTS: Softball Winder: Sotero MCKNIGHT Cloth Finishing Range Operator: 3 Dr. Ann TAPE# PACS DATE OF SERVICE: 01/20/2018 Echocardiogram FINDINGS: 1. Left ventricular chamber size is within normal limits. Left ventricular systolic function is normal. Overall ejection fraction estimated at 50%. 2. Left atrium is within normal limits at 3.5 cm. Right atrium and right ventricular chamber sizes are jilu-zk-zqodnwdqjg dilated. 3. Valvular structures: Aortic valve demonstrates mild calcific aortic ECHOCARDIOGRAM REPORT [id number] FABIAN CORTEZ stenosis. The valve area calculates to 2.0 cm-squared with gradient of 25 mm across the valve. The remaining valvular structures have normal structure and motion. 4. Doppler interrogation elsewise reveals mild mitral regurgitation, mild tricuspid regurgitation, no other valvular insufficiency or stenosis. 5. No evidence of pericardial effusion or left ventricular thrombus. TRANSINT:[id number] Voice Confirmation ID: [id number] DOCUMENT ID: [id number] JESUS GARY MD at 1202 CC: [id number] DICTATION DATE: 01/20/18 1457 PARTITION MAKING MACHINE OPERATOR: 01/20/18 1508 DIS IN 01/20/18 [facility] [address] [place] [address]
--- NOTE | ~2018-01-18 | OP ---
PATIENT NAME: FABIAN CORTEZ MEDICAL RECORD: [id number] :54 [facility] ADMISSION DATE:01/18/18 SURGEON: MECCA THOMAS MD DATE OF OPERATION: 01/18/2018 PREOPERATIVE DIAGNOSIS: Right intertrochanteric hip fracture. POSTOPERATIVE DIAGNOSIS: Right intertrochanteric hip fracture. PROCEDURE: Cephalomedullary fixation of right hip that is gamma nail. SURGEON: Mecca Thomas MD ANESTHESIA: General. INTRAOPERATIVE COMPLICATIONS: None. SUMMARY OF PATHOLOGIC FINDINGS: The fracture was seen on fluoro as seen on the radiographs in ER. IMPLANTS USED: Gamma nail 125 with 85 compression screw and a 25 mm distal interlocking screw. ESTIMATED BLOOD LOSS: 200 cc. OPERATIVE SUMMARY IN DETAIL: After obtaining the appropriate preoperative orthopedic surgery consent as well as anesthetic consultation, evaluation and clearance, the patient was brought to the operating room and placed on the operating table in supine position. After general laryngeal mask was administered, the patient was placed in the fracture table. All pressure points were well padded. She was held firmly to the operating table using the seatbelt and straps system. Radiographs were taken and fluoroscopy was then used to ensure nondisplacement of the fracture. Hip was prepped and draped in routine sterile fashion. Incision was made proximal tip of the greater trochanter. The awl was used to place a ball-tipped guidewire down the femur. Reaming was then done proximally. The gamma nail was then put into place to the appropriate depth. The guidewire was placed in the center low position of the femoral head. Compression was then carried out across the fracture. The rotational screw was deployed and backed off approximately 1 turn to allow for compression, but not rotation. Distal interlocking was done again under fluoroscopy using the outrigger. Final radiographs were taken and submitted for radiologist review. Wounds were irrigated and closed with 2-0 Vicryl and skin narayan. Sterile dressings were applied. The patient was awakened, taken to recovery in stable condition. All final needle and sponge counts were correct. TRANSINT:[id number] Voice Confirmation ID: [id number] DOCUMENT ID: [id number] OPERATIVE REPORT [id number] FABIAN CORTEZ MD, MECCA BIGGS at 1621 CC: [id number] DICTATION DATE: 01/18/18 1538 DATA CODER OPERATOR: 01/18/18 1609 ADM IN [place] [id number] [place] [id number]
--- NOTE | ~2018-01-18 | OP ---
PATIENT NAME: FABIAN CORTEZ MEDICAL RECORD: [id number] :54 LOCATION:D.MS Herrrea2238 ADMISSION DATE:01/18/18 SURGEON: MECCA THOMAS MD DATE OF OPERATION: 01/18/2018 PREOPERATIVE DIAGNOSIS: Intertrochanteric hip fracture. POSTOPERATIVE DIAGNOSIS: Intertrochanteric hip fracture. PROCEDURE: Cephalomedullary fixation that is gamma nail to the right hip. SURGEON: Mecca Thomas MD ANESTHESIA: General. INTRAOPERATIVE COMPLICATIONS: None. SUMMARY OF PATHOLOGIC FINDINGS: Consistent with preoperative radiographs, the patient had intertrochanteric hip fracture that required reduction and fixation. OPERATIVE SUMMARY IN DETAIL: After obtaining the appropriate preoperative orthopedic surgery consent as well as anesthetic consultation, evaluation, and clearance, the patient was brought to the operating room and placed on the operating table in supine position. After adequate general laryngeal mask airway was administered, the patient was placed on the fracture table. Right leg was placed in the fracture boot and left leg was placed in the Well-Leg martinez. Reduction maneuver was performed under fluoroscopic guidance. Hip was prepped and draped in routine sterile fashion. A small incision was made at the tip of the greater trochanter, taken down to the level of the tip of the greater trochanter where the awl was used to start the intramedullary guidewire. Proximal reaming was then followed by insertion of the short gamma nail to the appropriate depth where upon the guide pin was placed in center-center position of the femoral head. Appropriate reaming was then followed by placement of the compression screw. Derotational screw was deployed in proximal portion of the device and backed off 2-1/2 turns. Compression was then placed across the fracture. Distal interlocking screw was placed using the guide under fluoroscopy. Final AP and lateral radiographs were taken and submitted for radiologist for final review. Incisions were closed in the usual fashion. Sterile dressings were applied. The patient was awakened and taken to recovery room in stable condition. All final needle and sponge counts were correct. TRANSINT:[id number] Voice Confirmation ID: [id number] DOCUMENT ID: [id number] MECCA THOMAS MD at 1341 CC: [id number] DICTATION DATE: 02/20/18 2251 LEAD PRESS OPERATOR: 02/21/18 0912 DIS IN 01/20/18 [facility] [address] [facility] [place] [address]
[~2018-01-18 08:34] MED LIST changes: +HYDROCHLOROTH12.5 M1 PO; +K-DUR20 MEQ PO; +LEVSIN/ANASP0.125 MG PO; +THORAZINE25 MG PO; +TRAZODONE HCL150 MG PO; +VISTARIL50 MG PO; +VITAMIN B-121000 MCG PO
[2018-01-18 10:52] LABS: BASOPHILS 0.2 % (0-2); HEMATOCRIT 39.7 % (36.0-48.0); HEMOGLOBIN 13.4 g/dL (12-16); IMMATURE GRANULOCYTES 0.3 % (0-5); LYMPHOCYTES 15.1 % (15-50); MCH 29.6 pg (26.0-34.0); MCHC 33.8 g/dL (31.0-37.0); MCV 87.8 fL (80.0-100.0); MEAN PLATELET VOLUME 11.1 fL (7.4-10.4); MONOCYTES 4.7 % (2-11); NEUTROPHILS 77.7 % (40-80); PLATELET COUNT 249 10x3/uL (130-400); RBC 4.52 10x6/uL (4.00-5.40); RDW 13.5 % (11.5-14.5); WBC 14.4 10x3/uL (4.8-10.8)
[2018-01-18 11:36] LABS: ALBUMIN 3.6 g/dL (3.4-5.0); ALKALINE PHOSPHATASE 168 U/L (46-116); ALT (SGPT) 83 U/L (10-68); BILIRUBIN - TOTAL 0.01 mg/dL (0.2-1.3); CALC OSMOLALITY 278 mosm/kg (275-300); CALCIUM 9.7 mg/dL (8.5-10.1); CARBON DIOXIDE 23.5 mmol/L (21.0-32.0); CHLORIDE - SERUM 106 mmol/L (98-107); CREATININE - SERUM 0.7 mg/dL (0.6-1.3); GLUCOSE 92 mg/dL (74-106); POTASSIUM - SERUM 3.4 mmol/L (3.5-5.1); SODIUM 141 mmol/L (136-145); UREA NITROGEN 7 mg/dL (7-18); eGFR NON AFRICAN AMERICAN 89 mL/min (90-120)
[2018-01-18 21:09] VITALS: BP 120/74
[2018-01-19] MEDS ORDERED: KLOR-CON M2020 MEQ PO (00:03)
[2018-01-19] MEDS ORDERED: THORAZINE25 MG PO (00:05)
[2018-01-19 01:38] VITALS: BP 184/84
[2018-01-19 02:57] VITALS: BMI 20.1
[2018-01-19 04:42] VITALS: BP 104/58
[2018-01-19 05:50] LABS: HEMATOCRIT 35.8 % (36.0-48.0); HEMOGLOBIN 11.8 g/dL (12-16); MCH 29.4 pg (26.0-34.0); MCV 89.3 fL (80.0-100.0); MEAN PLATELET VOLUME 11.4 fL (7.4-10.4); RBC 4.01 10x6/uL (4.00-5.40); RDW 13.1 % (11.5-14.5)
[2018-01-19 06:19] LABS: WBC 10.3 10x3/uL (4.8-10.8)
[2018-01-19 09:37] VITALS: BP 110/60
[2018-01-19 12:20] VITALS: BP 116/69
[2018-01-19 12:47] LABS: APPEARANCE HAZY (CLEAR); BILIRUBIN NEGATIVE (NEGATIVE); COLOR YELLOW (YELLOW); GLUCOSE NEGATIVE (NEGATIVE); KETONE NEGATIVE (NEGATIVE); NITRITE NEGATIVE (NEGATIVE); PROTEIN TRACE mg/dL (NEGATIVE); SPECIFIC GRAVITY 1.025 (1.005-1.020); UROBILINOGEN NORMAL (NORMAL)
[2018-01-19 12:48] LABS: EPITHELIAL CELLS OCC /hpf (0-5); RED CELLS - URINE 25-50 /hpf (0-5); WHITE CELLS - URINE RARE /hpf (0-5)
[2018-01-19 12:49] LABS: AMORPHOUS SEDIMENT <1+ /lpf (NONE SEEN); BACTERIA FEW /hpf (NONE SEEN); HYALINE CAST RARE /lpf (NONE SEEN); MUCUS <1+ /lpf (NONE SEEN)
[2018-01-19 13:52] VITALS: Ht 172.7 cm; Wt 59.9 kg
[2018-01-19 15:06] LABS: CKMB 4.5 U/L (0.0-3.6); CREATINE KINASE 78 UL (21-215)
[2018-01-19 15:40] LABS: TROPONIN-I 0.722 ng/mL (0.000-0.060)
[2018-01-19 17:05] VITALS: BP 112/70
[2018-01-19 21:39] VITALS: BP 151/65
[2018-01-20 00:53] LABS: CKMB 5.1 U/L (0.0-3.6); CREATINE KINASE 75 UL (21-215)
[2018-01-20 00:54] LABS: TROPONIN-I 0.603 ng/mL (0.000-0.060)
[2018-01-20 05:34] VITALS: BP 107/67
[2018-01-20 06:23] LABS: HEMATOCRIT 34.8 % (36.0-48.0); HEMOGLOBIN 11.6 g/dL (12-16); MCH 29.7 pg (26.0-34.0); MCHC 33.3 g/dL (31.0-37.0); MCV 89.2 fL (80.0-100.0); RBC 3.9 10x6/uL (4.00-5.40); RDW 13.5 % (11.5-14.5); WBC 11.4 10x3/uL (4.8-10.8)
[2018-01-20 07:01] LABS: TROPONIN-I 0.544 ng/mL (0.000-0.060)
[2018-01-20 07:55] VITALS: BP 113/76
[2018-01-20] MEDS ORDERED: ELIQUIS2.5 MG PO (11:36)
[2018-01-20] MEDS ORDERED: KLONOPIN0.5 MG PO (11:36)
[2018-01-20] MEDS ORDERED: BYSTOLIC2.5 MG PO (11:36)
[2018-01-20] MEDS ORDERED: PERCOCET 10/3251 TA1 PO (11:37)
[2018-01-20 11:49] VITALS: BP 92/67
[2018-01-20 15:37] VITALS: BP 106/50
== END 2018-01-20 16:14 | DRG 481 ==
LOC: D.ER 08:34 → D.MS 10:22 → D.EDHOLD 10:22 → D.MS 16:31
PROVIDERS: Emergency Medicine; Orthopaedic Surgery
PROC: 05HC33Z Insertion of Infusion Device into Left Basilic Vein, Percutaneous Approach (ICD-10-PCS; 2018-01-18)
PROC: B54NZZA Ultrasonography of Left Upper Extremity Veins, Guidance (ICD-10-PCS; 2018-01-18)
PROC: 0QS636Z Reposition Right Upper Femur with Intramedullary Internal Fixation Device, Percutaneous Approach (ICD-10-PCS; principal; 2018-01-18 13:30)
DX: S72.141A Displaced intertrochanteric fracture of right femur, initial encounter for closed fracture (principal); I24.9 Acute ischemic heart disease, unspecified; W19.XXXA Unspecified fall, initial encounter; F10.20 Alcohol dependence, uncomplicated; G62.9 Polyneuropathy, unspecified; R00.0 Tachycardia, unspecified; F41.9 Anxiety disorder, unspecified; F32.9 Major depressive disorder, single episode, unspecified

== ENCOUNTER 2018-01-20 16:06 | Inpatient (IN) | payer MEDICARE ==
[~2018-01-20] VITALS: Ht 172.7 cm; Wt 59.9 kg
--- NOTE | ~2018-01-20 | DS ---
PATIENT:FABIAN CORTEZ :54 MEDICAL RECORD: [id number] DISCHARGE SUMMARY ADMISSION DATE: 01/20/18 DISCHARGE DATE: 01/27/18 This is a discharge dated 01/27/2018 from inpatient rehabilitation. PRIMARY DIAGNOSIS: Decreased functional ability and ability to provide activities of daily living, status post right femoral neck fracture with nailing. SECONDARY DIAGNOSES: 1. Acute coronary syndrome. 2. Hypokalemia. 3. Hyperlipidemia. 4. Neuropathy. 5. Irritable bowel syndrome. 6. Anxiety/depression. 7. Chronic vitamin D deficiency. 8. History of ETOH abuse. 9. Anemia. HOSPITAL COURSE: Full H&P is located elsewhere on the chart on this 67-year-old female who was admitted to inpatient rehab for physical therapy and occupational therapy to improve gait, transfer skills, bed mobility, and activities of daily living to a modified independent level. She was evaluated by PT and OT and their recommendations were followed. She required retirement care for observation and assessment, medication administration, as well as wound care and monitoring of surgical incisions. Electrolytes were managed by protocol. She was continued on appropriate home medications. She was cooperative with therapies, progressing towards goals. Case management was involved for discharge planning. She was considered stable for discharge on 01/27/2018. DISCHARGE MEDICATIONS: As per discharge medication reconciliation. DISCHARGE DISPOSITION: The patient is discharged home. She will have home health for continued PT and OT. She was prescribed a rolling walker through [facility]. She will follow up with primary care and specialist as directed. At least 30 minutes was spent in this discharge activity. TRANSINT:[id number] Voice Confirmation ID: [id number] DOCUMENT ID: [id number] Dictated By: REBECCA FITZGERALD I have interviewed/examined the above patient and agree with these documented findings. DISCHARGE SUMMARY REPORT [id number] ZEEFABIAN MCCONNELLCHARLY MATHIS MD at 1157 at 0940 CC: [id number] DICTATION DATE: 03/11/18 1357 VEIN ACCESS TECHNICIAN: 03/12/18 1000 DIS IN 01/27/18 [place] [address]
[~2018-01-20 16:06] MED LIST changes: +BYSTOLIC2.5 MG PO; +KLONOPIN0.5 MG PO; +KLOR-CON M2020 MEQ PO
[2018-01-20 16:58] VITALS: BP 116/79; BMI 20.1
[2018-01-20 19:25] VITALS: BP 127/79
[2018-01-21 06:06] LABS: BASOPHILS 0.4 % (0-2); EOSINOPHILS 4.2 % (0-7); HEMOGLOBIN 10.9 g/dL (12-16); IMMATURE GRANULOCYTES 0.1 % (0-5); LYMPHOCYTES 26.8 % (15-50); MCH 29.3 pg (26.0-34.0); MCV 88.7 fL (80.0-100.0); MEAN PLATELET VOLUME 11.3 fL (7.4-10.4); MONOCYTES 8.6 % (2-11); NEUTROPHILS 59.9 % (40-80); PLATELET COUNT 196 10x3/uL (130-400); RBC 3.72 10x6/uL (4.00-5.40); RDW 13.4 % (11.5-14.5)
[2018-01-21 06:21] LABS: WBC 7.2 10x3/uL (4.8-10.8)
[2018-01-21 06:28] LABS: CALC OSMOLALITY 272 mosm/kg (275-300); CALCIUM 8.8 mg/dL (8.5-10.1); CARBON DIOXIDE 24.2 mmol/L (21.0-32.0); CHLORIDE - SERUM 105 mmol/L (98-107); CREATININE - SERUM 0.6 mg/dL (0.6-1.3); GLUCOSE 108 mg/dL (74-106); POTASSIUM - SERUM 3.8 mmol/L (3.5-5.1); SODIUM 137 mmol/L (136-145); UREA NITROGEN 8 mg/dL (7-18); eGFR NON AFRICAN AMERICAN > 90 mL/min (90-120)
[2018-01-21 09:37] VITALS: BP 128/88
[2018-01-21 09:58] VITALS: Ht 172.7 cm; Wt 59.9 kg
[2018-01-21 19:10] VITALS: BP 99/55
[2018-01-22 07:52] VITALS: BP 131/73
[2018-01-22 22:34] VITALS: BP 111/73
[2018-01-23 07:11] LABS: BASOPHILS 0.2 % (0-2); EOSINOPHILS 5.1 % (0-7); HEMATOCRIT 32.5 % (36.0-48.0); HEMOGLOBIN 10.6 g/dL (12-16); IMMATURE GRANULOCYTES 0.2 % (0-5); MCH 29.4 pg (26.0-34.0); MCHC 32.6 g/dL (31.0-37.0); MEAN PLATELET VOLUME 10.8 fL (7.4-10.4); MONOCYTES 9.1 % (2-11); NEUTROPHILS 57.4 % (40-80); PLATELET COUNT 234 10x3/uL (130-400); RBC 3.61 10x6/uL (4.00-5.40); RDW 13.6 % (11.5-14.5); WBC 4.7 10x3/uL (4.8-10.8)
[2018-01-23 07:24] LABS: CALC OSMOLALITY 277 mosm/kg (275-300); CALCIUM 8.7 mg/dL (8.5-10.1); CARBON DIOXIDE 25.9 mmol/L (21.0-32.0); CHLORIDE - SERUM 106 mmol/L (98-107); CREATININE - SERUM 0.6 mg/dL (0.6-1.3); GLUCOSE 118 mg/dL (74-106); POTASSIUM - SERUM 3.7 mmol/L (3.5-5.1); SODIUM 140 mmol/L (136-145); UREA NITROGEN 8 mg/dL (7-18); eGFR NON AFRICAN AMERICAN > 90 mL/min (90-120)
[2018-01-23 07:44] VITALS: BP 120/69
[2018-01-23 07:51] VITALS: BP 118/63
[2018-01-23 18:53] VITALS: BP 124/77
[2018-01-24 08:09] VITALS: BP 119/70
[2018-01-24 20:19] VITALS: BP 134/72
[2018-01-25 07:46] VITALS: BP 123/80
[2018-01-25 20:06] VITALS: BP 129/66
[2018-01-26 06:56] LABS: BASOPHILS 0.6 % (0-2); EOSINOPHILS 1.7 % (0-7); HEMATOCRIT 35.9 % (36.0-48.0); HEMOGLOBIN 11.6 g/dL (12-16); IMMATURE GRANULOCYTES 0.2 % (0-5); LYMPHOCYTES 29.5 % (15-50); MCH 29.1 pg (26.0-34.0); MCHC 32.3 g/dL (31.0-37.0); MCV 90.2 fL (80.0-100.0); MEAN PLATELET VOLUME 10.4 fL (7.4-10.4); MONOCYTES 9.6 % (2-11); NEUTROPHILS 58.4 % (40-80); PLATELET COUNT 269 10x3/uL (130-400); RBC 3.98 10x6/uL (4.00-5.40); RDW 13.8 % (11.5-14.5); WBC 5.3 10x3/uL (4.8-10.8)
[2018-01-26 07:07] LABS: CALC OSMOLALITY 271 mosm/kg (275-300); CALCIUM 8.5 mg/dL (8.5-10.1); CARBON DIOXIDE 24.2 mmol/L (21.0-32.0); CHLORIDE - SERUM 104 mmol/L (98-107); CREATININE - SERUM 0.7 mg/dL (0.6-1.3); GLUCOSE 100 mg/dL (74-106); POTASSIUM - SERUM 4.1 mmol/L (3.5-5.1); SODIUM 137 mmol/L (136-145); UREA NITROGEN 6 mg/dL (7-18); eGFR NON AFRICAN AMERICAN 89 mL/min (90-120)
[2018-01-26 08:05] VITALS: BP 126/65
[2018-01-26 19:43] VITALS: BP 110/70
[2018-01-27 09:45] VITALS: BP 114/73
== END 2018-01-27 14:20 | disposition home health service (06) | DRG 536 ==
LOC: D.REHAB 16:06
PROVIDERS: Emergency Medicine; Family Medicine
DX: S72.001A Fracture of unspecified part of neck of right femur, initial encounter for closed fracture (principal); I24.9 Acute ischemic heart disease, unspecified; W19.XXXA Unspecified fall, initial encounter; R94.31 Abnormal electrocardiogram [ECG] [EKG]; E87.6 Hypokalemia; R33.9 Retention of urine, unspecified; R00.0 Tachycardia, unspecified; E78.5 Hyperlipidemia, unspecified; R79.89 Other specified abnormal findings of blood chemistry; G62.9 Polyneuropathy, unspecified; K58.9 Irritable bowel syndrome, unspecified; R53.1 Weakness; R53.83 Other fatigue; F41.8 Other specified anxiety disorders; E53.8 Deficiency of other specified B group vitamins; E55.9 Vitamin D deficiency, unspecified

== ENCOUNTER 2018-09-13 17:35 | Emergency (ER) | payer MEDICARE ==
[~2018-09-13] VITALS: Ht 172.7 cm; Wt 59.1 kg
[2018-09-13 17:40] VITALS: Ht 172.7 cm; Wt 59.1 kg
[2018-09-13] MEDS ORDERED: HYDROCODON-ACE1 EAC7 PO (18:59)
[2018-09-13 19:37] VITALS: BP 138/73
== END 2018-09-13 19:38 | disposition home or self-care (01) ==
LOC: D.ER 17:35
DX: S83.91XA Sprain of unspecified site of right knee, initial encounter (principal); X58.XXXA Exposure to other specified factors, initial encounter; Y93.89 Activity, other specified; Y92.013 Bedroom of single-family (private) house as the place of occurrence of the external cause; Z96.651 Presence of right artificial knee joint

== ENCOUNTER 2018-10-08 05:18 | Emergency (ER) | payer MEDICARE ==
[~2018-10-08] VITALS: Ht 172.7 cm; Wt 59.1 kg
[~2018-10-08 05:18] MED LIST changes: +HYDROCODON-ACE1 EAC7 PO
[2018-10-08 05:21] VITALS: Ht 172.7 cm; Wt 59.1 kg
[2018-10-08 05:50] LABS: BASOPHILS 0.4 % (0-2); EOSINOPHILS 0.5 % (0-7); HEMOGLOBIN 13.1 g/dL (12-16); IMMATURE GRANULOCYTES 0.2 % (0-5); LYMPHOCYTES 17.4 % (15-50); MCH 29.9 pg (26.0-34.0); MCHC 34.5 g/dL (31.0-37.0); MCV 86.8 fL (80.0-100.0); MONOCYTES 4.1 % (2-11); NEUTROPHILS 77.4 % (40-80); PLATELET COUNT 254 10x3/uL (130-400); RBC 4.38 10x6/uL (4.00-5.40); WBC 9.4 10x3/uL (4.8-10.8)
[2018-10-08 06:06] LABS: ALBUMIN 3.7 g/dL (3.4-5.0); ALKALINE PHOSPHATASE 69 U/L (46-116); ALT (SGPT) 15 U/L (10-68); BILIRUBIN - TOTAL 0.65 mg/dL (0.2-1.3); CALC OSMOLALITY 277 mosm/kg (275-300); CALCIUM 9.6 mg/dL (8.5-10.1); CARBON DIOXIDE 22.1 mmol/L (21.0-32.0); CHLORIDE - SERUM 106 mmol/L (98-107); CREATININE - SERUM 0.6 mg/dL (0.6-1.3); GLUCOSE 105 mg/dL (74-106); POTASSIUM - SERUM 3.5 mmol/L (3.5-5.1); PROTEIN - SERUM 7.2 g/dL (6.4-8.2); SODIUM 140 mmol/L (136-145); UREA NITROGEN 10 mg/dL (7-18); eGFR NON AFRICAN AMERICAN > 90 mL/min (90-120)
[2018-10-08 06:10] LABS: AMYLASE - SERUM 36 U/L (25-115); LIPASE 66 U/L (73-393); TROPONIN-I 0.018 ng/mL (0.000-0.060)
[2018-10-08 06:13] LABS: APPEARANCE HAZY (CLEAR); BILIRUBIN NEGATIVE (NEGATIVE); COLOR YELLOW (YELLOW); GLUCOSE NEGATIVE (NEGATIVE); KETONE SMALL mg/dL (NEGATIVE); NITRITE NEGATIVE (NEGATIVE); PROTEIN NEGATIVE (NEGATIVE); RED CELLS - URINE OCC /hpf (0-5); UROBILINOGEN NORMAL (NORMAL); WHITE CELLS - URINE 0-5 /hpf (0-5)
[2018-10-08 08:34] LABS: UDS - AMPHET NEGATIVE QUAL (NEGATIVE); UDS - BARB NEGATIVE QUAL (NEGATIVE); UDS - BENZO NEGATIVE QUAL (NEGATIVE); UDS - COCAINE NEGATIVE QUAL (NEGATIVE); UDS - OPIATE NEGATIVE QUAL (NEGATIVE); UDS - PCP NEGATIVE QUAL (NEGATIVE); UDS - THC POSITIVE QUAL (NEGATIVE)
[2018-10-08] MEDS ORDERED: PROTONIX40 MG PO (08:54)
[2018-10-08] MEDS ORDERED: PHENERGAN25 M1 PO (08:54)
[2018-10-08 10:53] VITALS: BP 159/76
== END 2018-10-08 10:53 | disposition home or self-care (01) ==
LOC: D.ER 05:18
PROVIDERS: Family Medicine
DX: R11.10 Vomiting, unspecified (principal); K29.70 Gastritis, unspecified, without bleeding; R10.13 Epigastric pain

== ENCOUNTER 2018-10-12 22:43 | Inpatient (IN) | payer MEDICARE ==
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
--- NOTE | ~2018-10-12 | PN ---
PATIENT:FABIAN CORTEZ MEDICAL RECORD: [id number] LOCATION:ABDULAZIZ Herrera112 ADMISSION DATE: 10/13/18 PROGRESS NOTE DATE OF SERVICE: 10/18/2018 SUBJECTIVE: The patient's case was discussed with staff. She has no new complaint. OBJECTIVE: The patient is in good behavioral control with no suicidal thoughts. Her mood is less labile. Her thoughts are less racing. ASSESSMENT: No change in diagnoses. PLAN: The patient will be discharged today. Followup will be with the [facility] or a private psychiatrist. She will also see her primary care physician. TRANSINT:[id number] Voice Confirmation ID: [id number] DOCUMENT ID: [id number] PAIGE MURPHY MD at 0858 CC: [id number] DICTATION DATE: 10/18/18 1020 TIRE DUSTER: 10/18/18 1135 DIS IN 10/18/18 [facility] [address] [place] [address]
--- NOTE | ~2018-10-12 | DS ---
PATIENT:FABIAN CORTEZ :54 MEDICAL RECORD: [id number] DISCHARGE SUMMARY ADMISSION DATE: 10/13/18 DISCHARGE DATE: 10/18/18 IDENTIFYING DATA: The patient is 68 years old and she is admitted to the hospital on a voluntary basis because of suicidal thoughts. The patient presented to our Emergency Room reporting abdominal pain, anxiety, depressive feelings, and insomnia. She indicated that these symptoms have been going on since she stopped her Klonopin 9 days ago. She denied that she had any thoughts of harming herself, but they are documented by the Emergency Room physician. She has a history of substance abuse and has been admitted to the [facility] in the past. Her physician, who was giving her Klonopin, retired. PAST MEDICAL HISTORY: Significant for diverticulitis, right knee replacement, right hip replacement, degenerative arthritis, hyperlipidemia and irritable bowel syndrome. HOSPITAL COURSE: The patient was admitted to the hospital and fully evaluated from both a medical, psychological, and social standpoint. She, in my opinion, has a long history of mood lability that has been treated with alcohol and benzodiazepines ineffectively. I believe the patient suffers from bipolar disorder. I explained this to her and started her on Depakote. She was not given a benzodiazepine, although she currently is prescribed Restoril by her primary care physician. She showed improvement a very brief amount of time and was subsequently transitioned out of the hospital. DISCHARGE DIAGNOSES: AXIS I: 1. Bipolar disorder type 2, mixed state. 2. History of alcohol abuse. 3. History of benzodiazepine abuse. AXIS II: Deferred. AXIS III: Gastroesophageal reflux disease, diverticulitis, hyperlipidemia. AXIS IV: Moderate psychosocial stressors. AXIS V: Global assessment of functioning is 40. PLAN: At the time of discharge, the patient was in good behavioral control with limited insight about her condition. She was tolerating her medications well. There is no evidence of acute or direct dangerousness. Followup will be with her primary care physician. TRANSINT:[id number] Voice Confirmation ID: [id number] DOCUMENT ID: [id number] PAIGE MURPHY MD CC: [id number] DICTATION DATE: 10/20/18 1226 GRIPS: 10/20/18 2351 DIS IN 10/18/18 [place] [id number] [place] [address]
--- NOTE | ~2018-10-12 | PN ---
PATIENT:FABIAN CORTEZ MEDICAL RECORD: [id number] LOCATION:IngridNadineRICHARD Herrera112 ADMISSION DATE: 10/13/18 PROGRESS NOTE DATE OF SERVICE: 10/15/2018 SUBJECTIVE: The patient's case was discussed with staff. She has no new complaint. OBJECTIVE: The patient is in good behavioral control with limited insight about her condition. She generally tolerates her medicines well. ASSESSMENT: No change in diagnoses. PLAN: The patient is requesting a higher dose of trazodone to assist with sleep consolidation. I am going to increase the dose to 100 mg. She is much less anxious and her racing thoughts have improved. I am going to check a Depakote level tomorrow morning and would anticipate she can reasonably be transitioned out of the hospital soon if this level of improvement continues. TRANSINT:[id number] Voice Confirmation ID: [id number] DOCUMENT ID: [id number] PAIGE MURPHY MD at 1555 CC: [id number] DICTATION DATE: 10/15/18 1003 CAREER SERVICES OFFICER: 10/15/18 1055 ADM IN [place] [id number] [place] [address]
--- NOTE | ~2018-10-12 | PN ---
PATIENT:FABIAN CORTEZ MEDICAL RECORD: [id number] LOCATION:ABDULAZIZ Herrera112 ADMISSION DATE: 10/13/18 PROGRESS NOTE DATE OF SERVICE: 10/14/2018 SUBJECTIVE: The patient's case was discussed with staff. She has no new complaint. OBJECTIVE: The patient is in good behavioral control with limited insight about her condition. She is tolerating her medicines well. She slept well last night. She ate well yesterday. The Vistaril seems to have helped with her anxiety. TRANSINT:[id number] Voice Confirmation ID: [id number] DOCUMENT ID: [id number] PAIGE MURPHY MD at 0924 CC: [id number] DICTATION DATE: 10/14/18 1113 EXPLORATION DRILLER: 10/14/18 1206 ADM IN [place] [address] [place] [address]
--- NOTE | ~2018-10-12 | PN ---
PATIENT:FABIAN CORTEZ MEDICAL RECORD: [id number] LOCATION:ABDULAZIZ Herrera112 ADMISSION DATE: 10/13/18 PROGRESS NOTE DATE OF SERVICE: 10/16/2018 SUBJECTIVE: The patient's case was discussed with staff. She has no new complaint. OBJECTIVE: The patient is in good behavioral control. She is fully oriented and has no thoughts of harming herself. She says she thinks her thought processes are not nearly as rapid and she is focusing better. She has a Depakote level of 101. ASSESSMENT: No change in diagnoses. PLAN: I am going to reduce the patient's Depakote to two-thirds, to 75% of what it currently is. Hopefully, this will bring her Depakote level down into the mid 70s or 80s and I think that would be a much better tolerated dose for her in the long run. She has agreed to go to outpatient psychotherapy and psychiatric care. TRANSINT:[id number] Voice Confirmation ID: [id number] DOCUMENT ID: [id number] PAIGE MURPHY MD at 1443 CC: [id number] DICTATION DATE: 10/16/18 1622 GEAR TOOTH GRINDING MACHINE OPERATOR: 10/16/18 1854 ADM IN [place] [address] [place] [address]
--- NOTE | ~2018-10-12 | PN ---
PATIENT:FABIAN CORTEZ MEDICAL RECORD: [id number] LOCATION:ABDULAZIZ Herrera112 ADMISSION DATE: 10/13/18 PROGRESS NOTE DATE OF SERVICE: 10/17/2018 SUBJECTIVE: The patient's case was discussed with staff. She has no new complaint. OBJECTIVE: The patient is sleeping and eating well. She is going to be transferred out of the hospital tomorrow and will go home with follow up with the [facility] or a private psychiatrist. Her long-term prognosis is guarded. TRANSINT:[id number] Voice Confirmation ID: [id number] DOCUMENT ID: [id number] PAIGE MURPHY MD at 1128 CC: [id number] DICTATION DATE: 10/17/18 1525 CUSTOMER SOLUTIONS TEAMMATE: 10/17/18 1711 ADM IN [facility] [address] [place] [address]
[~2018-10-12 22:43] MED LIST changes: +PHENERGAN25 M1 PO
[2018-10-13 00:11] LABS: BASOPHILS 0.5 % (0-2); EOSINOPHILS 1.2 % (0-7); HEMATOCRIT 39.2 % (36.0-48.0); HEMOGLOBIN 13.7 g/dL (12-16); IMMATURE GRANULOCYTES 0.4 % (0-5); MCH 30.2 pg (26.0-34.0); MCHC 34.9 g/dL (31.0-37.0); MCV 86.5 fL (80.0-100.0); MEAN PLATELET VOLUME 11.4 fL (7.4-10.4); MONOCYTES 6.9 % (2-11); PLATELET COUNT 293 10x3/uL (130-400); RBC 4.53 10x6/uL (4.00-5.40); RDW 12.9 % (11.5-14.5); WBC 8.4 10x3/uL (4.8-10.8)
[2018-10-13 00:29] LABS: ALBUMIN 3.9 g/dL (3.4-5.0); ALKALINE PHOSPHATASE 70 U/L (46-116); ALT (SGPT) 17 U/L (10-68); BILIRUBIN - TOTAL 0.82 mg/dL (0.2-1.3); CALC OSMOLALITY 276 mosm/kg (275-300); CALCIUM 9.7 mg/dL (8.5-10.1); CARBON DIOXIDE 23.8 mmol/L (21.0-32.0); CHLORIDE - SERUM 105 mmol/L (98-107); CREATININE - SERUM 0.6 mg/dL (0.6-1.3); GLUCOSE 104 mg/dL (74-106); MAGNESIUM - SERUM 2.1 mg/dL (1.8-2.4); POTASSIUM - SERUM 3.5 mmol/L (3.5-5.1); PROTEIN - SERUM 7.3 g/dL (6.4-8.2); SODIUM 139 mmol/L (136-145); UREA NITROGEN 10 mg/dL (7-18); eGFR NON AFRICAN AMERICAN > 90 mL/min (90-120)
[2018-10-13 00:39] LABS: APPEARANCE CLEAR (CLEAR); BILIRUBIN NEGATIVE (NEGATIVE); COLOR YELLOW (YELLOW); GLUCOSE NEGATIVE (NEGATIVE); KETONE NEGATIVE (NEGATIVE); NITRITE NEGATIVE (NEGATIVE); PROTEIN NEGATIVE (NEGATIVE); SPECIFIC GRAVITY 1.015 (1.005-1.020); UROBILINOGEN NORMAL (NORMAL)
[2018-10-13 00:54] LABS: UDS - AMPHET NEGATIVE QUAL (NEGATIVE); UDS - BARB NEGATIVE QUAL (NEGATIVE); UDS - BENZO NEGATIVE QUAL (NEGATIVE); UDS - COCAINE NEGATIVE QUAL (NEGATIVE); UDS - OPIATE NEGATIVE QUAL (NEGATIVE); UDS - PCP NEGATIVE QUAL (NEGATIVE); UDS - THC POSITIVE QUAL (NEGATIVE)
[2018-10-13 03:32] VITALS: BP 162/108; BMI 17.1
[2018-10-13 07:45] LABS: CHOL - HDL RATIO 3.2 ratio (2.3-4.1); THYROID STIMULATING HORMONE 1.03 uIU/mL (0.36-3.74)
[2018-10-13 09:58] VITALS: BP 150/81
[2018-10-13 10:31] VITALS: BMI 17.2
[2018-10-13 13:59] VITALS: Wt 51.3 kg
[2018-10-14 06:13] LABS: RAPID PLASMA REAGIN Non Reactive (Non Reactive)
[2018-10-14 08:00] VITALS: BP 119/72
[2018-10-14 08:18] LABS: FOLATE (FOLIC ACID) - SERUM 10.6 ng/mL (>3.0)
[2018-10-14 12:11] LABS: VITAMIN D 25 HYDROXY 19.3 ng/mL (30.0-100.0)
[2018-10-14 19:39] VITALS: BP 138/66
[2018-10-15 07:00] VITALS: BP 125/72
[2018-10-15 14:14] LABS: APPEARANCE CLEAR (CLEAR); BILIRUBIN NEGATIVE (NEGATIVE); COLOR YELLOW (YELLOW); GLUCOSE NEGATIVE (NEGATIVE); KETONE MODERATE mg/dL (NEGATIVE); NITRITE NEGATIVE (NEGATIVE); PROTEIN NEGATIVE (NEGATIVE); UROBILINOGEN NORMAL (NORMAL)
[2018-10-15 14:17] LABS: BACTERIA FEW /hpf (NONE SEEN); EPITHELIAL CELLS 0-5 /hpf (0-5); RED CELLS - URINE 0-5 /hpf (0-5); WHITE CELLS - URINE 0-5 /hpf (0-5)
[2018-10-15 20:41] VITALS: BP 118/53
[2018-10-16 08:00] VITALS: BP 109/68
[2018-10-16 19:33] VITALS: BP 126/74
[2018-10-17 08:00] VITALS: BP 137/75
[2018-10-17] MEDS ORDERED: VISTARIL25 MG PO (15:27)
[2018-10-17] MEDS ORDERED: Depakote DR PO (15:27)
[2018-10-17] MEDS ORDERED: VITAMIN D5000 UNIT PO (15:27)
[2018-10-17] MEDS ORDERED: DEPAKOTE500 MG PO (15:27)
[2018-10-17] MEDS ORDERED: TRAZODONE HCL100 MG PO (15:27)
[2018-10-17] MEDS ORDERED: MEGACE40 MG PO (15:27)
[2018-10-17] MEDS ORDERED: VITAMIN B-121000 MCG PO (15:28)
[2018-10-17 20:04] VITALS: BP 129/60
[2018-10-18 08:00] VITALS: BP 125/64
== END 2018-10-18 14:00 | disposition home or self-care (01) | DRG 885 ==
LOC: D.ER 22:43 → D.PSYCH 10-13 02:01
PROVIDERS: Family Medicine; Psychiatry & Neurology Psychiatry
DX: F31.60 Bipolar disorder, current episode mixed, unspecified (principal); R45.851 Suicidal ideations; K57.92 Diverticulitis of intestine, part unspecified, without perforation or abscess without bleeding; K21.9 Gastro-esophageal reflux disease without esophagitis; E55.9 Vitamin D deficiency, unspecified; E78.5 Hyperlipidemia, unspecified

== ENCOUNTER 2018-12-25 19:15 | Observation (INO) | payer MEDICARE ==
[~2018-12-25] VITALS: Ht 172.7 cm; Wt 60.3 kg
[~2018-12-25 19:15] MED LIST changes: +DEPAKOTE500 MG PO; +Depakote DR PO; +MEGACE40 MG PO; +TRAZODONE HCL100 MG PO; +VISTARIL25 MG PO; +VITAMIN D5000 UNIT PO
[2018-12-25] MEDS ORDERED: DEPAKOTE500 MG PO (19:24)
[2018-12-25 21:26] LABS: BASOPHILS 0.8 % (0-2); EOSINOPHILS 1.5 % (0-7); HEMATOCRIT 39.5 % (36.0-48.0); HEMOGLOBIN 13.3 g/dL (12-16); IMMATURE GRANULOCYTES 0.2 % (0-5); LYMPHOCYTES 32.2 % (15-50); MCH 29.1 pg (26.0-34.0); MCHC 33.7 g/dL (31.0-37.0); MCV 86.4 fL (80.0-100.0); MEAN PLATELET VOLUME 10.4 fL (7.4-10.4); MONOCYTES 4.7 % (2-11); NEUTROPHILS 60.6 % (40-80); RBC 4.57 10x6/uL (4.00-5.40); RDW 13.2 % (11.5-14.5); WBC 12.7 10x3/uL (4.8-10.8)
[2018-12-25 21:27] LABS: PLATELET COUNT 471 10x3/uL (130-400)
[2018-12-25 21:37] LABS: APTT 29.6 SECONDS (22.8-39.4); INR 1.06 (0.85-1.17); PROTIME 13.3 SECONDS (11.6-15.0)
[2018-12-25 21:42] LABS: ALBUMIN 3.3 g/dL (3.4-5.0); ALKALINE PHOSPHATASE 95 U/L (46-116); ALT (SGPT) 17 U/L (10-68); CALC OSMOLALITY 278 mosm/kg (275-300); CALCIUM 9.2 mg/dL (8.5-10.1); CARBON DIOXIDE 23.9 mmol/L (21.0-32.0); CHLORIDE - SERUM 105 mmol/L (98-107); CREATININE - SERUM 0.7 mg/dL (0.6-1.3); GLUCOSE 98 mg/dL (74-106); POTASSIUM - SERUM 4.1 mmol/L (3.5-5.1); PROTEIN - SERUM 7.7 g/dL (6.4-8.2); SODIUM 140 mmol/L (136-145); UREA NITROGEN 12 mg/dL (7-18); eGFR NON AFRICAN AMERICAN 89 mL/min (90-120)
[2018-12-25 21:54] LABS: CREATINE KINASE 44 UL (21-215); PRO BNP 756 pg/mL (0-125); TROPONIN-I < 0.017 ng/mL (0.000-0.060)
--- NOTE | 2018-12-25 22:35 | NUR ---
NON PRODUCTIVE COUGH X 2 WEEKS. VOMITING X 2 DAYS. DIARRHEA X 2 DAYS. "I AM UNABLE TO KEEP LIQUIDS DOWN. DECREASED APPETITE. LUNG SOUNDS SNORING AND WHEEZING BILATERALLY LOWER LOBES.
[2018-12-26] VITALS (8 sets, daily range): BP systolic 107–127; BP diastolic 51–78; BMI 20.2
--- NOTE | 2018-12-26 00:01 | NUR ---
PATIENT AWAKE AND ALERT. COLOR WNL FOR RACE. RESPIRATIONS EVEN AND UNLABORED. NO NEEDS NOTED. UPDATED ON PLAN OF CARE AND DELAYS IN CARE. WILL CONTINUE TO MONITOR.
--- NOTE | 2018-12-26 01:00 | NUR ---
PATIENT APPEARS TO BE SLEEPING. RESPIRATIONS EVEN AND UNLABORED. COLOR WNL FOR RACE. NO DISTRESS NOTED. WILL CONTINUE TO MONITOR.
[2018-12-26] MEDS ORDERED: DEPAKOTE500 MG PO (01:36)
[2018-12-26] MEDS ORDERED: GABAPENTIN100 MG PO ×2 (01:37→01:38)
[2018-12-26] MEDS ORDERED: BUSPAR5 MG PO (01:39)
--- NOTE | 2018-12-26 02:00 | NUR ---
ROCEPHIN IV INFUSION COMPLETE AND STOPPED.
--- NOTE | 2018-12-26 03:00 | NUR ---
PATIENT APPEARS TO BE SLEEPING. NO DISTRESS NOTED. WILL CONTINUE TO MONITOR.
--- NOTE | 2018-12-26 04:25 | NUR ---
PATIENT APPEARS TO BE SLEEPING. RESPIRATIONS EVEN AND UNLABORED. NO DISTRESS NOTED. WILL CONTINUE TO MONITOR.
--- NOTE | 2018-12-26 05:02 | NUR ---
PATIENT AWAKE AND ALERT. C/O PAIN 08/16. WILL GIVE HER ORDERED PAIN MEDICATION @ 0530. UPDATED ON PLAN OF CARE AND DELAYS IN CARE. WILL CONTINUE TO MONITOR.
[2018-12-26 07:07] LABS: BASOPHILS 0.5 % (0-2); EOSINOPHILS 1.6 % (0-7); HEMATOCRIT 38.8 % (36.0-48.0); HEMOGLOBIN 12.7 g/dL (12-16); IMMATURE GRANULOCYTES 0.3 % (0-5); LYMPHOCYTES 33.8 % (15-50); MCH 28.9 pg (26.0-34.0); MCHC 32.7 g/dL (31.0-37.0); MCV 88.2 fL (80.0-100.0); MEAN PLATELET VOLUME 10.7 fL (7.4-10.4); MONOCYTES 7.7 % (2-11); NEUTROPHILS 56.1 % (40-80); PLATELET COUNT 422 10x3/uL (130-400); RDW 13.4 % (11.5-14.5); WBC 11.2 10x3/uL (4.8-10.8)
[2018-12-26 07:31] LABS: ALKALINE PHOSPHATASE 121 U/L (46-116); BILIRUBIN - TOTAL 0.54 mg/dL (0.2-1.3); CALC OSMOLALITY 282 mosm/kg (275-300); CALCIUM 8.8 mg/dL (8.5-10.1); CARBON DIOXIDE 25.6 mmol/L (21.0-32.0); CHLORIDE - SERUM 107 mmol/L (98-107); CKMB 1.9 U/L (0.0-3.6); CREATINE KINASE 28 UL (21-215); CREATININE - SERUM 0.7 mg/dL (0.6-1.3); GLUCOSE 90 mg/dL (74-106); MAGNESIUM - SERUM 2.1 mg/dL (1.8-2.4); POTASSIUM - SERUM 3.8 mmol/L (3.5-5.1); PROTEIN - SERUM 7.1 g/dL (6.4-8.2); SODIUM 142 mmol/L (136-145); UREA NITROGEN 13 mg/dL (7-18); eGFR NON AFRICAN AMERICAN 89 mL/min (90-120)
[2018-12-26 07:33] LABS: ALT (SGPT) 94 U/L (10-68); TROPONIN-I < 0.017 ng/mL (0.000-0.060)
--- NOTE | 2018-12-26 13:23 | NUR ---
PT ARRIVED TO UNIT IN ROOM 1206 FROM THE ER, ORIENTED TO ROOM CL IN RE[place]
[2018-12-26 18:14] LABS: % SATURATION 17 % (15-55); IRON 49 ug/dl (35-150); TOTAL IRON BIND CAPACITY 284 ug/dl (260-445); UNSAT IRON BIND CAPACITY 235 ug/dl (150-375)
--- NOTE | 2018-12-26 18:30 | NUR ---
MANAGER RADIO COMPLETE. DENIES NEEDS AT THIS TIME. NO SIGNS OF DISTRESS NOTED. CL IN REACH
[2018-12-26 19:30] LABS: CKMB 1.5 U/L (0.0-3.6); CREATINE KINASE 31 UL (21-215)
[2018-12-26 19:33] LABS: TROPONIN-I < 0.017 ng/mL (0.000-0.060)
--- NOTE | 2018-12-26 21:13 | NUR ---
UP AD BARBIE IN ROOM. NO DISTRESS NOTED. RESP UNLABORED. IV INFUSING TO JAZMIN MIDLINE WITHOUT REDNESS OR EDEMA NOTED. CL IN REACH
[2018-12-27 00:41] LABS: CKMB 1.5 U/L (0.0-3.6); CREATINE KINASE 29 UL (21-215); TROPONIN-I < 0.017 ng/mL (0.000-0.060)
[2018-12-27 04:50] LABS: BASOPHILS 0.6 % (0-2); EOSINOPHILS 3.5 % (0-7); HEMATOCRIT 35.5 % (36.0-48.0); HEMOGLOBIN 11.5 g/dL (12-16); IMMATURE GRANULOCYTES 0.1 % (0-5); LYMPHOCYTES 41.5 % (15-50); MCH 29.1 pg (26.0-34.0); MCHC 32.4 g/dL (31.0-37.0); MCV 89.9 fL (80.0-100.0); MEAN PLATELET VOLUME 10.6 fL (7.4-10.4); MONOCYTES 5.2 % (2-11); NEUTROPHILS 49.1 % (40-80); PLATELET COUNT 351 10x3/uL (130-400); RBC 3.95 10x6/uL (4.00-5.40); RDW 13.8 % (11.5-14.5)
[2018-12-27 04:58] LABS: WBC 7.1 10x3/uL (4.8-10.8)
--- NOTE | 2018-12-27 05:00 | NUR ---
EYES CLOSED RESPIRATIONS WITH EASE AND UNLABORED.
[2018-12-27 05:16] LABS: ALBUMIN 2.6 g/dL (3.4-5.0); ALKALINE PHOSPHATASE 100 U/L (46-116); ALT (SGPT) 74 U/L (10-68); BILIRUBIN - TOTAL 0.24 mg/dL (0.2-1.3); CALC OSMOLALITY 285 mosm/kg (275-300); CALCIUM 8.5 mg/dL (8.5-10.1); CARBON DIOXIDE 27.3 mmol/L (21.0-32.0); CHLORIDE - SERUM 110 mmol/L (98-107); CKMB 1.4 U/L (0.0-3.6); CREATINE KINASE 25 UL (21-215); CREATININE - SERUM 0.6 mg/dL (0.6-1.3); GLUCOSE 103 mg/dL (74-106); PROTEIN - SERUM 6.3 g/dL (6.4-8.2); SODIUM 144 mmol/L (136-145); TROPONIN-I < 0.017 ng/mL (0.000-0.060); UREA NITROGEN 10 mg/dL (7-18); eGFR NON AFRICAN AMERICAN > 90 mL/min (90-120)
[2018-12-27 05:19] LABS: POTASSIUM - SERUM 4.4 mmol/L (3.5-5.1)
[2018-12-27 06:05] VITALS: BP 124/74
[2018-12-27 08:17] VITALS: BP 122/63
--- NOTE | 2018-12-27 10:07 | NUR ---
PT ALERT X 4. INSPIRATORY AND EXPIRATORY WHEEZES TO ALL ABRAMS. TELEMETRY IN PLACE. MIDLINE TO LEFT UPPER ARM, PATENT, DRESSING CLEAN DRY AND INTACT. PT REPORTING PAIN OF 10/10, MEDICATED PER ORDERS, WILL MONITOR. BED LOW, CALL LIGHT IN REACH. NO OTHER NEEDS AT THIS TIME.
[2018-12-27 10:17] VITALS: Ht 172.7 cm; Wt 60.3 kg
[2018-12-27 12:39] VITALS: BP 111/62
[2018-12-27] MEDS ORDERED: FLORAJEN3 CAPS460 MG PO (15:41)
[2018-12-27] MEDS ORDERED: TESSALON PERLE100 MG PO (15:41)
[2018-12-27] MEDS ORDERED: MUCINEX600 MG PO (15:41)
[2018-12-27] MEDS ORDERED: OMNICEF300 MG PO (15:41)
[2018-12-27] MEDS ORDERED: ALBUTEROL2.5 MG/3 M INH (15:42)
[2018-12-27] MEDS ORDERED: PREDNISONE10 MG PO ×2 (15:42→15:45)
[2018-12-27] MEDS ORDERED: ZOFRAN ODT4 MG/UDTAB PO (15:43)
[2018-12-27 15:45] VITALS: BP 127/59
--- NOTE | 2018-12-27 16:50 | NUR ---
OK TO DISCHARGE HOME PER DR. SHAH. HE STATED TO SCHEDULE FOLLOW UP SO THEY CAN PLAN FOR ECHO.
--- NOTE | 2018-12-27 17:37 | MORECARE ---
CASE MANAGEMENT DISCHARGE SUMMARY PATIENT: FABIAN CORTEZ UNIT: [id number] ADM DATE: 12/26/18 AGE: 68 : 52 SEX: F ROOM/BED: D.2206 AUTHOR: ONEIL SIU PHYSICIAN: REFERRING PHYSICIAN: CLAUDIO MCRAE MD DATE OF SERVICE: 12/27/18 Discharge Plan Patient Name: FABIAN CORTEZ Facility: [facility]:[place] : 1950 Planned Disposition: Home Anticipated Discharge Date: Discharge Date: Expected LOS: Initial Reviewer: [email or web address] Initial Review Date: 12/26/2018 Generated: 12/27/18 6:37 pm Patient Name: FABIAN CORTEZ Page 03693 at 1732 All edits/amendments must be made on the electronic document DICTATION DATE: 12/27/181736 HEALTH AND NUTRITION SPECIALIST: FELICITA 12/27/181736 RPT#: [id number] DC DATE: STATUS: ADM IN [facility] [address] [place] [address] END OF REPORT
--- NOTE | 2018-12-27 18:41 | NUR ---
DISCHARGE PAPERWORK SIGNED, ALL QUESTIONS ANSWERED. MIDLINE TO UPPER LEFT ARM DC'D PRESSURE DRESSING APPLIED. PT DECLINED WHEELCHAIR ESCORT OUT. PT NOT HAPPY ABOUT DISCHARGE.
--- NOTE | 2018-12-28 15:42 | MORECARE ---
CASE MANAGEMENT DISCHARGE SUMMARY PATIENT: FABIAN CORTEZ UNIT: [id number] ADM DATE: 12/26/18 AGE: 68 : 52 SEX: F ROOM/BED: D.2206 AUTHOR: ONEIL SIU PHYSICIAN: REFERRING PHYSICIAN: CLAUDIO MCRAE MD DATE OF SERVICE: 12/28/18 Discharge Plan Patient Name: FABIAN CORTEZ Facility: [facility]:[place] : 1950 Planned Disposition: Home Anticipated Discharge Date: Discharge Date: 12/27/2018 Expected LOS: Initial Reviewer: [email or web address] Initial Review Date: 12/26/2018 Generated: 12/28/18 4:42 pm Comments DCP- Discharge Planning Updated by [email or web address]: Lissett De Paz on 12/27/18 4:[address] SPOKE WITH PATIENT AT LENGTH WITH HER SISTER AT BEDSIDE ABOUT DISCHARGING TODAY, SHE STATED THAT NO ONE TOLD HER SHE WAS BEING DISCHARGED, I TRIED TO EXPLAIN TO HER THAT SHE HAS BEEN IN OBS STATUS SINCE SHE WAS AT THE HOSPITAL AND SHE DID NOT WANT TO HEAR ANYTHING I HAD TO SAY, SHE WAS CURSING AND STATED THAT SHE WANTED TO GET THE HELL OUT OF HERE. I ATTEMPTED TO CALL TAMMY BUT SHE DID NOT ANSWER. HER SISTER WILL TAKE HER HOME, OR SHE WAS GOING TO CALL [facility] TO GET HER. Last DP export: 12/27/18 4:37 p Patient Name: FABIAN CORTEZ Page 47017 at 1542 All edits/amendments must be made on the electronic document DICTATION DATE: 12/28/18 1541 MILLINERY WORKER: FELICITA 12/28/18 1541 RPT#: [id number] DC DATE:12/27/18 STATUS: DIS IN [facility] [address] [place] [address] END OF REPORT
--- NOTE | 2018-12-28 15:46 | NUR ---
SPOKE WITH PATIENT AT LENGTH WITH HER SISTER AT BEDSIDE ABOUT DISCHARGING TODAY, SHE STATED THAT NO ONE TOLD HER SHE WAS BEING DISCHARGED, I TRIED TO EXPLAIN TO HER THAT SHE HAS BEEN IN OBS STATUS SINCE SHE WAS AT THE HOSPITAL AND SHE DID NOT WANT TO HEAR ANYTHING I HAD TO SAY, SHE WAS CURSING AND STATED THAT SHE WANTED TO GET THE HELL OUT OF HERE. I ATTEMPTED TO CALL TAMMY BUT SHE DID NOT ANSWER. HER SISTER WILL TAKE HER HOME, OR SHE WAS GOING TO CALL [facility] TO GET HER.
--- NOTE | 2019-01-02 17:03 | MORECARE ---
CASE MANAGEMENT DISCHARGE SUMMARY PATIENT: FABIAN CORTEZ UNIT: [id number] ADM DATE: 12/26/18 AGE: 68 : 54 SEX: F ROOM/BED: D.2206 AUTHOR: ONEIL SIU PHYSICIAN: REFERRING PHYSICIAN: CLAUDIO MCRAE MD DATE OF SERVICE: 01/02/19 Discharge Plan Patient Name: FABIAN CORTEZ Facility: [facility]:[place] : 1950 Planned Disposition: Home Anticipated Discharge Date: Discharge Date: 12/27/2018 Expected LOS: 0 Initial Reviewer: [email or web address] Initial Review Date: 12/26/2018 Generated: 01/02/19 6:03 pm Comments DCP- Discharge Planning Updated by [email or web address]: Lissettcherie De Paz on 12/27/18 4:[address] SPOKE WITH PATIENT AT LENGTH WITH HER SISTER AT BEDSIDE ABOUT DISCHARGING TODAY, SHE STATED THAT NO ONE TOLD HER SHE WAS BEING DISCHARGED, I TRIED TO EXPLAIN TO HER THAT SHE HAS BEEN IN OBS STATUS SINCE SHE WAS AT THE HOSPITAL AND SHE DID NOT WANT TO HEAR ANYTHING I HAD TO SAY, SHE WAS CURSING AND STATED THAT SHE WANTED TO GET THE HELL OUT OF HERE. I ATTEMPTED TO CALL TAMMY BUT SHE DID NOT ANSWER. HER SISTER WILL TAKE HER HOME, OR SHE WAS GOING TO CALL [facility] TO GET HER. Last DP export: 12/28/18 2:42 p Patient Name: FABIAN CORTEZ Page 12691 at 1703 All edits/amendments must be made on the electronic document DICTATION DATE: 01/02/191701 BILLBOARD POSTER HELPER: FELICITA 01/02/191701 RPT#: [id number] DC DATE:12/27/18 STATUS: DIS IN [facility] [address] [place] [address] END OF REPORT
== END 2018-12-27 18:43 | disposition home or self-care (01) ==
LOC: D.ER 19:15 → OBSVTIME 12-26 00:41 → D.EDHOLD 12-26 00:41 → D.MS 12-26 00:41 → D.EDHOLD 12-26 00:41 → D.MS 12-26 12:37
PROVIDERS: Family Medicine; ADMIT Family Medicine
DX: J20.9 Acute bronchitis, unspecified (principal); J44.1 Chronic obstructive pulmonary disease with (acute) exacerbation; E86.0 Dehydration; K58.9 Irritable bowel syndrome, unspecified; K92.0 Hematemesis; F31.9 Bipolar disorder, unspecified; J44.0 Chronic obstructive pulmonary disease with (acute) lower respiratory infection; E53.8 Deficiency of other specified B group vitamins; E55.9 Vitamin D deficiency, unspecified

== ENCOUNTER 2019-01-22 09:02 | Day surgery (SDC) | payer MEDICARE ==
[~2019-01-22] VITALS: Ht 172.7 cm; Wt 61.2 kg
[~2019-01-22 09:02] MED LIST changes: +ALBUTEROL2.5 MG/3 M INH; +BUSPAR5 MG PO; +FLORAJEN3 CAPS460 MG PO; +GABAPENTIN100 MG PO; +MUCINEX600 MG PO; +OMNICEF300 MG PO; +PREDNISONE10 MG PO; +TESSALON PERLE100 MG PO
[2019-01-22 09:44] LABS: HEMATOCRIT 41.4 % (36.0-48.0); HEMOGLOBIN 13.5 g/dL (12-16); MCH 29.5 pg (26.0-34.0); MCHC 32.6 g/dL (31.0-37.0); MCV 90.4 fL (80.0-100.0); MEAN PLATELET VOLUME 11.7 fL (7.4-10.4); RBC 4.58 10x6/uL (4.00-5.40); RDW 14.4 % (11.5-14.5); WBC 7.8 10x3/uL (4.8-10.8)
[2019-01-22 09:58] VITALS: BP 120/67; Ht 172.7 cm; Wt 61.2 kg
[2019-01-22] MEDS ORDERED: HYDROCODON-ACE1 EA10 PO (12:38)
--- NOTE | 2019-01-22 13:04 | NUR ---
VANCOMYCIN 1 GRAM IN 250CC OF NORMAL SALINE INFUSING ON ADMIT
--- NOTE | 2019-01-24 11:12 | OP ---
PATIENT NAME: FABIAN CORTEZ MEDICAL RECORD: [id number] :54 LOCATION:D.OPS ADMISSION DATE: SURGEON: MECCA THOMAS MD DATE OF OPERATION: 01/22/2019 PREOPERATIVE DIAGNOSIS: Rotator cuff tear of the left shoulder with impingement syndrome. POSTOPERATIVE DIAGNOSIS: Rotator cuff tear of the left shoulder with impingement syndrome. PROCEDURE: 1. Arthroscopic rotator cuff repair of the left shoulder. 2. Arthroscopic distal clavicle excision done through separate incision -- 1 cm. 3. Arthroscopic subacromial decompression, acromioplasty, and bursectomy. SURGEON: Mecca Thomas MD FIRST ASSISANT: Deshaun Lee. INTRAOPERATIVE COMPLICATIONS: None. SUMMARY OF PATHOLOGIC FINDINGS: The patient did have a full thickness rotator cuff tear and some labral tearing was noted. Downward sloping acromion with excoriation of the coracoacromial ligament was also noted along with grade IV chondromalacia of the acromioclavicular joint. OPERATIVE SUMMARY IN DETAIL: After obtaining the appropriate preoperative orthopedic surgery consent as well as anesthetic consultation, evaluation and clearance, the patient was brought to the operating room and placed on the operating table in supine position. After general laryngeal mask airway was administered, the patient was placed in right lateral decubitus position. All pressure points were well padded to include down leg peroneal pad as well as axillary roll. The patient was held firmly to the operating table using vacuum pack suction system. Left upper extremity and shoulder were then prepped and draped in routine sterile fashion. The arm was held in the Arthrex traction boom in 30 degrees of forward flexion, 30 degrees of abduction, 10 pounds of traction laterally. Arthroscopy was established in the glenohumeral joint from the posterior portal. Anterior portal was established from the anterior safe interval. Diagnostic arthroscopy revealed the patient had mild labral fraying, which was gently excised. Grade II and III chondromalacia was seen on the glenoid surface. Attention was then turned to the rotator cuff tear itself. Transrotator cuff portal was created for decortication of the supraspinatus tendinous footprint as well as takedown portions of torn rotator cuff. Attention was then turned to subacromial space. While on subacromial space, Woodland tissue ablation system was utilized to denude the undersurface of the acromion of all soft tissue elements and release the coracoacromial ligament. A 5-0 barrel bur was then used for perform acromioplasty at the level of acromioclavicular joint. Under separate arthroscopic portal, under direct arthroscopic visualization, distal clavicle was excised for 2 cm. Having completed this, attention was turned to the rotator cuff. Further decortication as well as a rotator cuff debridement was then followed by a single inverted #2 FiberTape and anchored laterally with a 5.5 SwiveLock from Arthrex completing the SpeedBridge. Having completed this, arthroscopy portals were closed in OPERATIVE REPORT [id number] FABIAN CORTEZ routine interrupted fashion by Deshaun Lee. Sterile dressings were applied. A shoulder sling immobilizer was applied. The patient was then awakened and taken to recovery room in stable condition. All final needle and sponge counts were correct. TRANSINT:[id number] Voice Confirmation ID: [id number] DOCUMENT ID: [id number] MARTHA FORTUNE, MECCA BIGGS at 1112 CC: [id number] DICTATION DATE: 01/22/19 1408 ROUND KILN DRAWER: 01/22/19 1524 [facility] 01/22/19 [place] [place] [address]
== END 2019-01-22 15:45 | disposition home or self-care (01) ==
LOC: D.OPS 09:02 → D.PAN 14:00 → D.OPS 14:00
PROVIDERS: Anesthesiology; ATTEND Orthopaedic Surgery
DX: M75.122 Complete rotator cuff tear or rupture of left shoulder, not specified as traumatic (principal); M75.42 Impingement syndrome of left shoulder; Z01.812 Encounter for preprocedural laboratory examination

== ENCOUNTER 2019-01-30 11:40 | Inpatient (IN) | payer MEDICARE ==
[~2019-01-30] VITALS: Ht 172.7 cm; Wt 61.2 kg
[~2019-01-30 11:40] MED LIST changes: +HYDROCODON-ACE1 EA10 PO
--- NOTE | 2019-01-30 12:15 | NUR ---
PATIENT RECIEVED DIRECT ADMIT FROM DR MCMILLAN OFFICE FOR POSSIBLE SBO. PATIENT REPORTS NO BM FOR 4-5 DAYS AND DENIES PASSING GAS. BS HYPOACTIVE TO RIGHT LOWER AND UPPER QUADS, HYPERACTIVE TO LEFT QUADS. PATIENT REPORTS MILD TENDERNESS TO LEFT LOWER ABDOMINAL QUADRANT. PATIENT IS S/P SHOULDER REPAIR TWO WEEKS AGO WITH STERI STRIPS INTACT. PATIENT REPORTS SEVERE SHARP PAIN TO SHOULDER AND CONSTANTLY REQUEST PAIN MEDICATION. EXPLAINED TO HER THAT PER IAM DR THOMAS DOES NOT WANT HER TO HAVE ANY FORM OF PAIN MEDICAION UNTIL SEEN BY DR CORBETT.
[2019-01-30 13:56] LABS: BASOPHILS 0.3 % (0-2); EOSINOPHILS 0.7 % (0-7); HEMATOCRIT 36.3 % (36.0-48.0); HEMOGLOBIN 11.6 g/dL (12-16); IMMATURE GRANULOCYTES 0.2 % (0-5); LYMPHOCYTES 19.8 % (15-50); MCV 90.8 fL (80.0-100.0); MEAN PLATELET VOLUME 10.9 fL (7.4-10.4); RDW 14.3 % (11.5-14.5); WBC 8.8 10x3/uL (4.8-10.8)
[2019-01-30 14:05] LABS: CALC OSMOLALITY 280 mosm/kg (275-300); CALCIUM 8.9 mg/dL (8.5-10.1); CARBON DIOXIDE 25.6 mmol/L (21.0-32.0); CHLORIDE - SERUM 106 mmol/L (98-107); CREATININE - SERUM 0.6 mg/dL (0.6-1.3); GLUCOSE 103 mg/dL (74-106); PLATELET COUNT 295 10x3/uL (130-400); POTASSIUM - SERUM 4.1 mmol/L (3.5-5.1); SODIUM 141 mmol/L (136-145); UREA NITROGEN 12 mg/dL (7-18); eGFR NON AFRICAN AMERICAN > 90 mL/min (90-120)
[2019-01-30 15:57] VITALS: BP 151/85; BMI 20.5
[2019-01-30 16:46] VITALS: BP 157/81
--- NOTE | 2019-01-30 19:35 | NUR ---
PT RESTING IN BED. ALERT AND ORIENTED. NO SIGNS OF DISTRESS. BREATHING EVEN AND UNLABORED. IV SITE RT UPPER ARM MIDLINE CATH DRESSING CLEAN DRY AND INTACT. NO SIGNS OF INFECTION. LT ARM SLING. BOWEL SOUNDS HYPOACTIVE RT LOWER QUAD. NO LOWER LEG SWELLING PRESENT. WILL CONTINUE PLAN OF CARE. CALL LIGHT IN REACH. BED LOWERED AND LOCKED. BED RAILS UP X1.
[2019-01-30 20:54] VITALS: BP 160/95
[2019-01-31 00:54] VITALS: BP 177/82
[2019-01-31 05:01] VITALS: BP 192/90
--- NOTE | 2019-01-31 05:21 | NUR ---
PT IN BED IN LOW FOWLERS POSIITON. RESPIRATIONS EVEN AND UNLABORED NO VISUAL CUES OF DISTRESS NOTED. DENIES ANY OTHER NEEDS AT THIS TIME. BED LOW, SIDE RAILS UP X2. CALL LIGHTI IN [facility]. WILL CONTINUE TO MONITOR.
[2019-01-31 07:00] LABS: CALC OSMOLALITY 274 mosm/kg (275-300); CALCIUM 8.5 mg/dL (8.5-10.1); CARBON DIOXIDE 22.6 mmol/L (21.0-32.0); CHLORIDE - SERUM 103 mmol/L (98-107); CREATININE - SERUM 0.6 mg/dL (0.6-1.3); GLUCOSE 94 mg/dL (74-106); POTASSIUM - SERUM 3.6 mmol/L (3.5-5.1); SODIUM 138 mmol/L (136-145); UREA NITROGEN 9 mg/dL (7-18); eGFR NON AFRICAN AMERICAN > 90 mL/min (90-120)
[2019-01-31 07:42] LABS: BASOPHILS 0.3 % (0-2); EOSINOPHILS 1.4 % (0-7); HEMATOCRIT 34.9 % (36.0-48.0); HEMOGLOBIN 11.4 g/dL (12-16); IMMATURE GRANULOCYTES 0.3 % (0-5); LYMPHOCYTES 21.2 % (15-50); MCH 28.8 pg (26.0-34.0); MCHC 32.7 g/dL (31.0-37.0); MEAN PLATELET VOLUME 12.1 fL (7.4-10.4); MONOCYTES 10.4 % (2-11); NEUTROPHILS 66.4 % (40-80); PLATELET COUNT 254 10x3/uL (130-400); RBC 3.96 10x6/uL (4.00-5.40); RDW 14.2 % (11.5-14.5); WBC 7.9 10x3/uL (4.8-10.8)
[2019-01-31 07:46] LABS: MCV 88.1 fL (80.0-100.0)
[2019-01-31 08:30] VITALS: BP 159/77
[2019-01-31 12:24] VITALS: Ht 172.7 cm; Wt 61.2 kg
[2019-01-31 13:03] VITALS: BP 187/100
[2019-01-31 14:45] VITALS: BP 148/79
[2019-01-31 20:10] VITALS: BP 155/82
[2019-02-01 01:01] VITALS: BP 148/80
--- NOTE | 2019-02-01 03:10 | NUR ---
Resting in bed with T.V. on , no needs noted or stated
[2019-02-01 04:45] VITALS: BP 113/79
[2019-02-01 05:07] LABS: BASOPHILS 0.3 % (0-2); EOSINOPHILS 1.7 % (0-7); HEMATOCRIT 32.2 % (36.0-48.0); HEMOGLOBIN 10.3 g/dL (12-16); MCH 28.5 pg (26.0-34.0); MEAN PLATELET VOLUME 10.6 fL (7.4-10.4); MONOCYTES 12.3 % (2-11); NEUTROPHILS 56.7 % (40-80); PLATELET COUNT 302 10x3/uL (130-400); RBC 3.62 10x6/uL (4.00-5.40); RDW 14.2 % (11.5-14.5); WBC 6.4 10x3/uL (4.8-10.8)
[2019-02-01 05:21] LABS: CALC OSMOLALITY 276 mosm/kg (275-300); CARBON DIOXIDE 25.3 mmol/L (21.0-32.0); CHLORIDE - SERUM 106 mmol/L (98-107); CREATININE - SERUM 0.5 mg/dL (0.6-1.3); GLUCOSE 100 mg/dL (74-106); POTASSIUM - SERUM 3.7 mmol/L (3.5-5.1); SODIUM 140 mmol/L (136-145); UREA NITROGEN 7 mg/dL (7-18); eGFR NON AFRICAN AMERICAN > 90 mL/min (90-120)
[2019-02-01 09:23] VITALS: BP 146/90
[2019-02-01 12:22] VITALS: BP 148/78
[2019-02-01 17:53] VITALS: BP 150/83
[2019-02-01 21:57] VITALS: BP 121/63
[2019-02-02 05:05] VITALS: BP 147/77
[2019-02-02 05:38] LABS: BASOPHILS 0.4 % (0-2); HEMATOCRIT 29.6 % (36.0-48.0); HEMOGLOBIN 9.9 g/dL (12-16); IMMATURE GRANULOCYTES 0.5 % (0-5); LYMPHOCYTES 47.5 % (15-50); MCH 28.7 pg (26.0-34.0); MCHC 33.4 g/dL (31.0-37.0); MEAN PLATELET VOLUME 12.1 fL (7.4-10.4); MONOCYTES 8.5 % (2-11); NEUTROPHILS 41.1 % (40-80); RBC 3.45 10x6/uL (4.00-5.40); RDW 14.1 % (11.5-14.5); WBC 5.5 10x3/uL (4.8-10.8)
[2019-02-02 05:40] LABS: MCV 85.8 fL (80.0-100.0); PLATELET COUNT 152 10x3/uL (130-400)
[2019-02-02 05:57] LABS: CALC OSMOLALITY 278 mosm/kg (275-300); CALCIUM 8.7 mg/dL (8.5-10.1); CHLORIDE - SERUM 108 mmol/L (98-107); CREATININE - SERUM 0.7 mg/dL (0.6-1.3); GLUCOSE 95 mg/dL (74-106); POTASSIUM - SERUM 4.4 mmol/L (3.5-5.1); SODIUM 141 mmol/L (136-145); UREA NITROGEN 8 mg/dL (7-18); eGFR NON AFRICAN AMERICAN 89 mL/min (90-120)
--- NOTE | 2019-02-02 08:12 | NUR ---
ALERT AND ORIENTED SITTING UP IN SIMIFOWLER POSITION SLING INTACT TO LT. SHOULDER. PT C/O PIN WITHOUT ANY FACIAL GRIMACING NOTED. IVF TO RUE MIDLINE AND INTACT AT PRESCRIBED RATE. ENCOURAGED TO USE CALL LIGHT FOR ASSIST.
[2019-02-02 09:30] VITALS: BP 152/80
[2019-02-02] MEDS ORDERED: COLACE100 MG PO (10:52)
[2019-02-02] MEDS ORDERED: ZOFRAN ODT4 MG/UDTAB PO (10:52)
[2019-02-02] MEDS ORDERED: PERCOCET 10-321 EAC1 PO (10:52)
[2019-02-02] MEDS ORDERED: MIRALAX17 GM PO (10:52)
--- NOTE | 2019-02-02 12:11 | MORECARE ---
CASE MANAGEMENT DISCHARGE SUMMARY PATIENT: FABIAN CORTEZ UNIT: [id number] ADM DATE: 01/30/19 AGE: 68 : 52 SEX: F ROOM/BED: D.2212 AUTHOR: ONEIL SIU PHYSICIAN: REFERRING PHYSICIAN: MECCA THOMAS MD DATE OF SERVICE: 02/02/19 Discharge Plan Patient Name: FABIAN CORTEZ Facility: [facility]:[place] : 1950 Planned Disposition: Home Anticipated Discharge Date: Discharge Date: Expected LOS: Initial Reviewer: [email or web address] Initial Review Date: 01/30/2019 Generated: 02/02/19 1:11 pm Patient Name: FABIAN CORTEZ Page 65384 at 1211 All edits/amendments must be made on the electronic document DICTATION DATE: 02/02/19 1210 NASCAR DRIVER: FELICITA 02/02/19 1210 RPT#: [id number] DC DATE: STATUS: ADM IN [facility] [address] [place] [address] END OF REPORT
--- NOTE | 2019-02-02 12:18 | MORECARE ---
CASE MANAGEMENT DISCHARGE SUMMARY PATIENT: FABIAN CORTEZ UNIT: [id number] ADM DATE: 01/30/19 AGE: 68 : 52 SEX: F ROOM/BED: D.6139 AUTHOR: ONEIL SIU PHYSICIAN: REFERRING PHYSICIAN: MECCA THOMAS MD DATE OF SERVICE: 02/02/19 Discharge Plan Patient Name: FABIAN CORTEZ Facility: [facility]:[place] : 1950 Planned Disposition: Home Anticipated Discharge Date: Discharge Date: Expected LOS: Initial Reviewer: [email or web address] Initial Review Date: 01/30/2019 Generated: 02/02/19 1:18 pm Comments DCP- Discharge Planning Updated by [email or web address]: Lissett De Paz on 02/02/19 11:[address] Patient Name: FABIAN CORTEZ Admission Status: Urgent Accout number: [id number] Admission Date: 01-30-2019 : 1950 Admission Diagnosis:ILEUS, UNSPECIFIED Attending: MECCA THOMAS Current LOS: 3 Anticipated DC Date: Planned Disposition: Home Primary Insurance: MEDICARE A & B Discharge Planning Comments: CM met with patient to complete initial dc planning assessment. CM educated patient on the CM role and verbal consent given by patient to complete assessment. Patient lives at home with her boyfriend where she is independent with her care. At discharge patient plans to return home and feels this is a safe discharge. CM discussed availability of home health, rehab services, and medical equipment. She has an order for OP PT at [facility] in [place]. I attempted to call and make her appointment, but they are closed on Fridays. I have given the patient a copy of the order and a copy of the order will be in her discharge packet. I explained to her that she will need to call Tuesday and set it up . She stated that would not be a problem. Patient denied known discharge needs at this time. CM will continue to follow and will assist as needed with dc plans/needs. IMM served and explained. Carlton will be the one to drive her home Credit Administrator: Lissett De Paz DCPIA - Discharge Planning Initial Assessment Updated by [email or web address]: Lissett De Paz on 02/02/19 12:14 pm * Is the patient Alert and Oriented? Yes * How many steps to enter\exit or inside your home? * PCP MARY CASTANEDA * Pharmacy [facility] * Preadmission Environment Home with Family * ADLs Independent * Equipment None * List name and contact numbers for known caregivers / representatives who currently or will assist patient after discharge: CARLTON ZIEGLER [phone] * Verbal permission to speak to the caregivers and representatives has been obtained from the patient. Yes * Community resources currently utilized None * Additional services required to return to the preadmission environment? No * Can the patient safely return to the preadmission environment? Yes * Has this patient been hospitalized within the prior 30 days at any hospital? No Coverage Notice Reviewer: [email or web address] - Lissett De Paz Notice Issued Date-Time: 02/02/2019 12:00 Notice Type: IM Discharge Notice Notice Delivered To: Patient Relationship to Patient: Deck Cadet Name: Delivery Method: HAND - Hand Delivered Noemi Days: Prior Verbal Notification: Recipient Understood Notice: Yes Recipient Signature: Yes Med Rec Note Co-signed by Attending: Coverage Notice Comment: Last DP export: 02/02/19 11:11 a Patient Name: FABIAN CORTEZ Page 75215 at 1218 All edits/amendments must be made on the electronic document DICTATION DATE: 02/02/19 1218 VEGETABLE THINNER: FELICITA 02/02/19 1218 RPT#: [id number] DC DATE: STATUS: ADM IN [facility] [address] [place] [address] END OF REPORT
--- NOTE | 2019-02-02 13:17 | NUR ---
PT. DISCHARGED UNDER CARE OF FRIEND. STABLE AT TIME OF DISCHARGE WITH picc line discontinued. verbalized understanding of discharge instrutions.
== END 2019-02-02 13:18 | disposition home or self-care (01) | DRG 392 ==
LOC: D.MS 11:40
PROVIDERS: ADMIT Orthopaedic Surgery; ATTEND Orthopaedic Surgery
DX: K58.1 Irritable bowel syndrome with constipation (principal); F31.9 Bipolar disorder, unspecified

== ENCOUNTER 2019-03-08 19:14 | Emergency (ER) | payer MEDICARE ==
[~2019-03-08 19:14] MED LIST changes: +COLACE100 MG PO; +PERCOCET 10-321 EAC1 PO
[2019-03-08 19:23] VITALS: BMI 20.5
[2019-03-08 20:51] LABS: BASOPHILS 0.4 % (0-2); EOSINOPHILS 1.7 % (0-7); HEMOGLOBIN 12.5 g/dL (12-16); IMMATURE GRANULOCYTES 0.1 % (0-5); LYMPHOCYTES 25.7 % (15-50); MCH 29.1 pg (26.0-34.0); MCHC 33.8 g/dL (31.0-37.0); MCV 86.2 fL (80.0-100.0); MEAN PLATELET VOLUME 10.9 fL (7.4-10.4); MONOCYTES 10.4 % (2-11); NEUTROPHILS 61.7 % (40-80); PLATELET COUNT 366 10x3/uL (130-400); RBC 4.29 10x6/uL (4.00-5.40); RDW 13.5 % (11.5-14.5); WBC 8.2 10x3/uL (4.8-10.8)
[2019-03-08 21:02] LABS: ALBUMIN 3.1 g/dL (3.4-5.0); ALKALINE PHOSPHATASE 91 U/L (46-116); ALT (SGPT) 12 U/L (10-68); BILIRUBIN - TOTAL 0.26 mg/dL (0.2-1.3); CALC OSMOLALITY 269 mosm/kg (275-300); CALCIUM 10.2 mg/dL (8.5-10.1); CARBON DIOXIDE 25.6 mmol/L (21.0-32.0); CHLORIDE - SERUM 101 mmol/L (98-107); CREATININE - SERUM 0.8 mg/dL (0.6-1.3); GLUCOSE 114 mg/dL (74-106); POTASSIUM - SERUM 3.7 mmol/L (3.5-5.1); PROTEIN - SERUM 8.1 g/dL (6.4-8.2); SODIUM 134 mmol/L (136-145); UREA NITROGEN 16 mg/dL (7-18); eGFR NON AFRICAN AMERICAN 76 mL/min (90-120)
[2019-03-08] MEDS ORDERED: SENNA8.6 MG PO (21:38)
[2019-03-08 21:45] VITALS: BP 122/76
[2019-05-15] MEDS ORDERED: COLACE100 MG PO (10:27)
[2019-05-15] MEDS ORDERED: LINZESS145 MCG PO (10:27)
[2019-05-18] MEDS ORDERED: HYDROCODON-ACE1 EA10 PO (16:30)
[2019-05-18] MEDS ORDERED: MEDROL DOSE PACK4 MG PO (16:31)
== END 2019-03-08 21:45 | disposition home or self-care (01) ==
LOC: D.ER 19:14
PROVIDERS: Family Medicine
DX: K59.03 Drug induced constipation (principal); T40.2X5A Adverse effect of other opioids, initial encounter; Y92.019 Unspecified place in single-family (private) house as the place of occurrence of the external cause

== ENCOUNTER 2019-03-10 11:07 | Emergency (ER) | payer MEDICARE ==
[~2019-03-10] VITALS: Ht 172.7 cm; Wt 59.1 kg
[~2019-03-10 11:07] MED LIST changes: +SENNA8.6 MG PO
[2019-03-10 11:11] VITALS: BP 143/73; Ht 172.7 cm; Wt 59.1 kg
[2019-03-10] MEDS ORDERED: COLACE100 MG PO (12:34)
== END 2019-03-10 12:38 | disposition home or self-care (01) ==
LOC: D.ER 11:07
DX: K56.7 Ileus, unspecified (principal)

== ENCOUNTER → 2019-04-19 13:39 | Outpatient (CLI) | payer MEDICARE ==
[2019-03-10 11:11] VITALS: BMI 19.8
[~2019-04-19 13:39] MED LIST changes: +MEDROL DOSE PACK4 MG PO; +VALIUM 2 MG TAB2 MG PO
== END | disposition home or self-care (01) ==
LOC: D.MRI 04-16 11:00
PROVIDERS: ATTEND Clinical Nurse Specialist Family Health
DX: M54.12 Radiculopathy, cervical region (principal)

== ENCOUNTER 2019-04-20 12:17 | Inpatient (IN) | payer MEDICARE ==
[~2019-04-20] VITALS: Ht 172.7 cm; Wt 57.3 kg
[~2019-04-20 12:17] MED LIST changes: -MEDROL DOSE PACK4 MG PO; -VALIUM 2 MG TAB2 MG PO
[2019-04-20 13:07] LABS: BASOPHILS 0.5 % (0-2); EOSINOPHILS 1.2 % (0-7); HEMATOCRIT 40.8 % (36.0-48.0); HEMOGLOBIN 13.7 g/dL (12-16); IMMATURE GRANULOCYTES 0.2 % (0-5); LYMPHOCYTES 34.1 % (15-50); MCH 28.4 pg (26.0-34.0); MCHC 33.6 g/dL (31.0-37.0); MCV 84.6 fL (80.0-100.0); MEAN PLATELET VOLUME 10.2 fL (7.4-10.4); MONOCYTES 7.5 % (2-11); NEUTROPHILS 56.5 % (40-80); PLATELET COUNT 390 10x3/uL (130-400); RBC 4.82 10x6/uL (4.00-5.40); RDW 14.4 % (11.5-14.5); WBC 9.1 10x3/uL (4.8-10.8)
[2019-04-20 13:33] LABS: ALBUMIN 3.6 g/dL (3.4-5.0); ALKALINE PHOSPHATASE 87 U/L (46-116); ALT (SGPT) 14 U/L (10-68); BILIRUBIN - TOTAL 0.44 mg/dL (0.2-1.3); CALC OSMOLALITY 283 mosm/kg (275-300); CALCIUM 9.8 mg/dL (8.5-10.1); CARBON DIOXIDE 26.7 mmol/L (21.0-32.0); CHLORIDE - SERUM 106 mmol/L (98-107); CREATININE - SERUM 0.7 mg/dL (0.6-1.3); GLUCOSE 97 mg/dL (74-106); PROTEIN - SERUM 7.5 g/dL (6.4-8.2); SODIUM 142 mmol/L (136-145); UREA NITROGEN 15 mg/dL (7-18); eGFR NON AFRICAN AMERICAN 89 mL/min (90-120)
[2019-04-20 15:25] LABS: APPEARANCE CLEAR (CLEAR); BILIRUBIN NEGATIVE (NEGATIVE); COLOR YELLOW (YELLOW); GLUCOSE NEGATIVE (NEGATIVE); KETONE NEGATIVE (NEGATIVE); NITRITE NEGATIVE (NEGATIVE); PROTEIN NEGATIVE (NEGATIVE); SPECIFIC GRAVITY 1.015 (1.005-1.020); UROBILINOGEN NORMAL (NORMAL)
[2019-04-20] MEDS ORDERED: VALIUM 2 MG TAB2 MG PO (18:52)
[2019-04-20 20:00] VITALS: BP 112/61
--- NOTE | 2019-04-20 20:45 | NUR ---
PT C/O NECK PAIN 08/16. GAVE MORPHINE IV PUSH. PT STATES SHE IS HUNGRY. GAVE TURKEY SANDWICH - PT TOLERATED WELL. PT HAS HAD 4 ORANGE SHERBETS WELL. COMPLETE ASSESSMENT PER FLOW-SHEET. NO OTHER NEEDS. WILL CONTINUE TO MONITOR.
[2019-04-21] VITALS (7 sets, daily range): BP systolic 99–128; BP diastolic 49–71; Ht 172.7 cm; Wt 57.3 kg
[2019-04-21 07:39] LABS: BASOPHILS 0.1 % (0-2); EOSINOPHILS 0 % (0-7); HEMATOCRIT 35.2 % (36.0-48.0); HEMOGLOBIN 11.6 g/dL (12-16); IMMATURE GRANULOCYTES 0.3 % (0-5); LYMPHOCYTES 15.9 % (15-50); MCH 27.7 pg (26.0-34.0); MEAN PLATELET VOLUME 10.2 fL (7.4-10.4); MONOCYTES 5.7 % (2-11); PLATELET COUNT 408 10x3/uL (130-400); RBC 4.19 10x6/uL (4.00-5.40); RDW 14.4 % (11.5-14.5); WBC 6.8 10x3/uL (4.8-10.8)
[2019-04-21 07:49] LABS: ALBUMIN 3.1 g/dL (3.4-5.0); ALKALINE PHOSPHATASE 81 U/L (46-116); ALT (SGPT) 14 U/L (10-68); BILIRUBIN - TOTAL 0.32 mg/dL (0.2-1.3); CALC OSMOLALITY 278 mosm/kg (275-300); CALCIUM 9.6 mg/dL (8.5-10.1); CARBON DIOXIDE 23.4 mmol/L (21.0-32.0); CHLORIDE - SERUM 105 mmol/L (98-107); CREATININE - SERUM 0.7 mg/dL (0.6-1.3); GLUCOSE 141 mg/dL (74-106); POTASSIUM - SERUM 4.4 mmol/L (3.5-5.1); PROTEIN - SERUM 6.8 g/dL (6.4-8.2); SODIUM 138 mmol/L (136-145); UREA NITROGEN 16 mg/dL (7-18); eGFR NON AFRICAN AMERICAN 88 mL/min (90-120)
--- NOTE | 2019-04-21 08:08 | NUR ---
PT RESTING IN BED. CO OF "NECK PAIN". NO S/S OF ACUTE DISTRESS. CL IN PLACE.
--- NOTE | 2019-04-21 19:15 | NUR ---
PT SITTING UP IN BED WATCHING TV. CO OF SEVERE NECK PAIN OF "10" THIS SHIFT WITH "MINIMAL RELIEF FROM MORPHINE". NO GRIMACING, CRYING OR MOANING NOTED.NO S/S OF ACUTE DISTRESS. CL IN PLACE.
--- NOTE | 2019-04-21 22:45 | NUR ---
PT SITTING UP IN BED TALKING ON PHONE. C/O NECK PAIN 08/16. GAVE MORPHINE 2 MG IV PUSH. BROUGHT PT COKE AND 2 SHERBETS. SCANT OUTPUT IN COLOSTOMY. BOWEL SOUNDS ACTIVE. NO OTHER NEEDS. WILL CONTINUE TO MONITOR.
[2019-04-22] VITALS: BP 110/52
[2019-04-22 04:00] VITALS: BP 116/53
[2019-04-22 07:27] LABS: ALBUMIN 3.2 g/dL (3.4-5.0); ALKALINE PHOSPHATASE 86 U/L (46-116); ALT (SGPT) 15 U/L (10-68); BILIRUBIN - TOTAL 0.18 mg/dL (0.2-1.3); CALC OSMOLALITY 285 mosm/kg (275-300); CALCIUM 9.6 mg/dL (8.5-10.1); CARBON DIOXIDE 25.4 mmol/L (21.0-32.0); CHLORIDE - SERUM 106 mmol/L (98-107); CREATININE - SERUM 0.6 mg/dL (0.6-1.3); GLUCOSE 124 mg/dL (74-106); POTASSIUM - SERUM 3.9 mmol/L (3.5-5.1); SODIUM 143 mmol/L (136-145); UREA NITROGEN 13 mg/dL (7-18); eGFR NON AFRICAN AMERICAN > 90 mL/min (90-120)
[2019-04-22 07:46] LABS: BASOPHILS 0.1 % (0-2); EOSINOPHILS 0.1 % (0-7); HEMATOCRIT 38.3 % (36.0-48.0); HEMOGLOBIN 12.2 g/dL (12-16); IMMATURE GRANULOCYTES 0.2 % (0-5); LYMPHOCYTES 10.8 % (15-50); MCH 27.5 pg (26.0-34.0); MCHC 31.9 g/dL (31.0-37.0); MEAN PLATELET VOLUME 10.8 fL (7.4-10.4); MONOCYTES 4.3 % (2-11); NEUTROPHILS 84.5 % (40-80); PLATELET COUNT 427 10x3/uL (130-400); RBC 4.43 10x6/uL (4.00-5.40); RDW 14.7 % (11.5-14.5)
[2019-04-22 07:51] LABS: MCV 86.5 fL (80.0-100.0); WBC 12.5 10x3/uL (4.8-10.8)
--- NOTE | 2019-04-22 07:57 | NUR ---
PT RESTING IN BED. CHEST RISING AND FALLING. NO S/S OF ACUTE DISTRESS. CL IN PLACE.
[2019-04-22 10:13] VITALS: BP 111/69
[2019-04-22] MEDS ORDERED: SENNA8.6 MG PO (10:33)
[2019-04-22] MEDS ORDERED: MIRALAX17 GM PO (10:33)
[2019-04-22] MEDS ORDERED: MEDROL DOSE PACK4 MG PO (10:33)
[2019-04-22] MEDS ORDERED: HYDROCODON-ACE1 EAC7 PO (12:34)
[2019-04-22 13:54] VITALS: BP 121/68
--- NOTE | 2019-04-22 14:09 | MORECARE ---
CASE MANAGEMENT DISCHARGE SUMMARY PATIENT: FABIAN INGRAM UNIT: [id number] ADM DATE: 04/21/19 AGE: 69 : 52 SEX: F ROOM/BED: D.2212 AUTHOR: ONEIL SIU PHYSICIAN: REFERRING PHYSICIAN: EUGENE LARKIN DO DATE OF SERVICE: 04/22/19 Discharge Plan Patient Name: FABIAN INGRAM Facility: [facility]:[place] : 1950 Planned Disposition: Home Anticipated Discharge Date: 04/22/19 Discharge Date: Expected LOS: 1 Initial Reviewer: [email or web address] Initial Review Date: 04/20/2019 Generated: 04/22/19 3:09 pm DCPIA - Discharge Planning Initial Assessment Updated by [email or web address]: Jyoti Padron on 04/22/19 2:06 pm * Is the patient Alert and Oriented? Yes * How many steps to enter\exit or inside your home? four * PCP DR Linda Aldana * [facility] * Preadmission Environment Home with Family * ADLs Independent * List name and contact numbers for known caregivers / representatives who currently or will assist patient after discharge: Carlton dillardmarciano * Community resources currently utilized None * Please name any agencies selected above. N/A * Additional services required to return to the preadmission environment? No * Can the patient safely return to the preadmission environment? Yes * Has this patient been hospitalized within the prior 30 days at any hospital? Yes Patient Name: FABIAN INGRAM Page 87845 at 1409 All edits/amendments must be made on the electronic document DICTATION DATE: 04/22/191407 TIME SIGNAL WIRER: FELICITA 04/22/191407 RPT#: [id number] DC DATE: STATUS: ADM IN [facility] [address] [place] [address] END OF REPORT
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
== END 2019-04-22 16:49 | disposition home or self-care (01) | DRG 552 ==
LOC: D.ER 12:17 → D.MS 17:32 → OBSVTIME 17:34 → D.MS 04-21 11:37
PROVIDERS: Emergency Medicine; ADMIT Family Medicine; ATTEND Family Medicine
DX: M54.2 Cervicalgia (principal); K58.9 Irritable bowel syndrome, unspecified; J44.9 Chronic obstructive pulmonary disease, unspecified; F31.9 Bipolar disorder, unspecified; I25.10 Atherosclerotic heart disease of native coronary artery without angina pectoris; K59.03 Drug induced constipation; T40.2X5A Adverse effect of other opioids, initial encounter; J40 Bronchitis, not specified as acute or chronic; E53.8 Deficiency of other specified B group vitamins; E55.9 Vitamin D deficiency, unspecified; F41.8 Other specified anxiety disorders; K57.90 Diverticulosis of intestine, part unspecified, without perforation or abscess without bleeding; Z93.3 Colostomy status

== ENCOUNTER 2019-05-02 02:39 | Inpatient (IN) | payer MEDICARE ==
[2019-05-02] VITALS (8 sets, daily range): BP systolic 110–160; BP diastolic 38–76; Ht 172.7 cm; Wt 55.8 kg
[~2019-05-02] VITALS: Ht 172.7 cm; Wt 55.8 kg
[~2019-05-02 02:39] MED LIST changes: +MEDROL DOSE PACK4 MG PO; +VALIUM 2 MG TAB2 MG PO
[2019-05-02 03:42] LABS: BASOPHILS 0.2 % (0-2); EOSINOPHILS 0.7 % (0-7); HEMATOCRIT 40.4 % (36.0-48.0); HEMOGLOBIN 13.5 g/dL (12-16); IMMATURE GRANULOCYTES 0.2 % (0-5); LYMPHOCYTES 23.8 % (15-50); MCH 28.8 pg (26.0-34.0); MCHC 33.4 g/dL (31.0-37.0); MCV 86.1 fL (80.0-100.0); MEAN PLATELET VOLUME 11.6 fL (7.4-10.4); MONOCYTES 4.2 % (2-11); NEUTROPHILS 70.9 % (40-80); PLATELET COUNT 349 10x3/uL (130-400); RBC 4.69 10x6/uL (4.00-5.40); WBC 12.2 10x3/uL (4.8-10.8)
[2019-05-02 03:56] LABS: ALBUMIN 3.9 g/dL (3.4-5.0); ALKALINE PHOSPHATASE 100 U/L (46-116); ALT (SGPT) 16 U/L (10-68); BILIRUBIN - TOTAL 0.68 mg/dL (0.2-1.3); CALC OSMOLALITY 281 mosm/kg (275-300); CALCIUM 10.1 mg/dL (8.5-10.1); CARBON DIOXIDE 23.6 mmol/L (21.0-32.0); CHLORIDE - SERUM 105 mmol/L (98-107); CREATININE - SERUM 0.8 mg/dL (0.6-1.3); GLUCOSE 105 mg/dL (74-106); POTASSIUM - SERUM 3.6 mmol/L (3.5-5.1); PROTEIN - SERUM 7.4 g/dL (6.4-8.2); SODIUM 140 mmol/L (136-145); UREA NITROGEN 20 mg/dL (7-18); eGFR NON AFRICAN AMERICAN 76 mL/min (90-120)
[2019-05-02 03:58] LABS: AMYLASE - SERUM 43 U/L (25-115); LIPASE 71 U/L (73-393)
[2019-05-02 03:59] LABS: TROPONIN-I < 0.017 ng/mL (0.000-0.060)
[2019-05-02 05:50] LABS: APPEARANCE CLEAR (CLEAR); BILIRUBIN NEGATIVE (NEGATIVE); COLOR YELLOW (YELLOW); GLUCOSE NEGATIVE (NEGATIVE); KETONE SMALL mg/dL (NEGATIVE); NITRITE NEGATIVE (NEGATIVE); PROTEIN NEGATIVE (NEGATIVE); UROBILINOGEN NORMAL (NORMAL)
--- NOTE | 2019-05-02 06:42 | NUR ---
DR. WARD CANCELLED EKG
--- NOTE | 2019-05-02 09:00 | NUR ---
ASSESSMENT PER FLOW SHEET. PT IS COMPLAING OF PAIN 10/10 SCALE TO ABDOMEN. FOREIGN LANGUAGE PROFESSOR PER MAR ORDERED. ORIENTATION TO ROOM.CALL LIGHT IN REACH
--- NOTE | 2019-05-02 15:45 | NUR ---
PT HAS BEEN RESTING,WITHOUT SIGNS OF DISTRESS. MONITOR FOR NEEDS
--- NOTE | 2019-05-02 18:00 | NUR ---
REMAINS WITHOUT SIGNS OF DISTRESS. SHE HAS SLEPT ALOT ON AND OFF TODAY. CONT PLAN OF CARE
[2019-05-03 01:25] VITALS: BP 106/65
[2019-05-03 05:29] VITALS: BP 124/70
--- NOTE | 2019-05-03 06:26 | NUR ---
AWAKE WATCHING TV AND TEXTING ON PHONE. DENIES NEEDS.
[2019-05-03 06:46] LABS: BASOPHILS 0.3 % (0-2); EOSINOPHILS 1.4 % (0-7); HEMATOCRIT 35.4 % (36.0-48.0); HEMOGLOBIN 11.3 g/dL (12-16); IMMATURE GRANULOCYTES 0.1 % (0-5); MCHC 31.9 g/dL (31.0-37.0); MCV 87.6 fL (80.0-100.0); MEAN PLATELET VOLUME 11.4 fL (7.4-10.4); MONOCYTES 6.2 % (2-11); PLATELET COUNT 283 10x3/uL (130-400); RBC 4.04 10x6/uL (4.00-5.40); RDW 16.3 % (11.5-14.5)
[2019-05-03 07:03] LABS: WBC 7.1 10x3/uL (4.8-10.8)
[2019-05-03 07:31] LABS: ALBUMIN 2.8 g/dL (3.4-5.0); ALKALINE PHOSPHATASE 76 U/L (46-116); ALT (SGPT) 11 U/L (10-68); BILIRUBIN - TOTAL 0.94 mg/dL (0.2-1.3); CALC OSMOLALITY 277 mosm/kg (275-300); CARBON DIOXIDE 25.7 mmol/L (21.0-32.0); CHLORIDE - SERUM 108 mmol/L (98-107); CREATININE - SERUM 0.5 mg/dL (0.6-1.3); GLUCOSE 84 mg/dL (74-106); POTASSIUM - SERUM 3.9 mmol/L (3.5-5.1); PROTEIN - SERUM 5.7 g/dL (6.4-8.2); SODIUM 141 mmol/L (136-145); UREA NITROGEN 8 mg/dL (7-18); eGFR NON AFRICAN AMERICAN > 90 mL/min (90-120)
--- NOTE | 2019-05-03 09:00 | NUR ---
ASSESSMENT PER FLOW SHEET. PT IS WITHOUT DISTRESS.DENIES NEEDS.CALL LIGHT IN REACH
[2019-05-03 09:11] VITALS: BP 125/52
--- NOTE | 2019-05-03 10:28 | NUR ---
COLOSTOMY BAG FULL OF THICK PASTY STOOL PER PT. STATES SHE EMPTIED.BAG REPLACED PER PT.
--- NOTE | 2019-05-03 10:30 | NUR ---
IV PULLED BY PT AND IS TENDER AND RED. SOME SWELLING NOTED IV DCD WITH CATH TIP INTACCT
--- NOTE | 2019-05-03 11:03 | NUR ---
IV RESITED TO LEFT FOREARM X1 STICK,USING ASEPTIC TECH.22G
[2019-05-03] MEDS ORDERED: LINZESS145 MCG PO (12:02)
--- NOTE | 2019-05-03 13:45 | NUR ---
IV DCD WITH CATH TIP INTACT.DISCHARGE INSTRUCTIONS,STATES UNDERSTANDING.RIDE HERE FOR TRANSPORT HOME
--- NOTE | 2019-05-03 13:48 | NUR ---
LEFT UNIT VIA WHEELCHAIR FOR TRANSPORT HOME
== END 2019-05-03 13:48 | disposition home or self-care (01) | DRG 390 ==
LOC: D.ER 02:39 → D.MS 05:56
PROVIDERS: Family Medicine; ADMIT Family Medicine; ATTEND Family Medicine
DX: K56.7 Ileus, unspecified (principal); E86.0 Dehydration; K58.9 Irritable bowel syndrome, unspecified; F31.9 Bipolar disorder, unspecified; F41.9 Anxiety disorder, unspecified; G89.29 Other chronic pain; I34.1 Nonrheumatic mitral (valve) prolapse; Z79.899 Other long term (current) drug therapy; Z93.3 Colostomy status; J44.9 Chronic obstructive pulmonary disease, unspecified; K59.00 Constipation, unspecified

== ENCOUNTER 2019-05-17 05:45 | Day surgery (SDC) | payer MEDICARE ==
[2019-05-15 11:17] LABS: HEMATOCRIT 43.2 % (36.0-48.0); HEMOGLOBIN 14.1 g/dL (12-16); MCH 29.4 pg (26.0-34.0); MCHC 32.6 g/dL (31.0-37.0); MEAN PLATELET VOLUME 11.6 fL (7.4-10.4); RBC 4.8 10x6/uL (4.00-5.40); RDW 15.6 % (11.5-14.5); WBC 7.7 10x3/uL (4.8-10.8)
[2019-05-17] VITALS (15 sets, daily range): BP systolic 105–133; BP diastolic 50–90; Ht 172.7 cm; Wt 55.1 kg
[~2019-05-17] VITALS: Ht 172.7 cm; Wt 55.1 kg
[~2019-05-17 05:45] MED LIST changes: +LINZESS145 MCG PO
--- NOTE | 2019-05-17 12:21 | NUR ---
PATIENT RESTING. REPORT RECIEVED FROM MAXIMINO. QUICK START COMPLETED AT THIS TIME. VSS. NECK BRACE IN ROOM. WILL CONTINUE TO MONITOR
--- NOTE | 2019-05-17 12:23 | NUR ---
PATIENT UP TO BEDSIDE COMMODE
--- NOTE | 2019-05-17 13:00 | NUR ---
PATIENT RESTING. NECK COLLAR WORN WHEN OUT OF BED TO USE BEDSIDE COMMODE. PATIENT STABLE. SCD'S APPLIED. WILL CONTINUE TO MONITOR
--- NOTE | 2019-05-17 15:22 | NUR ---
PATIENT RESTING. WILL CONTINUE TO MONITOR
--- NOTE | 2019-05-17 16:44 | NUR ---
PT REFUSED BATH AT THIS TIME DUE TO PAIN
--- NOTE | 2019-05-17 18:21 | NUR ---
report given to brian in [facility]
--- NOTE | 2019-05-17 18:30 | NUR ---
PT ARRIVED IN THE UNIT. PT HOOOKED TO ICU MONITOS. VSS. WILL CONT POC.
--- NOTE | 2019-05-17 19:08 | NUR ---
REPORT RECEIVED, SHIFT ASSESSMENT COMPLETED PER FLOW SHEET. PPP. FOLLOWING COMMANDS. AAOX4. PVS' NOTED TO TELEMETRY, PATIENT STATES THAT SHE HAS HAD FREQUENT PVC'S SINCE SHE "WAS A LITTLE GIRL" AND THAT "IT NEVER AFFECTED ANYTHING." VITAL SIGNS STABLE. NO ACUTE DISTRESS NOTED. SEE FLOW SHEET FOR COMPLETE ASSESSMENT. CALL LIGHT WITHIN REACH. WILL CONTINUE TO MONITOR.
--- NOTE | 2019-05-17 19:43 | NUR ---
CALL LIGHT ANSWERED, ASSISSTED OOB TO BR, GAIT STEADY. INSTRUCTED PATIENT TO USE BR CALL LIGHT WHEN FINISHED, SHE VERBALIZED UNDERSTANDING.
--- NOTE | 2019-05-17 19:48 | NUR ---
CALL LIGHT ANSWERED, PATIENT VOIDED X1, ASSISSTED BACK IN BED. DENIES OTHER NEEDS. CALL LIGHT WITHIN REACH. WILL CONTINUE TO MONITOR.
--- NOTE | 2019-05-17 20:39 | NUR ---
CALL LIGHT ANSWERED, C/O PAIN, STATES SHE GETS RELIEVE WITH MORPHINE, PRN MORPHINE GIVEN AT THIS TIME, DENIES OTHER NEEDS. CALL LIGHT WITHIN REACH. WILL CONTINUE TO MONITOR.
--- NOTE | 2019-05-17 21:42 | NUR ---
CALL LIGHT ANSWERED, WATER AND JELLO PROVIDED PER PATIENT'S REQUEST. DENIES OTHER NEEDS. CALL LIGHT WITHIN REACH.
--- NOTE | 2019-05-17 23:01 | NUR ---
REASSESSMENT COMPLETED PER FLOW SHEET, SEE FOR DETAILS. NO ACUTE DISTRESS NOTED. DENIES NEEDS. CALL LIGHT WITHIN REACH. WILL CONTINUE TO MONITOR.
[2019-05-18] VITALS (12 sets, daily range): BP systolic 95–145; BP diastolic 48–75
--- NOTE | 2019-05-18 01:00 | NUR ---
RESTING, NO ACUTE CHANGES NOTED, DENIES NEEDS. CALL LIGHT WITHIN REACH.
--- NOTE | 2019-05-18 03:01 | NUR ---
REASSESSMENT COMPLETED PER FLOW SHEET, SEE FOR DETAILS. NO ACUTE CHANGES NOTED. DENIES NEEDS. CALL LIGHT WITHIN REACH. WILL CONTINUE TO MONITOR.
--- NOTE | 2019-05-18 05:00 | NUR ---
NO ACUTE DISTRESS NOTED, DENIES NEEDS AT THIS TIME. CALL LIGHT WITHIN REACH. WILL CONTINUE TO MONITOR.
--- NOTE | 2019-05-18 07:00 | NUR ---
REPORT RECEVIED FROM THE OFF GOING RN. SEE ASSESSMENT IN THE PTS FLOW SHEET. PT LYING IN BED. SHE STATED THAT SHE GOT OOB AND WENT TO THE BATHROOM AND WAS SITTING OOB FOR ABOUT 30 MINUTES. EXPLAINED THAT SHE IS TO GET OOB WITH MEAL AND SHE AGREED. RIGHT ANTERIOR NECK INCISION DRY. WELL APPROXIMATED. IT SHOWS NO S/SX OF INFECTION. HEART NSR WITH FREQUENT PVC'S. PT STATED SHE HAS HAD THIS ISSUES ALL HER LIFE. VSS AT THIS TIME. PT ABLE TO MOVE ALL EXTREMITES WITH EQUAL ISOTOPE TECHNICIAN. CALL LIGHT IN REACH. WILL CONT POC.
--- NOTE | 2019-05-18 08:00 | NUR ---
PT HAD A 6 PVC'S IN A ROW. PT NON SYMTOMATIC. DR DUBOSE PAGED.
--- NOTE | 2019-05-18 08:03 | NUR ---
PAIN PILL PROVIDED PER REQUEST. SEE MAR. INCISION SITE WELL APPROXIMATED.
--- NOTE | 2019-05-18 09:20 | NUR ---
WASH CLOTHS AND GOWN GIVEN TO THE PT. ONLY ASSISTED WITH WASHING THE PTS BACK. PT GAVE HERSELF A CHD BED BATH. PT TOLERATED WELL. WILL CONT POC.
--- NOTE | 2019-05-18 10:50 | NUR ---
IV DC WITH THE CATHETER TIP INTACT.
--- NOTE | 2019-05-18 10:51 | NUR ---
DR DUBOSE IN THE UNIT. OK TO CO HOME.
--- NOTE | 2019-05-18 10:56 | NUR ---
MADE DR DUBOSE AWARE OF THE PT HAVING FREQUENT PVC'S. DR DUBOSE STATED TO HAVE DR GARY CONSULTED BEFORE SHE LEAVES.
--- NOTE | 2019-05-18 11:00 | NUR ---
LUIS SUAZO CALLED AND SPOKE WITH KIAN. KIAN STATED DR GARY IS IN THE MIDDLE OF A CASE. I TOLD HIM ABOUT COOKIE BEING CONSULTED AND HE WILL TELL DR GARY.
--- NOTE | 2019-05-18 13:15 | NUR ---
DR SHAH AT THE PTS BEDSIDE. DR SHAH ORDERED AN ECHO FOR TODAY.
--- NOTE | 2019-05-18 16:09 | NUR ---
SPOKE WITH DR SHAH. OK TO DC. HE WANTS TO SEE THE PT IN HIS CLINIC IN A WEEK. DR DUBOSE PAGED ABOUT DC. OK TO DC HOME. PT BELONINGS ACCOUNTED FOR. DC INSTRUCTIONS WENT OVER WITH THE PT. NO QUESTIONS AT THIS TIME. PT LEFT IN A STABLE CONDITION.
--- NOTE | 2019-05-18 16:12 | NUR ---
APPOINTMENT MADE WITH DR SHAH ON 05/24 AT 330PM
--- NOTE | 2019-05-18 16:14 | NUR ---
SPOKE WITH DR DUBOSE. LALITHA TO DC THE PT HOME.
[2019-05-18] MEDS ORDERED: HYDROCODON-ACE1 EA10 PO (16:30)
[2019-05-18] MEDS ORDERED: MEDROL DOSE PACK4 MG PO (16:31)
== END 2019-05-17 17:02 | disposition home or self-care (01) ==
LOC: D.OPS 05:45 → D.CVICU 05:45 → D.PAN 07:30 → D.OPS 07:30 → D.ICU 10:39 → D.OPS 10:39 → D.ICU 18:28 → D.CVICU 18:28 → D.OPS 18:34 → D.CVICU 05-18 17:02
PROVIDERS: Anesthesiology; ATTEND Neurological Surgery
DX: M54.2 Cervicalgia (principal); I49.3 Ventricular premature depolarization; I34.0 Nonrheumatic mitral (valve) insufficiency; R01.1 Cardiac murmur, unspecified

== ENCOUNTER 2019-05-26 22:22 | Emergency (ER) | payer MEDICARE ==
[~2019-05-26] VITALS: Ht 172.7 cm; Wt 55.0 kg
[2019-05-26 22:29] VITALS: Ht 172.7 cm; Wt 55.0 kg
[2019-05-27] MEDS ORDERED: ZOVIRAX800 MG PO (00:19)
[2019-05-27] MEDS ORDERED: ERYTHROMYCIN OPT1 GM EACH EYE (00:19)
[2019-05-27] MEDS ORDERED: HYDROCODON-ACE1 EA10 PO (00:19)
[2019-05-27] MEDS ORDERED: ZOFRAN8 MG PO (00:20)
[2019-05-27 00:40] VITALS: BP 118/85
== END 2019-05-27 00:40 | disposition home or self-care (01) ==
LOC: D.ER 22:22
DX: B02.9 Zoster without complications (principal)

== ENCOUNTER → 2019-06-21 08:14 | Outpatient (CLI) | payer MEDICARE ==
[2019-05-26 22:29] VITALS: BMI 18.4
[~2019-06-21 08:14] MED LIST changes: +ERYTHROMYCIN OPT1 GM EACH EYE; +ULTRAM50 MG PO; +ZOFRAN8 MG PO; +ZOVIRAX800 MG PO
== END | disposition home or self-care (01) ==
LOC: D.MRI 08:14
PROVIDERS: ATTEND Clinical Nurse Specialist Family Health
DX: M25.512 Pain in left shoulder (principal)

== ENCOUNTER 2019-08-02 08:10 | Day surgery (SDC) | payer MEDICARE, OTHER ==
[2019-08-01 15:38] LABS: HEMATOCRIT 39.8 % (36.0-48.0); HEMOGLOBIN 13.1 g/dL (12-16); MCH 30.3 pg (26.0-34.0); MCHC 32.9 g/dL (31.0-37.0); MCV 91.9 fL (80.0-100.0); MEAN PLATELET VOLUME 11.2 fL (7.4-10.4); RBC 4.33 10x6/uL (4.00-5.40); RDW 14.2 % (11.5-14.5); WBC 6.1 10x3/uL (4.8-10.8)
[~2019-08-02] VITALS: Ht 172.7 cm; Wt 54.0 kg
[2019-08-02 09:49] VITALS: BP 142/83; Ht 172.7 cm; Wt 54.0 kg
[2019-08-02] MEDS ORDERED: HYDROCODON-ACE1 EA10 PO (11:41)
--- NOTE | 2019-08-02 14:07 | NUR ---
1335-DISCHARGE CRITERIA MET. IV REMOVED DISPOSED INTO SHARPS,COVERED SITE WITH BANDAID. STABLE CONDITION. REVIEWED POST OPERATIVE INSTRUCTIONS WITH PT WITH AT BEDSIDE.VERBALIZE UNDERSTANDING. ESCORTED OUT VIA W/C WITH AWAITING TO DRIVE HOME.
--- NOTE | 2019-08-06 11:59 | OP ---
PATIENT NAME: FABIAN CORTEZ MEDICAL RECORD: [id number] :54 LOCATION:D.OPS ADMISSION DATE: SURGEON: MECCA THOMAS MD DATE OF OPERATION: 08/02/2019 PREOPERATIVE DIAGNOSIS: Residual biceps tendinitis of the left shoulder. POSTOPERATIVE DIAGNOSES: Residual biceps tendinitis of the left shoulder, plus retained intra-articular sutures. PROCEDURES: 1. Left shoulder arthroscopy with arthroscopic biceps tenotomy. 2. Arthroscopic removal of retained suture elements in the left shoulder. SURGEON: Mecca Thomas MD ANESTHESIA: General. INTRAOPERATIVE COMPLICATIONS: None. SUMMARY OF PATHOLOGIC FINDINGS: The patient was found to have severe biceps tendinitis as noted as the patient had had very short relief with injection of the biceps tendon. Furthermore, at the time of surgery, the rotator cuff repair done prior was found to be completely intact with a watertight seal. However, the patient did have some intraarticular FiberWires that I felt best should be removed as they might have caused some of the patient's symptoms. These were removed at the time of arthroscopy. OPERATIVE SUMMARY IN DETAIL: After obtaining the appropriate preoperative orthopedic surgery consents as well as anesthetic consultation, evaluation and clearance, the patient was brought to the operating room and placed in the operating table in supine position. After adequate general laryngeal mask airway was administered, the patient was placed in the right lateral decubitus position. All pressure points were well padded to include down leg peroneal pad as well as axillary roll. The patient was held firmly to the operating table using vacuum pack suction system. The patient's upper extremity and shoulder were then prepped and draped in routine sterile fashion. The arm was held in the Arthrex traction boom, 30 degrees of forward flexion, 30 degrees of abduction, 10 pounds of traction laterally. Arthroscopy was established in the left shoulder glenohumeral joint. The patient was found to have excellent seal of the rotator cuff. Some intraarticular fibers from the patient's prior rotator cuff surgery were noted. The patient had severe biceps tendinitis and as previously discussed prior to surgery, I felt like tenotomy was the best option. Through an anterior arthroscopic portal, the Arthrex [place] tissue ablation system was utilized to complete the biceps tenotomy at the bicipital labral junction. Biceps tendon was then milked out of the articular aspect of the glenohumeral joint. Having completed this, a 5.0 resector was then utilized to take down the patient's intraarticular fibers. No further rotator cuff tearing was noted. Attention then turned to the subacromial space, the subacromial space was scoped to be sure that the rotator cuff repair from prior had healed and that it had definitely healed with good reapproximation got back to the greater tuberosity. At this point, the arthroscopy portals were closed in routine interrupted fashion with 4-0 Prolene by WILLIAM Cesar. Sterile dressings were applied. The patient was awakened and taken to recovery room in stable condition. All final needle and sponge counts were correct. OPERATIVE REPORT [id number] FABIAN CORTEZ TRANSINT:[id number] Voice Confirmation ID: [id number] DOCUMENT ID: [id number] MARTHA FORTUNE, MECCA BIGGS at 1159 CC: [id number] DICTATION DATE: 08/02/19 165 FINAL DRESSING CUTTER: 08/03/19 0428 [facility] 08/02/19 [id number] [place] [address]
== END 2019-08-02 13:40 | disposition home or self-care (01) ==
LOC: D.OPS 08:10
PROVIDERS: Anesthesiology; ATTEND Orthopaedic Surgery
DX: M75.22 Bicipital tendinitis, left shoulder (principal); Z48.02 Encounter for removal of sutures

== ENCOUNTER 2019-10-10 18:58 | Emergency (ER) | payer MEDICARE, OTHER ==
[~2019-10-10] VITALS: Ht 172.7 cm; Wt 61.8 kg
[2019-10-10 19:23] VITALS: Ht 172.7 cm; Wt 61.8 kg
[2019-10-10 21:18] VITALS: BP 148/80
== END 2019-10-10 21:18 | disposition home or self-care (01) ==
LOC: D.ER 18:58
DX: M25.561 Pain in right knee (principal); M25.461 Effusion, right knee; W55.12XA Struck by horse, initial encounter; Y93.9 Activity, unspecified; Y92.9 Unspecified place or not applicable

== ENCOUNTER → 2020-01-10 17:16 | Outpatient (CLI) | payer MEDICARE, OTHER ==
[2019-10-10 19:23] VITALS: BMI 20.7
== END | disposition home or self-care (01) ==
LOC: D.LABREF 17:16
PROVIDERS: ATTEND Orthopaedic Surgery
DX: M19.012 Primary osteoarthritis, left shoulder (principal)

== ENCOUNTER 2020-01-11 13:13 | Inpatient (IN) | payer MEDICARE ==
[~2020-01-11] VITALS: Ht 172.7 cm; Wt 68.2 kg
[~2020-01-11 13:13] MED LIST changes: +DEPAKOTE ER250 MG PO
[2020-03-10] MEDS ORDERED: NEURONTIN600 MG PO (11:48)
[2020-03-10 12:46] LABS: CALC OSMOLALITY 280 mosm/kg (275-300); CALCIUM 9.6 mg/dL (8.5-10.1); CARBON DIOXIDE 23.6 mmol/L (21.0-32.0); CHLORIDE - SERUM 105 mmol/L (98-107); CREATININE - SERUM 0.7 mg/dL (0.6-1.3); GLUCOSE 73 mg/dL (74-106); POTASSIUM - SERUM 4.6 mmol/L (3.5-5.1); SODIUM 141 mmol/L (136-145); UREA NITROGEN 16 mg/dL (7-18); eGFR NON AFRICAN AMERICAN 88 mL/min (90-120)
[2020-03-10 12:57] LABS: APTT 27.4 SECONDS (22.8-39.4); INR 0.94 (0.85-1.17); PROTIME 12.5 SECONDS (11.6-15.0)
[2020-03-10 13:05] LABS: BILIRUBIN NEGATIVE (NEGATIVE); GLUCOSE NEGATIVE (NEGATIVE); KETONE SMALL mg/dL (NEGATIVE); NITRITE NEGATIVE (NEGATIVE); UROBILINOGEN NORMAL (NORMAL)
[2020-03-10 13:06] LABS: BACTERIA FEW /hpf (NEGATIVE); EPITHELIAL CELLS OCC /hpf (0-5); RED CELLS - URINE 0-5 /hpf (0-5); WHITE CELLS - URINE 0-5 /hpf (NEGATIVE)
[2020-03-25 10:35] LABS: BILIRUBIN NEGATIVE (NEGATIVE); GLUCOSE NEGATIVE (NEGATIVE); KETONE SMALL mg/dL (NEGATIVE); NITRITE NEGATIVE (NEGATIVE); UROBILINOGEN NORMAL (NORMAL)
[2020-03-25 10:36] LABS: BACTERIA FEW /hpf (NEGATIVE); EPITHELIAL CELLS 0-5 /hpf (0-5); RED CELLS - URINE OCC /hpf (0-5); WHITE CELLS - URINE 0-5 /hpf (NEGATIVE)
[2020-03-25 10:48] LABS: CALC OSMOLALITY 282 mosm/kg (275-300); CALCIUM 9.9 mg/dL (8.5-10.1); CARBON DIOXIDE 29.1 mmol/L (21.0-32.0); CHLORIDE - SERUM 104 mmol/L (98-107); CREATININE - SERUM 0.8 mg/dL (0.6-1.3); GLUCOSE 71 mg/dL (74-106); POTASSIUM - SERUM 4.4 mmol/L (3.5-5.1); SODIUM 142 mmol/L (136-145); UREA NITROGEN 18 mg/dL (7-18); eGFR NON AFRICAN AMERICAN 76 mL/min (90-120)
[2020-03-25 10:50] LABS: BASOPHILS 0.4 % (0-2); EOSINOPHILS 2.1 % (0-7); HEMATOCRIT 46.4 % (36.0-48.0); HEMOGLOBIN 14.7 g/dL (12-16); IMMATURE GRANULOCYTES 0.1 % (0-5); LYMPHOCYTES 41.4 % (15-50); MCH 29.9 pg (26.0-34.0); MCHC 31.7 g/dL (31.0-37.0); MCV 94.3 fL (80.0-100.0); MEAN PLATELET VOLUME 10.9 fL (7.4-10.4); MONOCYTES 5.4 % (2-11); NEUTROPHILS 50.6 % (40-80); RBC 4.92 10x6/uL (4.00-5.40); RDW 13.8 % (11.5-14.5); WBC 7.1 10x3/uL (4.8-10.8)
[2020-03-25 10:52] LABS: PLATELET COUNT 267 10x3/uL (130-400)
[2020-03-25 10:55] LABS: APTT 30.8 SECONDS (22.8-39.4); INR 0.96 (0.85-1.17); PROTIME 12.7 SECONDS (11.6-15.0)
[2020-03-27 08:29] VITALS: BP 114/72; BMI 22.8
[2020-03-27 14:18] VITALS: BP 129/54
--- NOTE | 2020-03-27 14:26 | NUR ---
RECEIVED PATIENT FROM RECOVERY VIA BED ACCOMPANIED BY STAFF. C/O PAIN TO LEFT SHOULDER 08/16, GAVE NORCO FOR PAIN. NO S/S OF ACUTE DISTRESS NOTED. VITALS STABLE. DRESSING TO SHOULDER C/D/I. IV TO RIGHT FOOT, 1/2 NS INFUSING @ 75ML/HR. SITE PATENT WITHOUT REDNESS OR SWELLING. ALERT AND ORIENTED. DENIES ANY NEEDS AT THIS TIME. CALL LIGHT IN REACH. WILL CONTINUE TO MONITOR.
--- NOTE | 2020-03-27 14:27 | NUR ---
I have reviewed this patient and I concur with the Shift Assessment completed by the Licensed Practical Nurse today this shift.
[2020-03-27 14:59] VITALS: BP 129/54; Ht 172.7 cm; Wt 68.2 kg
--- NOTE | 2020-03-27 15:30 | MORECARE ---
CASE MANAGEMENT DISCHARGE SUMMARY PATIENT: FABIAN CORTEZ UNIT: [id number] ADM DATE: 03/27/20 AGE: 69 : 52 SEX: F ROOM/BED: D.1204 AUTHOR: ONEIL SIU PHYSICIAN: REFERRING PHYSICIAN: MECCA THOMAS MD DATE OF SERVICE: 03/27/20 Discharge Plan Patient Name: FABIAN CORTEZ Facility: [facility]:[place] : 1950 Planned Disposition: Home Anticipated Discharge Date: 03/28/20 Discharge Date: Expected LOS: 1 Initial Reviewer: [email or web address] Initial Review Date: 03/27/2020 Generated: 03/27/20 4:29 pm Patient Name: FABIAN CORTEZ Page [id number] at 1530 All edits/amendments must be made on the electronic document DICTATION DATE: 03/27/20 1529 MALL MANAGER: FELICITA 03/27/20 1529 RPT#: [id number] DC DATE: STATUS: ADM IN [facility] [address] [place] [address] END OF REPORT
--- NOTE | 2020-03-27 15:59 | MORECARE ---
CASE MANAGEMENT DISCHARGE SUMMARY PATIENT: FABIAN CORTEZ UNIT: [id number] ADM DATE: 03/27/20 AGE: 69 : 52 SEX: F ROOM/BED: D.1204 AUTHOR: ONEIL SIU PHYSICIAN: REFERRING PHYSICIAN: MECCA THOMAS MD DATE OF SERVICE: 03/27/20 Discharge Plan Patient Name: FABIAN CORTEZ Facility: [facility]:[place] : 1950 Planned Disposition: Home Anticipated Discharge Date: 03/28/20 Discharge Date: Expected LOS: 1 Initial Reviewer: [email or web address] Initial Review Date: 03/27/2020 Generated: 03/27/20 4:59 pm Last DP export: 03/27/20 2:30 p Patient Name: FABIAN CORTEZ Page [id number] at 1559 All edits/amendments must be made on the electronic document DICTATION DATE: 03/27/201558 MATHEMATICS INSTRUCTOR: FELICITA 03/27/20 1559 RPT#: [id number] DC DATE: STATUS: ADM IN [facility] [address] [place] [address] END OF REPORT
--- NOTE | 2020-03-27 18:52 | NUR ---
ALERT AND ORIENTED. NO C/O PAIN, DILAUDID MAINTENANCE CHIEF MANAGING PAIN AT THIS TIME. NO S/S OF ACUTE DISTRESS NOTED. DENIES ANY NEEDS AT THIS TIME. CALL LIGHT IN REACH. WILL CONTINUE TO MONITOR.
--- NOTE | 2020-03-27 19:05 | NUR ---
PATIENT ALERT AND ORIENTED WATCHING TV WHEN ENTERING THE ROOM. THE PATIENT HAS A LEFT SHOULDER SLING WITH UPPER SHOULDER INCISION. CURRENTLY IN IMMOBILIZER. PATIENT STATES, "MY HAND IS STILL PRETTY NUMB". BARELY ABLE TO MOVE FINGERS ON COMMAND, BUT DIGITS ARE WARM TO TOUCH WITH POSITIVE CAPILLARY REFILL. STRONG RADIAL PULSE WITH REGULAR RATE AND RHYTHM NOTED. PATIENT HAS RIGHT FOOT, 22G IV THAT APPEARS PATENT AND INFUSING WITH NO SIGNS OF INFILTRATION OR OCCULSION NOTED. CURRENTLY HAS TURNING MACHINE SET UP OPERATOR, CHECKED ORDERS FOR APPROPRIATE RATE. HEAD REMAINS AT 30 DEGREE ANGLE PER ORDER. DENIES FURTHER NEEDS AT THIS TIME. SCD'S ON BILATERALLY.CALL LIGHT IS CLOSE TO PATIENT. FALL PRECAUTIONS IN PLACE. CPOC.
--- NOTE | 2020-03-27 19:10 | NUR ---
CORRECTION TO 1905 NOTE, SCD TO THE LEFT LEG ONLY DUE TO RT FOOT IV.
[2020-03-27 20:00] VITALS: BP 103/82
--- NOTE | 2020-03-27 20:30 | NUR ---
HIBBA CLEANSER PERFORMED PER UNIT PROTOCAL. PATIENT TOLERATED WELL. DENIES FURTHER NEEDS AT THIS TIME. CPOC.
--- NOTE | 2020-03-28 00:05 | NUR ---
AMBULATES TO BATHROOM STAND BY ASSIST. PATIENT AMBULATES WELL. RETURNED BACK TO BED SAFELY. DENIES FURTHER NEEDS AT THIS TIME. CALL LIGHT CLOSE TO PATIENT. CPOC.
[2020-03-28 04:00] VITALS: BP 102/54
--- NOTE | 2020-03-28 05:45 | NUR ---
PATIENT DISCLOSED SHE IS WORRIED ABOUT DISCHARGING TODAY. STATES SHE HAS NO ONE AT HOME RIGHT NOW TO HELP HER. STATES HER WILL BE HOME EARLY TUESDAY MORNING. ENCOURAGED PATIENT TO SPEAK WITH TELEGRAPHIC TYPEWRITER OPERATOR OR MD ABOUT CONCERNS. PATIENT STATES UNDERSTANDING. CPOC.
[2020-03-28 05:53] LABS: HEMATOCRIT 33.4 % (36.0-48.0); HEMOGLOBIN 10.6 g/dL (12-16); MCH 29.5 pg (26.0-34.0); MCHC 31.7 g/dL (31.0-37.0); MEAN PLATELET VOLUME 10.3 fL (7.4-10.4); RBC 3.59 10x6/uL (4.00-5.40); RDW 13.5 % (11.5-14.5)
--- NOTE | 2020-03-28 07:45 | NUR ---
PT SITTING UP IN BED WATCHING TV. RESP EVEN AND UNLABORED. REPORTS PAIN 2/10 AT THIS TIME. PAIN CONTROLLED BY DILAUDID RETURNS SUPERVISOR. DRESSING C/D/I TO LEFT SHOULDER. SLING IN PLACE TO IMMOBILIZE EXTREMITY. PT CONTINUES TO VOICE NUMBNESS TO FINGERS AND HAND OF LEFT UPPER EXTREMITY. IV TO RIGHT FOOT WITH 1/2 NS @ 75ML/HR INFUSING VIA PUMP. SITE WITHOUT REDNESS OR EDEMA. PT DENIES FURTHER NEEDS AT THIS TIME. CL WITHIN REACH. ENCOURAGED TO CALL WITH NEEDS. CONTINUE POC
[2020-03-28 08:00] VITALS: BP 104/51
[2020-03-28 11:50] VITALS: BP 101/66
--- NOTE | 2020-03-28 14:41 | MORECARE ---
CASE MANAGEMENT DISCHARGE SUMMARY PATIENT: LAURIE CORRAL UNIT: [id number] ADM DATE: 03/27/20 AGE: 69 : 52 SEX: F ROOM/BED: D.1204 AUTHOR: SALBADOR,DOC PHYSICIAN: REFERRING PHYSICIAN: MECCA THOMAS MD DATE OF SERVICE: 03/28/20 Discharge Plan Patient Name: LAURIE CORRAL Facility: [facility]:[place] : 1950 Planned Disposition: Home Anticipated Discharge Date: 03/28/20 Discharge Date: Expected LOS: 1 Initial Reviewer: [email or web address] Initial Review Date: 03/27/2020 Generated: 03/28/20 3:40 pm Comments DCP- Discharge Planning Updated by [email or web address]: Hayde Alfaro on 03/28/20 1:[address] CM met with patient to discuss initial discharge planning. Patient is in agreement to proceed with the assessment. Patient reports that she lives at home independently with her spouse. Patient is alert/oriented. Stairs/steps: 2/rails. PCP: Dr. Ela Meza. Pharmacy: [facility]. Patient states she has been able to obtain all of her prescribed medications. HHS: No. DME: None. Patient's emergency contact: Carlton Jameson (spouse) [phone]. 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 CM discussed the availability of HH, Rehab, SNF, OP Therapy, DME services. Patient denies the need for additional services at this time and feels safe returning to previous environment. Patient states that her is in [place] and will not be home until Thursday 03/29. States she has no other family to stay with her at this time.Patient denies hospitalization within the past 30 days. Patient denies the use of community resources CRIMINAL INVESTIGATOR. Transportation at time of discharge: Carlton (spouse). Patient voices no other needs at this time. DCPIA - Discharge Planning Initial Assessment Updated by [email or web address]: Hayde Alfaro on 03/28/20 2:38 pm * Is the patient Alert and Oriented? Yes * How many steps to enter\exit or inside your home? 2/rails * PCP Dr. Ela Meza * Pharmacy [facility] * Preadmission Environment Home with Family * ADLs Independent * Equipment None * Other Equipment NA * List name and contact numbers for known caregivers / representatives who currently or will assist patient after discharge: Carlton Jameson * Verbal permission to speak to the caregivers and representatives has been obtained from the patient. Yes * Community resources currently utilized None * Please name any agencies selected above. NA * Additional services required to return to the preadmission environment? No * Can the patient safely return to the preadmission environment? Yes * Has this patient been hospitalized within the prior 30 days at any hospital? No Coverage Notice Reviewer: [id number] Carlos Alberto Alfaro Notice Issued Date-Time: 03/28/2020 14:23 Notice Type: IM Discharge Notice Notice Delivered To: Patient Relationship to Patient: Self Business Department Chair Name: Laurie Corral Delivery Method: HAND - Hand Delivered Noemi Days: Prior Verbal Notification: Recipient Understood Notice: Yes Recipient Signature: Yes Med Rec Note Co-signed by Attending: Coverage Notice Comment: DC IMM signed/provided for patient. Original to chart. Last DP export: 03/27/20 2:59 p Patient Name: LAURIE CORRAL Page 15098 at 1441 All edits/amendments must be made on the electronic document DICTATION DATE: 03/28/20 144 MATERIALS ENGINEERING TECHNICIAN: FELICITA 03/28/20 1440 RPT#: [id number] DC DATE: STATUS: ADM IN [address] [place] [address] END OF REPORT
[2020-03-28 15:00] VITALS: BP 127/62
--- NOTE | 2020-03-28 16:06 | NUR ---
PT ASSISTED TO BATHROOM. VOIDED. BACK TO BED. LEFT ARM ELEVATED WITH ICE PACK ON IT. WILL CONTINUE TO MONITOR. NO OTHER NEEDS AT THIS TIME.
--- NOTE | 2020-03-28 16:57 | MORECARE ---
CASE MANAGEMENT DISCHARGE SUMMARY PATIENT: LAURIE CORRAL UNIT: [id number] ADM DATE: 03/27/20 AGE: 69 : 52 SEX: F ROOM/BED: D.1204 AUTHOR: SALBADOR,DOC PHYSICIAN: REFERRING PHYSICIAN: MECCA THOMAS MD DATE OF SERVICE: 03/28/20 Discharge Plan Patient Name: LAURIE CORRAL Facility: [facility]:[place] : 1950 Planned Disposition: Home Anticipated Discharge Date: 03/28/20 Discharge Date: Expected LOS: 1 Initial Reviewer: [email or web address] Initial Review Date: 03/27/2020 Generated: 03/28/20 5:56 pm Comments DCP- Discharge Planning Updated by [email or web address]: Hayde Alfaro on 03/28/20 1:[address] CM met with patient to discuss initial discharge planning. Patient is in agreement to proceed with the assessment. Patient reports that she lives at home independently with her spouse. Patient is alert/oriented. Stairs/steps: 2/rails. PCP: Dr. Ela Meza. Pharmacy: [facility]. Patient states she has been able to obtain all of her prescribed medications. HHS: No. DME: None. Patient's emergency contact: Carlton Jameson (spouse) [phone]. Patient is Independent with all ADL's, medication management FACTORY MAINTENANCE MANAGER. CM discussed the availability of HH, Rehab, SNF, OP Therapy, DME services. Patient denies the need for additional services at this time and feels safe returning to previous environment. Patient states that her is in [place] and will not be home until Thursday 03/29. States she has no other family to stay with her at this time.Patient denies hospitalization within the past 30 days. Patient denies the use of community resources FACTORY MAINTENANCE MANAGER. Transportation at time of discharge: Carlton (spouse). Patient voices no other needs at this time. DCPIA - Discharge Planning Initial Assessment Updated by [email or web address]: Hayde Alfaro on 03/28/20 2:38 pm * Is the patient Alert and Oriented? Yes * How many steps to enter\exit or inside your home? 2/rails * PCP Dr. Ela Meza * Pharmacy [facility] * Preadmission Environment Home with Family * ADLs Independent * Equipment None * Other Equipment NA * List name and contact numbers for known caregivers / representatives who currently or will assist patient after discharge: Carlton Jameson * Verbal permission to speak to the caregivers and representatives has been obtained from the patient. Yes * Community resources currently utilized None * Please name any agencies selected above. NA * Additional services required to return to the preadmission environment? No * Can the patient safely return to the preadmission environment? Yes * Has this patient been hospitalized within the prior 30 days at any hospital? No Coverage Notice Reviewer: [email or web address] Carlos Alberto Alafro Notice Issued Date-Time: 03/28/2020 14:23 Notice Type: IM Discharge Notice Notice Delivered To: Patient Relationship to Patient: Self Dough Mixer Name: Laurie Corral Delivery Method: HAND - Hand Delivered Noemi Days: Prior Verbal Notification: Recipient Understood Notice: Yes Recipient Signature: Yes Med Rec Note Co-signed by Attending: Coverage Notice Comment: DC IMM signed/provided for patient. Original to chart. Last DP export: 03/28/20 1:41 p Patient Name: LAURIE CORRAL Page 11650 at 1657 All edits/amendments must be made on the electronic document DICTATION DATE: 03/28/201655 CELL FEED DEPARTMENT SUPERVISOR: FELICITA 03/28/201655 RPT#: [id number] DC DATE: STATUS: ADM IN [facility] [address] [place] [address] END OF REPORT
--- NOTE | 2020-03-28 19:15 | NUR ---
PT SITTING UP IN BED SLEEPING, WITHOUT DISTRESS. SCD TO LEFT LEG. IV RIGHT FOOT. LEFT ARM PROPPED ON PILLOW. WILL CTM
[2020-03-28 20:00] VITALS: BP 128/71
--- NOTE | 2020-03-28 20:00 | NUR ---
PT WITH 102 TEMP, VERY HOT IN ROOM. REMOVED BLANKETS AND TURNED COOL AIR ON. PLACED COOL RAG ON HEAD. PT STATES PAIN 10/10. GAVE NORCO ORDERED. APPLIED ICE PACK TO LEFT SHOULDER. ENCOURAGED PT TO USE INCENTIVE SPIROMETER. PT SOUNDS CONGESTED AND HAS VERY WEAK COUGH. PT ABLE TO USE IS 3 TIMES BEFORE STATING SHE HURT TOO BAD TO CONTINUE. EFFORTS WERE WEAK. O2 83% ON RA. APPLIED 2L/NC. PT O2 CAME UP TO 95% WITH DEEP BREATHS. ASSISTED PT IN REPOSITIONING MORE UPRIGHT IN BED. LEFT SHOULDER PROPPED HIGHER ON PILLOWS. WILL CTM
--- NOTE | 2020-03-28 21:00 | NUR ---
TEMP 98.8 ON RECHECK
[2020-03-29] VITALS: BP 113/55
[2020-03-29 04:30] VITALS: BP 106/68
[2020-03-29 06:25] LABS: HEMATOCRIT 34.8 % (36.0-48.0); HEMOGLOBIN 10.9 g/dL (12-16); MCH 29.5 pg (26.0-34.0); MCHC 31.3 g/dL (31.0-37.0); MCV 94.3 fL (80.0-100.0); MEAN PLATELET VOLUME 10.4 fL (7.4-10.4); RBC 3.69 10x6/uL (4.00-5.40); RDW 13.5 % (11.5-14.5)
[2020-03-29 06:26] LABS: WBC 8.9 10x3/uL (4.8-10.8)
--- NOTE | 2020-03-29 07:35 | NUR ---
PT RESTING IN BED WITH HOB ELEVATED 35 DEGREES. PT RESTLESS, REPORTS PAIN 8/10 AT THIS TIME. DISCUSSED NEXT DOSE DUE PER MD ORDERS. PT VOICES UNDERSTANDING. ICE APPLIED TO LEFT SHOULDER, SLING INTACT. LEFT UPPER EXT REPOSITIONED TO AID IN PAIN RELIEF. DRESSING INTACT TO LEFT SHOULDER. O2 @ 1.5L IN PLACE. PT USING COUGHING AND DEEP BREATHING EXERCISES. SALINE LOC TO RIGHT FOOT, SITE WITHOUT REDNESS OR EDEMA, EASILY FLUSHED. DENIES FURTHER NEEDS AT THIS TIME. CL WITHIN REACH. ENCUORGED TO CALL WITH NEEDS. CONTINUE POC
[2020-03-29 08:19] VITALS: BP 114/57
--- NOTE | 2020-03-29 08:56 | NUR ---
PT ADMINISTERED MORNING MEDICATIONS PER MD ORDERS. PT VOICES COMPLAINTS OF NAUSEA. ZOFRAN ADMINISTERED VIA IV. PT NOT RESTLESS. DENIES FURTHER NEEDS AT THIS TIME. CL WITHIN REACH.
--- NOTE | 2020-03-29 10:01 | NUR ---
PT CALLED STAFF TO ROOM. ASK STAFF TO REPOSITION SHE CAN NOT FIND A COMFORTABLE POSITION. PAIN MEDICATION ADMINISTERED PER MD ORDERS. PT REPORTS DECREASED NAUSEA. CL WITHIN REACH. ENCOURAGED TO CALL WITH FURTHER NEEDS.
--- NOTE | 2020-03-29 10:20 | NUR ---
DR. THOMAS PRESENT FOR ROUNDING. UPON ASKING WELL BEING OF PT AND PENDING DISCHARGE HOME, INFORMED DR. THOMAS OF PT TEMP ELEVATION DURING NIGHT AND NEED FOR O2. HE VOICES THAT HE WILL BE SENDING PT HOME ON THIS DATE. SEEN PT ASSESSED HER AND WELL BEING AND INFORMS PT WILL BE GOING HOME. REQUEST FOR HOMEHEALTH MADE BY PT. STATES THAT HE WILL PUT IN FOR HOME HEALTH CONSULT.
[2020-03-29] MEDS ORDERED: HYDROCODON-ACE1 EA10 PO (10:48)
[2020-03-29 11:53] VITALS: BP 102/63
--- NOTE | 2020-03-29 14:00 | NUR ---
PT DISCHARGE INFORMATION PROVIDED TO PT. DISCUSSED NEED TO FOLLOW UP WITH DR. THOMAS AND TO CALL FOR FOLLOW UP APPOINTMENT ON TUESDAY MORNING THE OFFICE IS CLOSED. DRESSING CHANGED TO LEFT SHOULDER. CHRISTINE INTACT, SITE WITHOUT REDNESS, EDEMA OR DRAINAGE. SALINE LOC DISCONTINUED FROM RIGHT FOOT. CATH INTACT. DISCUSSED HOME HEALTH AND THAT ASSESSMENT WOULD BE DONE ON 03/30 OR 03/31/2020. PT VOICES UNDERSTANDING, DENIES ANY QUESTIONS
--- NOTE | 2020-03-29 14:20 | MORECARE ---
CASE MANAGEMENT DISCHARGE SUMMARY PATIENT: LAURIE CORRAL UNIT: [id number] ADM DATE: 03/27/20 AGE: 69 : 52 SEX: F ROOM/BED: D.1204 AUTHOR: SALBADOR,DOC PHYSICIAN: REFERRING PHYSICIAN: MECCA THOMAS MD DATE OF SERVICE: 03/29/20 Discharge Plan Patient Name: LAURIE CORRAL Facility: [facility]:[place] : 1950 Planned Disposition: Home Anticipated Discharge Date: 03/28/20 Discharge Date: Expected LOS: 1 Initial Reviewer: [id number] Initial Review Date: 03/27/2020 Generated: 03/29/20 3:20 pm Comments DCP- Discharge Planning Updated by [id number]: Hayde Alfaro on 03/28/20 1:[address] CM met with patient to discuss initial discharge planning. Patient is in agreement to proceed with the assessment. Patient reports that she lives at home independently with her spouse. Patient is alert/oriented. Stairs/steps: 2/rails. PCP: Dr. Ela Meza. Pharmacy: [facility]. Patient states she has been able to obtain all of her prescribed medications. HHS: No. DME: None. Patient's emergency contact: Carlton Jameson (spouse) [phone]. 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 CM discussed the availability of HH, Rehab, SNF, OP Therapy, DME services. Patient denies the need for additional services at this time and feels safe returning to previous environment. Patient states that her is in [place] and will not be home until Thursday 03/29. States she has no other family to stay with her at this time.Patient denies hospitalization within the past 30 days. Patient denies the use of community resources SENIOR MEDIA BUYER. Transportation at time of discharge: Carlton (spouse). Patient voices no other needs at this time. DCPIA - Discharge Planning Initial Assessment Updated by [id number]: Hayde Alfaro on 03/28/20 2:38 pm * Is the patient Alert and Oriented? Yes * How many steps to enter\exit or inside your home? 2/rails * PCP Dr. Ela Meza * Pharmacy [facility] * Preadmission Environment Home with Family * ADLs Independent * Equipment None * Other Equipment NA * List name and contact numbers for known caregivers / representatives who currently or will assist patient after discharge: Carlton Jameson * Verbal permission to speak to the caregivers and representatives has been obtained from the patient. Yes * Community resources currently utilized None * Please name any agencies selected above. NA * Additional services required to return to the preadmission environment? No * Can the patient safely return to the preadmission environment? Yes * Has this patient been hospitalized within the prior 30 days at any hospital? No External Providers External Provider: [facility] Contact Date: Service Request Date: Service Type: Resolution: Reviewer: Comments: Coverage Notice Reviewer: [id number] Carlos Alberto Alfaro Notice Issued Date-Time: 03/28/2020 14:23 Notice Type: IM Discharge Notice Notice Delivered To: Patient Relationship to Patient: Self Edge Drummer Name: Laurie Corral Delivery Method: HAND - Hand Delivered Noemi Days: Prior Verbal Notification: Recipient Understood Notice: Yes Recipient Signature: Yes Med Rec Note Co-signed by Attending: Coverage Notice Comment: DC IMM signed/provided for patient. Original to chart. Last DP export: 03/28/20 3:57 p Patient Name: LAURIE CORRAL Page [phone] at 1420 All edits/amendments must be made on the electronic document DICTATION DATE: 03/29/201419 SALES DEVELOPMENT COORDINATOR: FELICITA 03/29/20 142 RPT#: [id number] DC DATE: STATUS: ADM IN [facility] [address] [place] [address] END OF REPORT
--- NOTE | 2020-03-29 14:34 | MORECARE ---
CASE MANAGEMENT DISCHARGE SUMMARY PATIENT: LAURIE CORRAL UNIT: [id number] ADM DATE: 03/27/20 AGE: 69 : 54 SEX: F ROOM/BED: D.1204 AUTHOR: SALBADOR,DOC PHYSICIAN: REFERRING PHYSICIAN: MECCA THOMAS MD DATE OF SERVICE: 03/29/20 Discharge Plan Patient Name: LAURIE CORRAL Facility: [facility]:[place] : 1950 Planned Disposition: Home Anticipated Discharge Date: 03/28/20 Discharge Date: Expected LOS: 1 Initial Reviewer: [id number] Initial Review Date: 03/27/2020 Generated: 03/29/20 3:33 pm Comments DCP- Discharge Planning Updated by [id number]: Marialuisa Tiwari on 03/29/20 1:[address] CM notified that patient needs Home Health prior to discharge. KADIE signed for no preference. CM contacted [facility] in [place] [phone] fax [phone]. which covers the area in which patient lives. CM spoke with Urmila TORRES [phone] concrete inspector and she stated that they would be out to see patient either Tuesday or Tuesday. CM faxed records. CM will continue to follow and assess as needed for discharge planning / needs. DCP- Discharge Planning Updated by [email or web address]: Hayde Alfaro on 03/28/20 1:[address] CM met with patient to discuss initial discharge planning. Patient is in agreement to proceed with the assessment. Patient reports that she lives at home independently with her spouse. Patient is alert/oriented. Stairs/steps: 2/rails. PCP: Dr. Ela Meza. [facility] Patient states she has been able to obtain all of her prescribed medications. HHS: No. DME: None. Patient's emergency contact: Carlton Jameson (spouse) [phone]. 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 CM discussed the availability of HH, Rehab, SNF, OP Therapy, DME services. Patient denies the need for additional services at this time and feels safe returning to previous environment. Patient states that her is in [place] and will not be home until Thursday 03/29. States she has no other family to stay with her at this time.Patient denies hospitalization within the past 30 days. 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 Transportation at time of discharge: Carlton (spouse). Patient voices no other needs at this time. DCPIA - Discharge Planning Initial Assessment Updated by [id number]: Hayde Alfaro on 03/28/20 2:38 pm * Is the patient Alert and Oriented? Yes * How many steps to enter\exit or inside your home? 2/rails * PCP Dr. Ela Prakser * Pharmacy [facility] * Preadmission Environment Home with Family * ADLs Independent * Equipment None * Other Equipment NA * List name and contact numbers for known caregivers / representatives who currently or will assist patient after discharge: Carlton Jameson * Verbal permission to speak to the caregivers and representatives has been obtained from the patient. Yes * Community resources currently utilized None * Please name any agencies selected above. NA * Additional services required to return to the preadmission environment? No * Can the patient safely return to the preadmission environment? Yes * Has this patient been hospitalized within the prior 30 days at any hospital? No Coverage Notice Reviewer: [id number] - Hayde Alfaro Notice Issued Date-Time: 03/28/2020 14:23 Notice Type: IM Discharge Notice Notice Delivered To: Patient Relationship to Patient: Self Energy Attorney Name: Laurie Corral Delivery Method: HAND - Hand Delivered Noemi Days: Prior Verbal Notification: Recipient Understood Notice: Yes Recipient Signature: Yes Med Rec Note Co-signed by Attending: Coverage Notice Comment: DC IMM signed/provided for patient. Original to chart. Last DP export: 03/29/20 1:20 p Patient Name: LAURIE CORRAL Page [phone] at 1434 All edits/amendments must be made on the electronic document DICTATION DATE: 03/29/201432 HUMAN RESOURCE ADVISER: FELICITA 03/29/20 143 RPT#: [id number] DC DATE: STATUS: ADM IN [facility] [address] [place] [address] END OF REPORT
--- NOTE | 2020-03-29 14:47 | MORECARE ---
CASE MANAGEMENT DISCHARGE SUMMARY PATIENT: LAURIE CORRAL UNIT: [id number] ADM DATE: 03/27/20 AGE: 69 : 54 SEX: F ROOM/BED: D.1204 AUTHOR: SALBADOR,DOC PHYSICIAN: REFERRING PHYSICIAN: MECCA THOMAS MD DATE OF SERVICE: 03/29/20 Discharge Plan Patient Name: LAURIE CORRAL Facility: [facility]:[place] : 1950 Planned Disposition: Home Anticipated Discharge Date: 03/28/20 Discharge Date: 03/29/2020 Expected LOS: 1 Initial Reviewer: [email or web address] Initial Review Date: 03/27/2020 Generated: 03/29/20 3:47 pm Comments DCP- Discharge Planning Updated by [id number]: Marialuisa Tiwari on 03/29/20 1:[address] CM notified that patient needs Home Health prior to discharge. KADIE signed for no preference. CM contacted [facility] in [place] [phone] fax [phone]. which covers the area in which patient lives. CM spoke with Urmila TORRES [phone] recruitment consultant and she stated that they would be out to see patient either Tuesday or Tuesday. CM faxed records. CM will continue to follow and assess as needed for discharge planning / needs. DCP- Discharge Planning Updated by [id number]: Hayde Alfaro on 03/28/20 1:[address] CM met with patient to discuss initial discharge planning. Patient is in agreement to proceed with the assessment. Patient reports that she lives at home independently with her spouse. Patient is alert/oriented. Stairs/steps: 2/rails. PCP: Dr. Ela Meza. [facility]. Patient states she has been able to obtain all of her prescribed medications. HHS: No. DME: None. Patient's emergency contact: Carlton Jameson (spouse) [phone]. 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 CM discussed the availability of HH, Rehab, SNF, OP Therapy, DME services. Patient denies the need for additional services at this time and feels safe returning to previous environment. Patient states that her is in [place] and will not be home until Thursday 03/29. States she has no other family to stay with her at this time.Patient denies hospitalization within the past 30 days. 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 Transportation at time of discharge: Carlton (spouse). Patient voices no other needs at this time. DCPIA - Discharge Planning Initial Assessment Updated by [id number]: Hayde Alfaro on 03/28/20 2:38 pm * Is the patient Alert and Oriented? Yes * How many steps to enter\exit or inside your home? 2/rails * PCP Dr. Ela King-randier * Pharmacy [facility] * Preadmission Environment Home with Family * ADLs Independent * Equipment None * Other Equipment NA * List name and contact numbers for known caregivers / representatives who currently or will assist patient after discharge: Carlton Jameson * Verbal permission to speak to the caregivers and representatives has been obtained from the patient. Yes * Community resources currently utilized None * Please name any agencies selected above. NA * Additional services required to return to the preadmission environment? No * Can the patient safely return to the preadmission environment? Yes * Has this patient been hospitalized within the prior 30 days at any hospital? No Coverage Notice Reviewer: [id number] - Hayde Alfaro Notice Issued Date-Time: 03/28/2020 14:23 Notice Type: IM Discharge Notice Notice Delivered To: Patient Relationship to Patient: Self Hot Walker Name: Laurie Corral Delivery Method: HAND - Hand Delivered Noemi Days: Prior Verbal Notification: Recipient Understood Notice: Yes Recipient Signature: Yes Med Rec Note Co-signed by Attending: Coverage Notice Comment: DC IMM signed/provided for patient. Original to chart. Last DP export: 03/29/20 1:34 p Patient Name: LAURIE CORRAL Page [phone] at 1447 All edits/amendments must be made on the electronic document DICTATION DATE: 03/29/20 1447 AVIONICS ENGINEER: FELICITA 03/29/20 1447 RPT#: [id number] DC DATE:03/29/20 STATUS: DIS IN [id number] [place] [address] END OF REPORT
--- NOTE | 2020-04-01 11:16 | OP ---
PATIENT NAME: FABIAN CORTEZ MEDICAL RECORD: [id number] :54 LOCATION:D.M3 D.1204 ADMISSION DATE:03/27/20 SURGEON: MECCA THOMAS MD DATE OF OPERATION: 03/27/2020 PREOPERATIVE DIAGNOSIS: Degenerative arthritis, left shoulder. POSTOPERATIVE DIAGNOSIS: Degenerative arthritis, left shoulder. PROCEDURE: Left total shoulder arthroplasty. SURGEON: Mecca Thomas MD RESTRICTIVE PREPARATION OPERATOR: WILLIAM Madden ANESTHESIA: General endotracheal. INTRAOPERATIVE COMPLICATIONS: None. SUMMARY OF PATHOLOGIC FINDINGS: The patient was indeed found to have arthritis actually more so on the glenoid side then on the humeral side grade IV. IMPLANTS USED: The Arthrex Univers II system. OPERATIVE SUMMARY IN DETAIL: After obtaining the appropriate preoperative orthopedic surgery consent as well as anesthetic consultation, evaluation, and clearance, the patient was brought to the operating room and placed on the operating table in supine position. After adequate general laryngeal mask airway was administered, the patient was placed in beach chair position. All pressure points were well padded to include bilateral lower extremities. She was held firmly to the operating room table using the vacuum pack suction system. Left upper extremity were then prepped and draped in routine sterile fashion. The arm was held in the Trimano arm holding device. Deltopectoral incision was taken down. The cephalic vein was identified and protected throughout the entire case. Brown retractor was utilized to retract the deltoid laterally and the conjoint tendon was retracted medially, very carefully using the PCL. The subscapularis peel was then utilized. The biceps tendon was cut for later tenodesis and the shoulder was then dislocated into the wound for proximal humeral cutting. After osteophytes were removed, proximal humeral cut was made. The decision was made at this point to not proceed with the stemless arthroplasty as the patient was obviously too osteoporotic for that. Serial and sequential reaming and broaching were done for the appropriate size short apex stem. The trial was left in place with the humeral head protection guide and then the glenoid was thusly approach. The patient had a very small glenoid. Circumferential labrectomy was followed by preparation for the glenoid component with a VaultLock system. The prepared glenoid was irrigated and the final glenoid was cemented into place. After all excess cement was removed, attention was returned to the proximal humerus. Final humerus was tamped into place. Inferior and superior set screw were followed by placement of the appropriate size humeral head offset in the appropriate position for maximum coverage. The shoulder was reduced, taken through range of motion and found to be stable with appropriate amount of posterior subluxation. At this point, the subscapularis was reapproximated to the lesser tuberosity in a transosseous fashion with #2 Ethibond incorporating the biceps tenodesis. Final closure was achieved with #1 Vicryl, 2-0 Vicryl and skin narayan. Please note that a gram of vancomycin and OPERATIVE REPORT [id number] FABIAN CORTEZ a gram of tobramycin were placed in to the wound before closure. Sterile dressings were applied. The patient was awakened and taken to the recovery room in stable condition. All final needle and sponge counts were correct. TRANSINT:[id number] Voice Confirmation ID: [id number] DOCUMENT ID: [id number] MARTHA FORTUNE, MECCA BIGGS at 1116 CC: [id number] DICTATION DATE: 03/31/20 165 STEEL FABRICATING SUPERVISOR: 04/01/20 0202 DIS IN 03/29/20 [facility] [address] [place] [address]
--- NOTE | 2020-04-01 11:42 | MORECARE ---
CASE MANAGEMENT DISCHARGE SUMMARY PATIENT: LAURIE CORRAL UNIT: [id number] ADM DATE: 03/27/20 AGE: 69 : 54 SEX: F ROOM/BED: D.1204 AUTHOR: SALBADOR,DOC PHYSICIAN: REFERRING PHYSICIAN: MECCA THOMAS MD DATE OF SERVICE: 04/01/20 Discharge Plan Patient Name: LAURIE CORRAL Facility: [facility]:[place] : 1950 Planned Disposition: Home Anticipated Discharge Date: 03/28/20 Discharge Date: 03/29/2020 Expected LOS: 1 Initial Reviewer: [id number] Initial Review Date: 03/27/2020 Generated: 04/01/20 12:42 pm Comments DCP- Discharge Planning Updated by [email or web address]: Marialuisa Tiwari on 03/29/20 1:[address] CM notified that patient needs Home Health prior to discharge. KADIE signed for no preference. CM contacted [facility] in [place] [phone] fax [phone]. which covers the area in which patient lives. CM spoke with Urmila TORRES [phone] materials planner/production planner and she stated that they would be out to see patient either Tuesday or Tuesday. CM faxed records. CM will continue to follow and assess as needed for discharge planning / needs. DCP- Discharge Planning Updated by [email or web address]: Hayde Alfaro on 03/28/20 1:[address] CM met with patient to discuss initial discharge planning. Patient is in agreement to proceed with the assessment. Patient reports that she lives at home independently with her spouse. Patient is alert/oriented. Stairs/steps: 2/rails. PCP: Dr. Ela Meza. [facility]. Patient states she has been able to obtain all of her prescribed medications. HHS: No. DME: None. Patient's emergency contact: Carlton Jameson (spouse) [phone]. 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 CM discussed the availability of HH, Rehab, SNF, OP Therapy, DME services. Patient denies the need for additional services at this time and feels safe returning to previous environment. Patient states that her is in [place] and will not be home until Thursday 03/29. States she has no other family to stay with her at this time.Patient denies hospitalization within the past 30 days. 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 Transportation at time of discharge: Carlton (spouse). Patient voices no other needs at this time. DCPIA - Discharge Planning Initial Assessment Updated by [email or web address]: Hayde Alfaro on 03/28/20 2:38 pm * Is the patient Alert and Oriented? Yes * How many steps to enter\exit or inside your home? 2/rails * PCP Dr. Ela King-randier * Pharmacy [facility] * Preadmission Environment Home with Family * ADLs Independent * Equipment None * Other Equipment NA * List name and contact numbers for known caregivers / representatives who currently or will assist patient after discharge: Carlton Jameson * Verbal permission to speak to the caregivers and representatives has been obtained from the patient. Yes * Community resources currently utilized None * Please name any agencies selected above. NA * Additional services required to return to the preadmission environment? No * Can the patient safely return to the preadmission environment? Yes * Has this patient been hospitalized within the prior 30 days at any hospital? No Coverage Notice Reviewer: [id number] - Hayde Alfaro Notice Issued Date-Time: 03/28/2020 14:23 Notice Type: IM Discharge Notice Notice Delivered To: Patient Relationship to Patient: Self School Commissioner Name: Laurie Corral Delivery Method: HAND - Hand Delivered Noemi Days: Prior Verbal Notification: Recipient Understood Notice: Yes Recipient Signature: Yes Med Rec Note Co-signed by Attending: Coverage Notice Comment: DC IMM signed/provided for patient. Original to chart. Last DP export: 03/29/20 1:47 p Patient Name: LAURIE CORRAL Page [phone] at 1142 All edits/amendments must be made on the electronic document DICTATION DATE: 04/01/20 1142 RISK ENGINEER: FELICITA 04/01/20 1142 RPT#: [id number] DC DATE:03/29/20 STATUS: DIS IN [id number] [place] [address] END OF REPORT
== END 2020-03-29 14:39 | disposition home health service (06) | DRG 483 ==
LOC: D.SDCHOLD 03-12 07:45 → D.M3 03-27 07:35 → D.SDCHOLD 03-27 09:00 → D.M3 03-27 13:54
PROVIDERS: ADMIT Orthopaedic Surgery; ATTEND Orthopaedic Surgery
PROC: 0RRK0JZ Replacement of Left Shoulder Joint with Synthetic Substitute, Open Approach (ICD-10-PCS; principal; 2020-03-27 10:15)
DX: M19.012 Primary osteoarthritis, left shoulder (principal)

== ENCOUNTER 2020-04-07 11:13 | Inpatient (IN) | payer MEDICARE ==
[~2020-04-07] VITALS: Ht 172.7 cm; Wt 73.9 kg
[~2020-04-07 11:13] MED LIST changes: +NEURONTIN600 MG PO
--- NOTE | 2020-04-07 11:59 | NUR ---
BS 86 IN FIELD
[2020-04-07 12:00] VITALS: BP 116/71
[2020-04-07 12:02] LABS: BILIRUBIN NEGATIVE (NEGATIVE); GLUCOSE NEGATIVE (NEGATIVE); KETONE NEGATIVE (NEGATIVE); NITRITE NEGATIVE (NEGATIVE); SPECIFIC GRAVITY 1.015 (1.005-1.020); UROBILINOGEN NORMAL (NORMAL)
[2020-04-07 12:03] LABS: BACTERIA MODERATE /hpf (NEGATIVE); EPITHELIAL CELLS OCC /hpf (0-5); RED CELLS - URINE OCC /hpf (0-5)
[2020-04-07 12:30] LABS: UDS - AMPHET NEGATIVE QUAL (NEGATIVE); UDS - BARB NEGATIVE QUAL (NEGATIVE); UDS - BENZO POSITIVE QUAL (NEGATIVE); UDS - COCAINE NEGATIVE QUAL (NEGATIVE); UDS - OPIATE POSITIVE QUAL (NEGATIVE); UDS - PCP NEGATIVE QUAL (NEGATIVE); UDS - THC NEGATIVE QUAL (NEGATIVE)
--- NOTE | 2020-04-07 12:41 | NUR ---
SHADIA VIDALES PLACED BY ER PROVIDER, BLOOD SPECIMEN OBTAINED AND SENT TO LAB.
[2020-04-07 12:55] LABS: APTT 30.5 SECONDS (22.8-39.4); BASOPHILS 0.3 % (0-2); EOSINOPHILS 2.7 % (0-7); HEMATOCRIT 34.6 % (36.0-48.0); HEMOGLOBIN 10.9 g/dL (12-16); IMMATURE GRANULOCYTES 0.3 % (0-5); INR 0.99 (0.85-1.17); LYMPHOCYTES 35.5 % (15-50); MCH 29.5 pg (26.0-34.0); MCHC 31.5 g/dL (31.0-37.0); MCV 93.8 fL (80.0-100.0); MEAN PLATELET VOLUME 9.8 fL (7.4-10.4); NEUTROPHILS 53.2 % (40-80); RBC 3.69 10x6/uL (4.00-5.40); RDW 13.3 % (11.5-14.5)
[2020-04-07 12:56] LABS: PLATELET COUNT 384 10x3/uL (130-400)
[2020-04-07 12:57] LABS: CALC OSMOLALITY 277 mosm/kg (275-300); CALCIUM 9.2 mg/dL (8.5-10.1); CARBON DIOXIDE 28.4 mmol/L (21.0-32.0); CHLORIDE - SERUM 106 mmol/L (98-107); CREATININE - SERUM 0.7 mg/dL (0.6-1.3); GLUCOSE 93 mg/dL (74-106); POTASSIUM - SERUM 4.1 mmol/L (3.5-5.1); SODIUM 140 mmol/L (136-145); UREA NITROGEN 11 mg/dL (7-18); eGFR NON AFRICAN AMERICAN 88 mL/min (90-120)
[2020-04-07 13:00] VITALS: BP 134/79
[2020-04-07 13:14] LABS: ALBUMIN 2.7 g/dL (3.4-5.0); ALKALINE PHOSPHATASE 113 U/L (30-120); ALT (SGPT) 18 U/L (10-68); CKMB 1.3 U/L (0.0-3.6); CREATINE KINASE 62 UL (21-215); MAGNESIUM - SERUM 2.1 mg/dL (1.8-2.4); PROTEIN - SERUM 6.7 g/dL (6.4-8.2); THYROID STIMULATING HORMONE 1.67 uIU/mL (0.36-3.74); TROPONIN-I < 0.017 ng/mL (0.000-0.060)
[2020-04-07] MEDS ORDERED: CYCLOBENZAPRINE5 MG PO (13:41)
[2020-04-07 14:00] VITALS: BP 127/75
--- NOTE | 2020-04-07 15:01 | NUR ---
PT RECIEVED FROM ER VIA STRETCHER, AWAKE ALERT AND ORIENTED. RESP EVEN AND UNLABORED. IV TO RIGHT NECK WITH NS @ 125ML/HR INFUSING VIA PUMP. SITE WITHOUT REDNESS OR EDEMA. DRESSING C/D/I TO LEFT SHOULD FROM PREVIOUS SHOULDER SURGER 1 WEEK AGO. PT REPORTS WEAKNESS AND DIZZINESS WITH FALL AT HOME. TAM FALL MAT IN PLACE. ORIENTED TO CL, BED CONTROLS AND ROOM. DENIES FURTHER QUESTIONS AT THIS TIME. ENCOURAGED TO CALL WITH NEEDS.
[2020-04-07 17:13] VITALS: BP 118/75; BMI 22.8
--- NOTE | 2020-04-07 19:31 | NUR ---
SPOKE WITH THERON LANGSTON IN REGARDS TO THE PATIENT'S REQUEST FOR VALIUM. KIAN ORDERED PATIENT'S HOME DOSE OF VALIUM.
--- NOTE | 2020-04-07 19:38 | NUR ---
NATO LANGSTON APRN IN REGARDS TO PATIENT'S REQUEST FOR HOME GABAPENTIN
--- NOTE | 2020-04-07 19:43 | NUR ---
THERON LANGSTON ORDERED A ONE TIME DOSE OF GABAPENTIN FOR TONIGHT.
[2020-04-07 20:41] VITALS: BP 112/61
--- NOTE | 2020-04-07 20:53 | NUR ---
NOTIFIED BY LAB THAT TECH WAS UNABLE TO OBTAIN BLOOD CULTURE SAMPLES. SHE STATED THAT ANOTHER TECH WILL BE IN AT 2100 AND THAT TECH WILL ATTEMPT TO OBTAIN SAMPLES WHEN THEY ARRIVE.
[2020-04-07 23:45] VITALS: BP 119/58
--- NOTE | 2020-04-07 23:55 | NUR ---
NOTIFIED THERON LANGSTON THAT TWO LAB TECHS WERE UNABLE TO DRAW PATIENT'S BLOOD CULTURES. KIAN STATED TO HAVE BLOOD CULTURES ATTEMPTED AGAIN IN THE AM WITH MORNING LABS. KIAN ALSO ORDERED ROCEPHIN.
[2020-04-08 04:00] VITALS: BP 149/85
--- NOTE | 2020-04-08 05:04 | NUR ---
PATIENT REFUSED MORNING LAB DRAW
--- NOTE | 2020-04-08 07:48 | NUR ---
ALERT AND ORIENTED. LUNGS CLEAR BILATERALLY. HEART SOUNDS S1 AND S2 HEARD IN ALL ABRAMS. BOWEL SOUNDS ACTIVE X 4. IV TO RIGHT EJ PATENT WITHOUT REDNESS. DRSG TO LEFT SHOULDER C/D/I. DENIES NEEDS. BED LOW. FALL PRECAUTIONS IN PLACE. CALL RICHARDS AND PERSONAL ITEMS IN REACH. WILL CONTINUE TO MONITOR.
[2020-04-08 08:24] VITALS: BP 132/73
[2020-04-08] MEDS ORDERED: HYDROCODON-ACE1 EAC7 PO (10:59)
--- NOTE | 2020-04-08 12:21 | NUR ---
CHRISTINE DC PER ORDER.
[2020-04-08 12:54] VITALS: BP 128/72
[2020-04-08 13:16] LABS: BASOPHILS 0.2 % (0-2); EOSINOPHILS 2.2 % (0-7); HEMATOCRIT 37.6 % (36.0-48.0); HEMOGLOBIN 11.8 g/dL (12-16); IMMATURE GRANULOCYTES 0.6 % (0-5); LYMPHOCYTES 29.3 % (15-50); MCH 29.6 pg (26.0-34.0); MCHC 31.4 g/dL (31.0-37.0); MCV 94.2 fL (80.0-100.0); MONOCYTES 6.7 % (2-11); RBC 3.99 10x6/uL (4.00-5.40); RDW 13.2 % (11.5-14.5); WBC 5.4 10x3/uL (4.8-10.8)
[2020-04-08 13:20] LABS: PLATELET COUNT 290 10x3/uL (130-400)
[2020-04-08 13:47] LABS: ALBUMIN 2.9 g/dL (3.4-5.0); ALKALINE PHOSPHATASE 119 U/L (30-120); ALT (SGPT) 17 U/L (10-68); CALC OSMOLALITY 278 mosm/kg (275-300); CALCIUM 8.9 mg/dL (8.5-10.1); CARBON DIOXIDE 23.9 mmol/L (21.0-32.0); CHLORIDE - SERUM 106 mmol/L (98-107); CREATININE - SERUM 0.8 mg/dL (0.6-1.3); GLUCOSE 124 mg/dL (74-106); PHOSPHOROUS 4.1 mg/dL (2.5-4.9); POTASSIUM - SERUM 4.3 mmol/L (3.5-5.1); PROTEIN - SERUM 6.4 g/dL (6.4-8.2); SODIUM 140 mmol/L (136-145); UREA NITROGEN 9 mg/dL (7-18); VALPROIC ACID (DEPAKOTE) 34.1 ug/mL (50.0-100.0); eGFR NON AFRICAN AMERICAN 76 mL/min (90-120)
[2020-04-08 15:10] VITALS: Ht 172.7 cm; Wt 73.9 kg
--- NOTE | 2020-04-08 15:24 | NUR ---
PATIENT GIVEN BATH AND BEDDING CHANGED. TEETH BRUSHED. DENIES FURTHER NEEDS.
[2020-04-08 16:38] VITALS: BP 127/65
[2020-04-08 20:00] VITALS: BP 117/64
[2020-04-09] VITALS: BP 127/64
[2020-04-09 05:14] LABS: BASOPHILS 0.5 % (0-2); EOSINOPHILS 3.2 % (0-7); HEMATOCRIT 33.9 % (36.0-48.0); HEMOGLOBIN 10.6 g/dL (12-16); IMMATURE GRANULOCYTES 0.2 % (0-5); LYMPHOCYTES 33.5 % (15-50); MCH 29.4 pg (26.0-34.0); MCHC 31.3 g/dL (31.0-37.0); MCV 94.2 fL (80.0-100.0); MONOCYTES 8.1 % (2-11); NEUTROPHILS 54.5 % (40-80); PLATELET COUNT 335 10x3/uL (130-400); RDW 13.3 % (11.5-14.5); WBC 6.2 10x3/uL (4.8-10.8)
[2020-04-09 05:48] LABS: CALC OSMOLALITY 278 mosm/kg (275-300); CARBON DIOXIDE 24.8 mmol/L (21.0-32.0); CHLORIDE - SERUM 108 mmol/L (98-107); CREATININE - SERUM 0.8 mg/dL (0.6-1.3); GLUCOSE 104 mg/dL (74-106); MAGNESIUM - SERUM 1.9 mg/dL (1.8-2.4); PHOSPHOROUS 3.8 mg/dL (2.5-4.9); SODIUM 140 mmol/L (136-145); eGFR NON AFRICAN AMERICAN 76 mL/min (90-120)
[2020-04-09 05:49] LABS: UREA NITROGEN 12 mg/dL (7-18)
--- NOTE | 2020-04-09 07:52 | NUR ---
ALERT AND ORIENTED. LUNGS CLEAR BILATERALLY. HEART SOUNDS S1 AND S2 HEARD IN ALL ABRAMS. BOWEL SOUNDS ACTIVE X 4. SURGICAL INCISION TO LEFT SHOULDER C/D/I. RIGHT EJ IV PATENT WIHTOUT REDNESS. DENIES NEEDS. BED ALARM REFUSAL SIGNED PER REQUEST. BED LOW. CALL RICHARDS AND PERSONAL ITEMS IN REACH. WILL CONITNUE TO MONITOR.
[2020-04-09 08:44] VITALS: BP 131/84
[2020-04-09 12:08] VITALS: BP 138/78
--- NOTE | 2020-04-09 12:36 | NUR ---
GOT PHONE CALL FROM URIEL IN LAB. STATES APTT GREATER THAN 200 WITH VENOUS DRAW. WILL NOTIFY DR COVARRUBIAS.
[2020-04-09] MEDS ORDERED: LEVOFLOXACIN500 MG PO (14:21)
--- NOTE | 2020-04-09 14:41 | MORECARE ---
CASE MANAGEMENT DISCHARGE SUMMARY PATIENT: FABIAN CORTEZ UNIT: [id number] ADM DATE: 04/07/20 AGE: 69 : 54 SEX: F ROOM/BED: D.2214 AUTHOR: ONEIL SIU PHYSICIAN: REFERRING PHYSICIAN: ANISHA MENDEZ MD DATE OF SERVICE: 04/09/20 Discharge Plan Patient Name: FABIAN CORTEZ Facility: [facility]:[place] : 1950 Planned Disposition: Home with Home Health Anticipated Discharge Date: Discharge Date: Expected LOS: Initial Reviewer: [email or web address] Initial Review Date: 04/07/2020 Generated: 04/09/20 3:40 pm Patient Name: FABIAN CORTEZ Page [id number] at 1441 All edits/amendments must be made on the electronic document DICTATION DATE: 04/09/20 1440 FOOD AND NUTRITION PROFESSOR: FELICITA 04/09/20 1440 RPT#: [id number] DC DATE: STATUS: ADM IN [facility] [address] [place] [address] END OF REPORT
--- NOTE | 2020-04-09 15:22 | NUR ---
PATIENT RECIEVED DC INSTRUCTIONS. VERBALIZED UNDERSTANDING. EXPLAINED PRESCRIPTION SENT TO [facility]. VERBALIZED UNDERSTANDING. IV REMOVED WITH CATH TIP INTACT. WAITING FOR WC FOR DC. CALL LIGHT WITHIN REACH.
--- NOTE | 2020-04-09 15:37 | NUR ---
PATIENT DC HOME WITH ALL BELONGINGS.
--- NOTE | 2020-04-09 15:39 | MORECARE ---
CASE MANAGEMENT DISCHARGE SUMMARY PATIENT: FABIAN CORTEZ UNIT: [id number] ADM DATE: 04/07/20 AGE: 69 : 52 SEX: F ROOM/BED: D.2214 AUTHOR: SALBADOR,DOC PHYSICIAN: REFERRING PHYSICIAN: ANISHA MENDEZ MD DATE OF SERVICE: 04/09/20 Discharge Plan Patient Name: FABIAN CORTEZ Facility: [facility]:[place] : 1950 Planned Disposition: Home with Home Health Anticipated Discharge Date: Discharge Date: 04/09/2020 Expected LOS: Initial Reviewer: [email or web address] Initial Review Date: 04/07/2020 Generated: 04/09/20 4:39 pm Comments DCP- Discharge Planning Updated by [email or web address]: Lissett De Paz on 04/09/20 2:[address] Patient Name: FABIAN CORTEZ Admission Status: ER Accout number: [id number] Admission Date: 04-07-2020 : 1950 Admission Diagnosis:PAIN IN LEFT SHOULDER Attending: BRITTNEY Current LOS: 2 Anticipated DC Date: Planned Disposition: Home with Home Health Primary Insurance: [employer] ADV Discharge Planning Comments: CM met with patient to complete initial dc planning assessment. CM educated patient on the CM role and verbal consent given by patient to complete assessment. Patient lives at home with spouse where she is independent with her care. At discharge patient plans to return home and feels this is a safe discharge. CM discussed availability of home health, rehab services, and medical equipment. [facility]. I will contact them to let them know about DC. Patient denied known discharge needs at this time. CM will continue to follow and will assist as needed with dc plans/needs. Financial Associate: Lissett De Paz DCPIA - Discharge Planning Initial Assessment Updated by [email or web address]: Lissett De Paz on 04/09/20 3:35 pm * Is the patient Alert and Oriented? Yes * How many steps to enter\exit or inside your home? * PCP CONCHIS VERSER * [facility] * Preadmission Environment Home with Family * ADLs Independent * Equipment None * List name and contact numbers for known caregivers / representatives who currently or will assist patient after discharge: AUSTYN ZIEGLER * Community resources currently utilized Home Health * Please name any agencies selected above. [facility] [place] * Additional services required to return to the preadmission environment? Yes * Can the patient safely return to the preadmission environment? Yes * Has this patient been hospitalized within the prior 30 days at any hospital? Yes Last DP export: 04/09/20 1:41 pm Patient Name: FABIAN CORTEZ Page [id number] at 1539 All edits/amendments must be made on the electronic document DICTATION DATE: 04/09/20 1539 PARTNER MANAGEMENT CONSULTANT: FELICITA 04/09/20 1539 RPT#: [id number] DC DATE:04/09/20 STATUS: DIS IN [facility] [address] [place] [address] END OF REPORT
--- NOTE | 2020-04-09 15:49 | MORECARE ---
CASE MANAGEMENT DISCHARGE SUMMARY PATIENT: FABIAN CORTEZ UNIT: [id number] ADM DATE: 04/07/20 AGE: 69 : 52 SEX: F ROOM/BED: D.2214 AUTHOR: SALBADOR,DOC PHYSICIAN: REFERRING PHYSICIAN: ANISHA MENDEZ MD DATE OF SERVICE: 04/09/20 Discharge Plan Patient Name: FABIAN CORTEZ Facility: [facility]:[place] : 1950 Planned Disposition: Home with Home Health Anticipated Discharge Date: Discharge Date: 04/09/2020 Expected LOS: Initial Reviewer: [email or web address] Initial Review Date: 04/07/2020 Generated: 04/09/20 4:48 pm Comments DCP- Discharge Planning Updated by [email or web address]: Lissett De Paz on 04/09/20 2:[address] Patient Name: FABIAN CORTEZ Admission Status: ER Accout number: [id number] Admission Date: 04-07-2020 : 1950 Admission Diagnosis:PAIN IN LEFT SHOULDER Attending: BRITTNEY Current LOS: 2 Anticipated DC Date: Planned Disposition: Home with Home Health Primary Insurance: [employer] ADV Discharge Planning Comments: CM met with patient to complete initial dc planning assessment. CM educated patient on the CM role and verbal consent given by patient to complete assessment. Patient lives at home with spouse where she is independent with her care. At discharge patient plans to return home and feels this is a safe discharge. CM discussed availability of home health, rehab services, and medical equipment. [facility]. I will contact them to let them know about DC. Patient denied known discharge needs at this time. CM will continue to follow and will assist as needed with dc plans/needs. Acrobatic Dancer: Lissett De Paz DCPIA - Discharge Planning Initial Assessment Updated by [email or web address]: Lissett De Paz on 04/09/20 3:35 pm * Is the patient Alert and Oriented? Yes * How many steps to enter\exit or inside your home? * PCP [facility] VERSER * [facility] * Preadmission Environment Home with Family * ADLs Independent * Equipment None * List name and contact numbers for known caregivers / representatives who currently or will assist patient after discharge: AUSTYN ZIEGLER * Community resources currently utilized Home Health * Please name any agencies selected above. [facility] [place] * Additional services required to return to the preadmission environment? Yes * Can the patient safely return to the preadmission environment? Yes * Has this patient been hospitalized within the prior 30 days at any hospital? Yes External [facility]iders [facility] Next Contact Date: Service Request Date: Service Type: Resolution: Reviewer: Comments: Last DP export: 04/09/20 2:39 pm Patient Name: FABIAN CORTEZ Page [id number] at 1549 All edits/amendments must be made on the electronic document DICTATION DATE: 04/09/20 1548 ORTHODONTIC LAB TECHNICIAN: FELICITA 04/09/20 1548 RPT#: [id number] DC DATE:04/09/20 STATUS: DIS IN [facility] [address] [place] [address] END OF REPORT
--- NOTE | 2020-04-10 07:38 | MORECARE ---
CASE MANAGEMENT DISCHARGE SUMMARY PATIENT: FABIAN CORTEZ UNIT: [id number] ADM DATE: 04/07/20 AGE: 69 : 54 SEX: F ROOM/BED: D.2214 AUTHOR: SALBADOR,DOC PHYSICIAN: REFERRING PHYSICIAN: ANISHA MENDEZ MD DATE OF SERVICE: 04/10/20 Discharge Plan Patient Name: FABIAN CORTEZ Facility: [facility]:[place] : 1950 Planned Disposition: Home with Home Health Anticipated Discharge Date: Discharge Date: 04/09/2020 Expected LOS: Initial Reviewer: [email or web address] Initial Review Date: 04/07/2020 Generated: 04/10/20 8:38 am Comments DCP- Discharge Planning Updated by [email or web address]: Lissett De Paz on 04/09/20 2:[address] Patient Name: FABIAN CORTEZ Admission Status: ER Accout number: [id number] Admission Date: 04-07-2020 : 1950 Admission Diagnosis:PAIN IN LEFT SHOULDER Attending: BRITTNEY Current LOS: 2 Anticipated DC Date: Planned Disposition: Home with Home Health Primary Insurance: [employer] ADV Discharge Planning Comments: CM met with patient to complete initial dc planning assessment. CM educated patient on the CM role and verbal consent given by patient to complete assessment. Patient lives at home with spouse where she is independent with her care. At discharge patient plans to return home and feels this is a safe discharge. CM discussed availability of home health, rehab services, and medical equipment. [facility]. I will contact them to let them know about DC. Patient denied known discharge needs at this time. CM will continue to follow and will assist as needed with dc plans/needs. Scale Operator: Lissett De Paz DCPIA - Discharge Planning Initial Assessment Updated by [email or web address]: Lissett De Paz on 04/09/20 3:35 pm * Is the patient Alert and Oriented? Yes * How many steps to enter\exit or inside your home? * PCP CON[facility] VERSER * [facility] * Preadmission Environment Home with Family * ADLs Independent * Equipment None * List name and contact numbers for known caregivers / representatives who currently or will assist patient after discharge: AUSTYN ZIEGLER * Community resources currently utilized Home Health * Please name any agencies selected above. [facility] [place] * Additional services required to return to the preadmission environment? Yes * Can the patient safely return to the preadmission environment? Yes * Has this patient been hospitalized within the prior 30 days at any hospital? Yes Coverage Notice Reviewer: [email or web address] Carlos Alberto De Paz Notice Issued Date-Time: 04/09/2020 15:00 Notice Type: Patient Choice Letter Notice Delivered To: Patient Relationship to Patient: [employer] Teacher Name: Delivery Method: HAND - Hand Delivered Noemi Days: Prior Verbal Notification: Recipient Understood Notice: Yes Recipient Signature: Yes Med Rec Note Co-signed by Attending: Coverage Notice Comment: [facility] [place] Last DP export: 04/09/20 2:49 pm Patient Name: FABIAN CORTEZ Page [id number] at 0738 All edits/amendments must be made on the electronic document DICTATION DATE: 04/10/20737 [employer]IVIL [employer] DEPUTY SHERIFF: FELICITA 04/10/20737 RPT#: [id number] DC DATE:04/09/20 STATUS: DIS IN [facility] [address] [place] [address] END OF REPORT
== END 2020-04-09 15:37 | disposition home health service (06) | DRG 556 ==
LOC: D.ER 11:13 → D.MS 13:23
PROVIDERS: Family Medicine; ADMIT Family Medicine; ATTEND Family Medicine
DX: M25.512 Pain in left shoulder (principal); N39.0 Urinary tract infection, site not specified; Z96.612 Presence of left artificial shoulder joint; D64.9 Anemia, unspecified; J44.9 Chronic obstructive pulmonary disease, unspecified; G62.9 Polyneuropathy, unspecified; G89.29 Other chronic pain; K59.00 Constipation, unspecified; W19.XXXA Unspecified fall, initial encounter; R42 Dizziness and giddiness; R41.0 Disorientation, unspecified